=== PATIENT | male | born 1945 | race Caucasian/White ===

== ENCOUNTER 2018-01-08 19:58 | Inpatient (IN) | payer MEDICARE ==
[2018-01-08] MEDS ORDERED: Sodium Chloride 0.9% 10 ML Syringe FLUSH PRN (20:22)
[2018-01-08] MEDS ORDERED: Sodium Chloride 0.9% 2.5 ML Syringe FLUSH PRN (20:22)
[2018-01-08] MEDS ORDERED: Aspirin 81 MG Tab.Chew PO ONE (20:22)
--- NOTE | 2018-01-08 20:25 | EDM.PDOC ---
ED HPI GENERAL MEDICAL PROBLEM - General Chief Complaint: Respiratory Problem Stated Complaint: SOB Time Seen by Provider: 01/08/18 20:08 - History of Present Illness INITIAL COMMENTS - FREE TEXT/NARRATIVE: HISTORY AND PHYSICAL: History of present illness: The patient is a 72-year-old male with a history of congestive heart failure diabetes hypertension hypercholesterolemia who presents with a one-week history of progressive increasing shortness of breath with loose cough and progressive lower extremity edema worsened this evening. Patient's daughter called EMS who on arrival say his sats were in the 80s and the patient does not use oxygen at home. He does not recall ever being on C5 in the past. Patient received Lasix 80 mg, Solu-Medrol 125 mg and 3 dual meds per EMS prior to arrival. He states he does feel better and feels like he is moving air better. He denies any chest pain or abdominal pain and he does not weigh himself on a daily basis to know if he has increased weight. He does state that his lower extremities have been more edematous and a progressive manner over the last week or so. He did see his provider in the clinic, [facility], on Tuesday and had his Lasix dose increased. Patient currently denies any complaints of any pain and has been eating normally According to family member at bedside he has been in to the clinic over the last 2-4 weeks for progressive shortness of breath and they have tried to manage him as an outpatient. Review of systems: As per history of present illness and below otherwise all systems reviewed and negative. Past medical history: As per history of present illness and as reviewed below otherwise noncontributory. Surgical history: As per history of present illness and as reviewed below otherwise noncontributory. Social history: No reported history of drug or alcohol abuse. Family history: As per history of present illness and as reviewed below otherwise noncontributory. Physical exam: General: Well-developed well-nourished overweight man who has audible gurgling and a loose cough in the ER and vital signs have been noted by me. He is currently on oxygen therapy and his sats are 100% on my evaluation. HEENT: Atraumatic, normocephalic, pupils reactive, negative for conjunctival pallor or scleral icterus, mucous membranes moist, throat clear, neck supple, nontender, trachea midline. Lungs: Rhonchi throughout all lung palmer and some abdominal work of breathing but no intercostal muscle use, breath sounds equal bilaterally, chest nontender. Heart: S1S2, regular rate and rhythm and the patient was not placed in the supine position to evaluate for JVD due to his dyspnea. Abdomen: Soft, nondistended, nontender. There appears to be some fluid wave and bowel sounds are hypoactive. Negative for masses or hepatosplenomegaly. Negative for costovertebral tenderness. Pelvis: Stable nontender. Genitourinary: Deferred. Rectal: Deferred. Extremities: Atraumatic, negative for cords or calf pain. Neurovascular unremarkable. There is 3+ pitting edema of his lower extremities to the knee level but no tenderness. Neuro: Awake, alert, oriented. Cranial nerves II through XII unremarkable. Cerebellum unremarkable. Motor and sensory unremarkable throughout. Exam nonfocal. Skin: Overall pale appearance but there is no diaphoresis and turgor is normal Diagnostics: EKG chest x-ray CBC CMP BNP troponin INR ABG UA influenza lactic acid Therapeutics: Patient received Lasix, Solu-Medrol, DuoNeb's prior to arrival IV O2 monitor aspirin C Pap D50 Accu-Chek was performed on arrival to the ED and it was 35. Patient will be given dextrose IV and this will be monitored closely According to the family at bedside the patient had his Lasix dose increased when he was seen in the clinic on Tuesday and he currently takes 80 mg a day. re-eval--patient currently is onCPAP and tolerating it well. His vital signs are stable and we will check an ABG and reevaluate. Family at bedside as well as patient are aware of need for admission and we will continue monitoring his testing results. 2155: Case was discussed with our hospitalist Dr. Omer who was also recontacted with the troponin results. The patient has no acute findings on his EKG and has not had any complaints of chest pain. Dr. Omer is coming in to see and evaluate the patient for either admission here or for transfer. I will discuss this conversation and all testing results with the patient and family at bedside. I discussed all testing results and my concerns with the power of real estate attorney who is on the telephone, the patient's brother. He says that his breathing has been an issue for a long time and he is unsure of when the patient's last echocardiogram was but he does have a history of a stent in the past. According to the brother he was supposed to follow-up and have more testing but the patient never did so. Dr. Omer will come and evaluate for either admission here or transfer. Family is aware [id number]: Dr. Omer is here seeing the patient and evaluating him for disposition and plan Patient will be admitted here to our hospital. Critical care time excluding procedures: 31min Impression: Dyspnea, CHF exacerbation acute on chronic, elevated troponin, episode of hypoglycemia improved Definitive disposition and diagnosis as appropriate pending reevaluation and review of above. Treatments CONTACT CENTER ASSISTANT: Reports: Breathing Treatments, IV/IO - Related Data Allergies Allergy/AdvReac Type Severity Reaction Status Date / Time No Known Allergies Allergy Verified 01/08/18 20:09 Home Meds: Home Meds Dutasteride [Avodart] 0.5 mg PO DAILY 06/06/15 [History] Insulin Aspart [Novolog Flexpen] 1 injection SUBCUT ASDIRECTED 06/06/15 [History ] Insulin Detemir [Levemir] 25 units SUBCUT BID 06/06/15 [History] Losartan Potassium 50 mg PO DAILY 06/06/15 [History] Nitroglycerin [Nitrostat] 0.4 mg SL ASDIRECTED PRN 06/06/15 [History] Tamsulosin HCl 0.4 mg PO DAILY 06/06/15 [History] atorvaSTATin [Lipitor] 40 mg PO DAILY 06/06/15 [History] PARoxetine HCl [Paxil] 40 mg PO DAILY 08/05/15 [History] Furosemide [Lasix] 80 mg PO DAILY 01/08/18 [History] Potassium Chloride [Klor-Con M20] 1 tab PO DAILY 01/08/18 [History] Past Medical History Other HEENT History: hearing aids, wears glasses, top denture Other Gastrointestinal History: occasional heartburn Other Genitourinary History: frequent urination occasional incontinence Other Neuro History: states had holes drilled in his skull following concusion at 18 yrs old - Past Surgical History Other HEENT Surgeries/Procedures: hx fx jaw Other Male Surgeries/Procedures: hx vasectomy Social & Family History - Tobacco Use Smoking Status *Q: Never Smoker - Recreational Drug Use Recreational Drug Use: No Drug Use in Last 12 Months: No ED ROS GENERAL - Review of Systems Review Of Systems: ROS reveals no pertinent complaints other than HPI. ED EXAM, GENERAL - Physical Exam Exam: See Below (See dictation) Course - Vital Signs Last Recorded V/S: Last Vital Signs Temp 36.6 C 01/08/18 20:09 Pulse 96 01/08/18 22:46 Resp 21 H 01/08/18 22:46 BP 106/62 01/08/18 22:46 Pulse Ox 99 01/08/18 22:46 - Orders/Labs/Meds Orders: Active Orders 24 hr Category Date Time Status Blood Glucose Check, Bedside [RC] ONETIME Care 01/08/18 20:23 Active Cardiac Monitoring [RC] . DIRECTED Care 01/08/18 20:21 Active EKG Documentation Completion [RC] STAT Care 01/08/18 20:21 Active Oxygen Therapy, ED [RC] ASDIRECTED Care 01/08/18 20:21 Active Pulse Oximetry [RC] ASDIRECTED Care 01/08/18 20:21 Active RT BiPAP/CPAP [RC] ASDIRECTED Care 01/08/18 20:24 Active Chest 1V Frontal [CR] Stat Exams 01/08/18 20:22 Taken INFLUENZA A+B AG SCREEN [RM] Stat Lab 01/08/18 20:44 Ordered UA W/MICROSCOPIC [URIN] Stat Lab 01/08/18 22:05 Ordered Sodium Chloride 0.9% [Saline Flush] Med 01/08/18 20:22 Active 10 ml FLUSH ASDIRECTED PRN Sodium Chloride 0.9% [Saline Flush] Med 01/08/18 20:22 Active 2.5 ml FLUSH ASDIRECTED PRN Saline Lock Insert [OM.PC] Stat Oth 01/08/18 20:21 Ordered Medication Orders Insulin Aspart (Novolog) 0 unit SUBCUT TIDAC VAN; Protocol Sodium Chloride (Saline Flush) 10 ml FLUSH ASDIRECTED PRN PRN Reason: Keep Vein Open Last Admin: 01/08/18 20:39 Dose: 10 ml Sodium Chloride (Saline Flush) 2.5 ml FLUSH ASDIRECTED PRN PRN Reason: Keep Vein Open Last Admin: 01/08/18 20:37 Dose: 2.5 ml Labs: Laboratory Tests 01/08/18 01/08/18 01/08/18 Range/Units 20:31 20:37 20:37 WBC 8.75 (4.0-11.0) K/uL RBC 4.31 L (4.50-5.90) M/uL Hgb 12.6 L (13.0-17.0) g/dL Hct 39.0 (38.0-50.0) % MCV 90.5 (80.0-98.0) fL MCH 29.2 (27.0-32.0) pg MCHC 32.3 (31.0-37.0) g/dL RDW Std Deviation 49.1 (28.0-62.0) fl RDW Coeff of Osvaldo 15 (11.0-15.0) % Plt Count 134 L (150-400) K/uL MPV 10.40 (7.40-12.00) fL Neut % (Auto) 58.6 (48.0-80.0) % Lymph % (Auto) 29.7 (16.0-40.0) % Chaves % (Auto) 11.4 (0.0-15.0) % Eos % (Auto) 0.1 (0.0-7.0) % Baso % (Auto) 0.2 (0.0-1.5) % Neut # (Auto) 5.1 (1.4-5.7) K/uL Lymph # (Auto) 2.6 H (0.6-2.4) K/uL Chaves # (Auto) 1.0 H (0.0-0.8) K/uL Eos # (Auto) 0.0 (0.0-0.7) K/uL Baso # (Auto) 0.0 (0.0-0.1) K/uL Nucleated RBC % 0.0 /100WBC Nucleated RBCs # 0 K/uL INR 1.32 ABG pH (7.35-7.45) ABG pCO2 (35-45) mmHG ABG pO2 (75-100) mmHG ABG HCO3 ABG Total CO2 ABG Base Excess Lactate (0.20-2.00) mmol/L Sodium (136-148) mmol/L Potassium (3.5-5.1) mmol/L Chloride (98-107) mmol/L Carbon Dioxide (21.0-32.0) mmol/L BUN (7.0-18.0) mg/dL Creatinine (0.8-1.3) mg/dL Est Cr Clr Drug Dosing mL/min Estimated GFR (MDRD) ml/min Glucose (74-106) mg/dL POC Glucose 35 L (60-110) mg/dL Calcium (8.5-10.1) mg/dL Total Bilirubin (0.2-1.0) mg/dL AST (15-37) IU/L ALT (14-63) IU/L Alkaline Phosphatase (46-116) U/L Troponin I (0.000-0.056) ng/mL B-Natriuretic Peptide (<100) PG/ML Total Protein (6.4-8.2) g/dL Albumin (3.4-5.0) g/dL Globulin (2.0-3.5) g/dL Albumin/Globulin Ratio (1.3-2.8) Urine Color Urine Appearance Urine pH (5.0-8.0) Ur Specific Iliff (1.001-1.035) Urine Protein (NEGATIVE) mg/dL Urine Glucose (UA) (NEGATIVE) mg/dL Urine Ketones (NEGATIVE) mg/dL Urine Occult Blood (NEGATIVE) Urine Nitrite (NEGATIVE) Urine Bilirubin (NEGATIVE) Urine Urobilinogen (<2.0) EU/dL Ur Leukocyte Esterase (NEGATIVE) Urine RBC (0-2/HPF) Urine WBC (0-5/HPF) Ur Epithelial Cells (NONE-FEW) Urine Bacteria (NEGATIVE) 01/08/18 01/08/18 01/08/18 Range/Units 20:37 20:37 20:37 WBC (4.0-11.0) K/uL RBC (4.50-5.90) M/uL Hgb (13.0-17.0) g/dL Hct (38.0-50.0) % MCV (80.0-98.0) fL MCH (27.0-32.0) pg MCHC (31.0-37.0) g/dL RDW Std Deviation (28.0-62.0) fl RDW Coeff of Osvaldo (11.0-15.0) % Plt Count (150-400) K/uL MPV (7.40-12.00) fL Neut % (Auto) (48.0-80.0) % Lymph % (Auto) (16.0-40.0) % Chaves % (Auto) (0.0-15.0) % Eos % (Auto) (0.0-7.0) % Baso % (Auto) (0.0-1.5) % Neut # (Auto) (1.4-5.7) K/uL Lymph # (Auto) (0.6-2.4) K/uL Chaves # (Auto) (0.0-0.8) K/uL Eos # (Auto) (0.0-0.7) K/uL Baso # (Auto) (0.0-0.1) K/uL Nucleated RBC % /100WBC Nucleated RBCs # K/uL INR ABG pH (7.35-7.45) ABG pCO2 (35-45) mmHG ABG pO2 (75-100) mmHG ABG HCO3 ABG Total CO2 ABG Base Excess Lactate 1.8 (0.20-2.00) mmol/L Sodium 140 (136-148) mmol/L Potassium 3.6 (3.5-5.1) mmol/L Chloride 103 (98-107) mmol/L Carbon Dioxide 26.3 (21.0-32.0) mmol/L BUN 30 H (7.0-18.0) mg/dL Creatinine 1.4 H (0.8-1.3) mg/dL Est Cr Clr Drug Dosing 50.69 mL/min Estimated GFR (MDRD) 50.1 ml/min Glucose 40 L (74-106) mg/dL POC Glucose (60-110) mg/dL Calcium 9.6 (8.5-10.1) mg/dL Total Bilirubin 2.4 H (0.2-1.0) mg/dL AST 85 H (15-37) IU/L ALT 78 H (14-63) IU/L Alkaline Phosphatase 84 (46-116) U/L Troponin I 0.827 H* (0.000-0.056) ng/mL B-Natriuretic Peptide 1669 H (<100) PG/ML Total Protein 6.7 (6.4-8.2) g/dL Albumin 4.0 (3.4-5.0) g/dL Globulin 2.7 (2.0-3.5) g/dL Albumin/Globulin Ratio 1.5 (1.3-2.8) Urine Color Urine Appearance Urine pH (5.0-8.0) Ur Specific Iliff (1.001-1.035) Urine Protein (NEGATIVE) mg/dL Urine Glucose (UA) (NEGATIVE) mg/dL Urine Ketones (NEGATIVE) mg/dL Urine Occult Blood (NEGATIVE) Urine Nitrite (NEGATIVE) Urine Bilirubin (NEGATIVE) Urine Urobilinogen (<2.0) EU/dL Ur Leukocyte Esterase (NEGATIVE) Urine RBC (0-2/HPF) Urine WBC (0-5/HPF) Ur Epithelial Cells (NONE-FEW) Urine Bacteria (NEGATIVE) 01/08/18 01/08/18 01/08/18 Range/Units 21:05 21:07 22:05 WBC (4.0-11.0) K/uL RBC (4.50-5.90) M/uL Hgb (13.0-17.0) g/dL Hct (38.0-50.0) % MCV (80.0-98.0) fL MCH (27.0-32.0) pg MCHC (31.0-37.0) g/dL RDW Std Deviation (28.0-62.0) fl RDW Coeff of Osvaldo (11.0-15.0) % Plt Count (150-400) K/uL MPV (7.40-12.00) fL Neut % (Auto) (48.0-80.0) % Lymph % (Auto) (16.0-40.0) % Chaves % (Auto) (0.0-15.0) % Eos % (Auto) (0.0-7.0) % Baso % (Auto) (0.0-1.5) % Neut # (Auto) (1.4-5.7) K/uL Lymph # (Auto) (0.6-2.4) K/uL Chaves # (Auto) (0.0-0.8) K/uL Eos # (Auto) (0.0-0.7) K/uL Baso # (Auto) (0.0-0.1) K/uL Nucleated RBC % /100WBC Nucleated RBCs # K/uL INR ABG pH 7.404 (7.35-7.45) ABG pCO2 36 (35-45) mmHG ABG pO2 85 (75-100) mmHG ABG HCO3 22.8 ABG Total CO2 24 ABG Base Excess -2 Lactate (0.20-2.00) mmol/L Sodium (136-148) mmol/L Potassium (3.5-5.1) mmol/L Chloride (98-107) mmol/L Carbon Dioxide (21.0-32.0) mmol/L BUN (7.0-18.0) mg/dL Creatinine (0.8-1.3) mg/dL Est Cr Clr Drug Dosing mL/min Estimated GFR (MDRD) ml/min Glucose (74-106) mg/dL POC Glucose 105 (60-110) mg/dL Calcium (8.5-10.1) mg/dL Total Bilirubin (0.2-1.0) mg/dL AST (15-37) IU/L ALT (14-63) IU/L Alkaline Phosphatase (46-116) U/L Troponin I (0.000-0.056) ng/mL B-Natriuretic Peptide (<100) PG/ML Total Protein (6.4-8.2) g/dL Albumin (3.4-5.0) g/dL Globulin (2.0-3.5) g/dL Albumin/Globulin Ratio (1.3-2.8) Urine Color YELLOW Urine Appearance CLEAR Urine pH 5.0 (5.0-8.0) Ur Specific Iliff 1.010 (1.001-1.035) Urine Protein NEGATIVE (NEGATIVE) mg/dL Urine Glucose (UA) NEGATIVE (NEGATIVE) mg/dL Urine Ketones NEGATIVE (NEGATIVE) mg/dL Urine Occult Blood NEGATIVE (NEGATIVE) Urine Nitrite NEGATIVE (NEGATIVE) Urine Bilirubin NEGATIVE (NEGATIVE) Urine Urobilinogen 0.2 (<2.0) EU/dL Ur Leukocyte Esterase NEGATIVE (NEGATIVE) Urine RBC 0-1 (0-2/HPF) Urine WBC 0-1 (0-5/HPF) Ur Epithelial Cells RARE (NONE-FEW) Urine Bacteria FEW (NEGATIVE) Meds: Medications Generic Name Dose Route Start Last Admin Trade Name Freq PRN Reason Stop Dose Admin Insulin Aspart 0 unit 01/09/18 07:30 Novolog SUBCUT TIDAC [facility] Protocol Sodium Chloride 10 ml 01/08/18 20:22 01/08/18 20:39 Saline Flush FLUSH 10 ml ASDIRECTED PRN Administration Keep Vein Open Sodium Chloride 2.5 ml 01/08/18 20:22 01/08/18 20:37 Saline Flush FLUSH 2.5 ml ASDIRECTED PRN Administration Keep Vein Open Discontinued Medications Generic Name Dose Route Start Last Admin Trade Name Jordyn PRN Reason Stop Dose Admin Aspirin 324 mg 01/08/18 20:22 01/08/18 20:37 Aspirin PO 01/08/18 20:23 324 mg ONETIME ONE Administration Dextrose/Water 50 ml 01/08/18 20:32 01/08/18 20:39 Dextrose 50% In Water IVPUSH 01/08/18 20:33 50 ml ONETIME ONE Administration Departure - Departure Time of Disposition: 23:24 Disposition: Admitted As Inpatient 68 Condition: Good Clinical Impression: Elevated troponin Congestive heart failure Qualifiers: Heart failure type: unspecified Heart failure chronicity: acute on chronic Qualified Code(s): I50.9 - Heart failure, unspecified - Discharge Information - My Orders Last 24 Hours: My Active Orders 01/08/18 20:21 Cardiac Monitoring [RC] . DIRECTED EKG Documentation Completion [RC] STAT Oxygen Therapy, ED [RC] ASDIRECTED Pulse Oximetry [RC] ASDIRECTED Saline Lock Insert [OM.PC] Stat 01/08/18 20:22 Chest 1V Frontal [CR] Stat Sodium Chloride 0.9% [Saline Flush] 10 ml FLUSH ASDIRECTED PRN Sodium Chloride 0.9% [Saline Flush] 2.5 ml FLUSH ASDIRECTED PRN 01/08/18 20:23 Blood Glucose Check, Bedside [RC] ONETIME 01/08/18 20:24 RT BiPAP/CPAP [RC] ASDIRECTED 01/08/18 20:44 INFLUENZA A+B AG SCREEN [RM] Stat 01/08/18 22:05 UA W/MICROSCOPIC [URIN] Stat - Assessment/Plan Last 24 Hours: My Active Orders 01/08/18 20:21 Cardiac Monitoring [RC] . DIRECTED EKG Documentation Completion [RC] STAT Oxygen Therapy, ED [RC] ASDIRECTED Pulse Oximetry [RC] ASDIRECTED Saline Lock Insert [OM.PC] Stat 01/08/18 20:22 Chest 1V Frontal [CR] Stat Sodium Chloride 0.9% [Saline Flush] 10 ml FLUSH ASDIRECTED PRN Sodium Chloride 0.9% [Saline Flush] 2.5 ml FLUSH ASDIRECTED PRN 01/08/18 20:23 Blood Glucose Check, Bedside [RC] ONETIME 01/08/18 20:24 RT BiPAP/CPAP [RC] ASDIRECTED 01/08/18 20:44 INFLUENZA A+B AG SCREEN [RM] Stat 01/08/18 22:05 UA W/MICROSCOPIC [URIN] Stat
[2018-01-08] MEDS ORDERED: 50% Dextrose in Water 50 ML Syringe IVPUSH ONE (20:32)
--- NOTE | 2018-01-08 23:18 | PCM.HP ---
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 Over the past month he has had shortness of breath with exertion, increase leg edema and orthopnea. This week his lasix dose was increased from 40mg to 80 mg. He has a gradual worsening over the past several days. Patient reports a rattling in his chest. He arrived by EMS on Bipap and he received 80mg of lasix IV, solumedrol and duonebs. He was taken off the Bipap in the ED and satting 98% on NRB. - Related Data Allergies/Adverse Reactions: Allergies Allergy/AdvReac Type Severity Reaction Status Date / Time No Known Allergies Allergy Verified 01/08/18 20:09 Home Medications: Home Meds Dutasteride [Avodart] 0.5 mg PO DAILY 06/06/15 [History] Insulin Aspart [Novolog Flexpen] 1 injection SUBCUT ASDIRECTED 06/06/15 [History ] Insulin Detemir [Levemir] 25 units SUBCUT BID 06/06/15 [History] Losartan Potassium 50 mg PO DAILY 06/06/15 [History] Nitroglycerin [Nitrostat] 0.4 mg SL ASDIRECTED PRN 06/06/15 [History] Tamsulosin HCl 0.4 mg PO DAILY 06/06/15 [History] atorvaSTATin [Lipitor] 40 mg PO DAILY 06/06/15 [History] PARoxetine HCl [Paxil] 40 mg PO DAILY 08/05/15 [History] Furosemide [Lasix] 80 mg PO DAILY 01/08/18 [History] Potassium Chloride [Klor-Con M20] 1 tab PO DAILY 01/08/18 [History] Past Medical History Other HEENT History: hearing aids, wears glasses, top denture Cardiovascular History: Reports: Heart Failure, High Cholesterol, Hypertension, Other (See Below) Other Cardiovascular History: Heart Attack Respiratory History: Reports: None Other Gastrointestinal History: occasional heartburn Other Genitourinary History: frequent urination occasional incontinence Musculoskeletal History: Reports: None Other Neuro History: states had holes drilled in his skull following concusion at 18 yrs old Psychiatric History: Reports: None Endocrine/Metabolic History: Reports: Diabetes, Type II Hematologic History: Reports: None Immunologic History: Reports: None Oncologic (Cancer) History: Reports: None Dermatologic History: Reports: None - Infectious Disease History Infectious Disease History: Reports: None - Past Surgical History Other HEENT Surgeries/Procedures: hx fx jaw Other Male Surgeries/Procedures: hx vasectomy Social & Family History - Family History Family Medical History: Noncontributory - Tobacco Use Smoking Status *Q: Never Smoker Used Tobacco, but Quit: No - Caffeine Use Caffeine Use: Reports: Coffee - Recreational Drug Use Recreational Drug Use: No Drug Use in Last 12 Months: No H&P Review of Systems - Review of Systems: Review Of Systems: ROS reveals no pertinent complaints other than HPI. Exam - Exam Exam: See Below - Vital Signs Vital Signs: Last Vital Signs Temp 36.6 C 01/08/18 20:09 Pulse 96 01/08/18 22:46 Resp 21 H 01/08/18 22:46 BP 106/62 01/08/18 22:46 Pulse Ox 99 01/08/18 22:46 Weight: 117.934 kg - Exam General: Alert HEENT: Mucosa Moist & [place] Lungs: Rales, Other (excessory muscle use) Cardiovascular: Regular Rate, Regular Rhythm GI/Abdominal Exam: Soft, Non-Tender Extremities: Pedal Edema (+2) Skin: Warm, Dry, Intact - Patient Data Lab Results Last 24 hrs: Laboratory Results - last 24 hr 01/08/18 01/08/18 01/08/18 Range/Units 20:31 20:37 20:37 WBC 8.75 (4.0-11.0) K/uL RBC 4.31 L (4.50-5.90) M/uL Hgb 12.6 L (13.0-17.0) g/dL Hct 39.0 (38.0-50.0) % MCV 90.5 (80.0-98.0) fL MCH 29.2 (27.0-32.0) pg MCHC 32.3 (31.0-37.0) g/dL RDW Std Deviation 49.1 (28.0-62.0) fl RDW Coeff of Osvaldo 15 (11.0-15.0) % Plt Count 134 L (150-400) K/uL MPV 10.40 (7.40-12.00) fL Neut % (Auto) 58.6 (48.0-80.0) % Lymph % (Auto) 29.7 (16.0-40.0) % [place] % (Auto) 11.4 (0.0-15.0) % Eos % (Auto) 0.1 (0.0-7.0) % Baso % (Auto) 0.2 (0.0-1.5) % Neut # (Auto) 5.1 (1.4-5.7) K/uL Lymph # (Auto) 2.6 H (0.6-2.4) K/uL [place] # (Auto) 1.0 H (0.0-0.8) K/uL Eos # (Auto) 0.0 (0.0-0.7) K/uL Baso # (Auto) 0.0 (0.0-0.1) K/uL Nucleated RBC % 0.0 /100WBC Nucleated RBCs # 0 K/uL INR 1.32 ABG pH (7.35-7.45) ABG pCO2 (35-45) mmHG ABG pO2 (75-100) mmHG ABG HCO3 ABG Total CO2 ABG Base Excess Lactate (0.20-2.00) mmol/L Sodium (136-148) mmol/L Potassium (3.5-5.1) mmol/L Chloride (98-107) mmol/L Carbon Dioxide (21.0-32.0) mmol/L BUN (7.0-18.0) mg/dL Creatinine (0.8-1.3) mg/dL Est Cr Clr Drug Dosing mL/min Estimated GFR (MDRD) ml/min Glucose (74-106) mg/dL POC Glucose 35 L (60-110) mg/dL Calcium (8.5-10.1) mg/dL Total Bilirubin (0.2-1.0) mg/dL AST (15-37) IU/L ALT (14-63) IU/L Alkaline Phosphatase (46-116) U/L Troponin I (0.000-0.056) ng/mL B-Natriuretic Peptide (<100) PG/ML Total Protein (6.4-8.2) g/dL Albumin (3.4-5.0) g/dL Globulin (2.0-3.5) g/dL Albumin/Globulin Ratio (1.3-2.8) Urine Color Urine Appearance Urine pH (5.0-8.0) Ur Specific [place] (1.001-1.035) Urine Protein (NEGATIVE) mg/dL Urine Glucose (UA) (NEGATIVE) mg/dL Urine Ketones (NEGATIVE) mg/dL Urine Occult Blood (NEGATIVE) Urine Nitrite (NEGATIVE) Urine Bilirubin (NEGATIVE) Urine Urobilinogen (<2.0) EU/dL Ur Leukocyte Esterase (NEGATIVE) Urine RBC (0-2/HPF) Urine WBC (0-5/HPF) Ur Epithelial Cells (NONE-FEW) Urine Bacteria (NEGATIVE) 01/08/18 01/08/18 01/08/18 Range/Units 20:37 20:37 20:37 WBC (4.0-11.0) K/uL RBC (4.50-5.90) M/uL Hgb (13.0-17.0) g/dL Hct (38.0-50.0) % MCV (80.0-98.0) fL MCH (27.0-32.0) pg MCHC (31.0-37.0) g/dL RDW Std Deviation (28.0-62.0) fl RDW Coeff of [place]val[place] (11.0-15.0) % Plt Count (150-400) K/uL MPV (7.40-12.00) fL Neut % (Auto) (48.0-80.0) % Lymph % (Auto) (16.0-40.0) % [place] % (Auto) (0.0-15.0) % Eos % (Auto) (0.0-7.0) % Baso % (Auto) (0.0-1.5) % Neut # (Auto) (1.4-5.7) K/uL Lymph # (Auto) (0.6-2.4) K/uL [place] # (Auto) (0.0-0.8) K/uL Eos # (Auto) (0.0-0.7) K/uL Baso # (Auto) (0.0-0.1) K/uL Nucleated RBC % /100WBC Nucleated RBCs # K/uL INR ABG pH (7.35-7.45) ABG pCO2 (35-45) mmHG ABG pO2 (75-100) mmHG ABG HCO3 ABG Total CO2 ABG Base Excess Lactate 1.8 (0.20-2.00) mmol/L Sodium 140 (136-148) mmol/L Potassium 3.6 (3.5-5.1) mmol/L Chloride 103 (98-107) mmol/L Carbon Dioxide 26.3 (21.0-32.0) mmol/L BUN 30 H (7.0-18.0) mg/dL Creatinine 1.4 H (0.8-1.3) mg/dL Est Cr Clr Drug Dosing 50.69 mL/min Estimated GFR (MDRD) 50.1 ml/min Glucose 40 L (74-106) mg/dL POC Glucose (60-110) mg/dL Calcium 9.6 (8.5-10.1) mg/dL Total Bilirubin 2.4 H (0.2-1.0) mg/dL AST 85 H (15-37) IU/L ALT 78 H (14-63) IU/L Alkaline Phosphatase 84 (46-116) U/L Troponin I 0.827 H* (0.000-0.056) ng/mL B-Natriuretic Peptide 1669 H (<100) PG/ML Total Protein 6.7 (6.4-8.2) g/dL Albumin 4.0 (3.4-5.0) g/dL Globulin 2.7 (2.0-3.5) g/dL Albumin/Globulin Ratio 1.5 (1.3-2.8) Urine Color Urine Appearance Urine pH (5.0-8.0) Ur Specific [place] (1.001-1.035) Urine Protein (NEGATIVE) mg/dL Urine Glucose (UA) (NEGATIVE) mg/dL Urine Ketones (NEGATIVE) mg/dL Urine Occult Blood (NEGATIVE) Urine Nitrite (NEGATIVE) Urine Bilirubin (NEGATIVE) Urine Urobilinogen (<2.0) EU/dL Ur Leukocyte Esterase (NEGATIVE) Urine RBC (0-2/HPF) Urine WBC (0-5/HPF) Ur Epithelial Cells (NONE-FEW) Urine Bacteria (NEGATIVE) 01/08/18 01/08/18 01/08/18 Range/Units 21:05 21:07 22:05 WBC (4.0-11.0) K/uL RBC (4.50-5.90) M/uL Hgb (13.0-17.0) g/dL Hct (38.0-50.0) % MCV (80.0-98.0) fL MCH (27.0-32.0) pg MCHC (31.0-37.0) g/dL RDW Std Deviation (28.0-62.0) fl RDW Coeff of [place] (11.0-15.0) % Plt Count (150-400) K/uL MPV (7.40-12.00) fL Neut % (Auto) (48.0-80.0) % Lymph % (Auto) (16.0-40.0) % [place] % (Auto) (0.0-15.0) % Eos % (Auto) (0.0-7.0) % Baso % (Auto) (0.0-1.5) % Neut # (Auto) (1.4-5.7) K/uL Lymph # (Auto) (0.6-2.4) K/uL [place] # (Auto) (0.0-0.8) K/uL Eos # (Auto) (0.0-0.7) K/uL Baso # (Auto) (0.0-0.1) K/uL Nucleated RBC % /100WBC Nucleated RBCs # K/uL INR ABG pH 7.404 (7.35-7.45) ABG pCO2 36 (35-45) mmHG ABG pO2 85 (75-100) mmHG ABG HCO3 22.8 ABG Total CO2 24 ABG Base Excess -2 Lactate (0.20-2.00) mmol/L Sodium (136-148) mmol/L Potassium (3.5-5.1) mmol/L Chloride (98-107) mmol/L Carbon Dioxide (21.0-32.0) mmol/L BUN (7.0-18.0) mg/dL Creatinine (0.8-1.3) mg/dL Est Cr Clr Drug Dosing mL/min Estimated GFR (MDRD) ml/min Glucose (74-106) mg/dL POC Glucose 105 (60-110) mg/dL Calcium (8.5-10.1) mg/dL Total Bilirubin (0.2-1.0) mg/dL AST (15-37) IU/L ALT (14-63) IU/L Alkaline Phosphatase (46-116) U/L Troponin I (0.000-0.056) ng/mL B-Natriuretic Peptide (<100) PG/ML Total Protein (6.4-8.2) g/dL Albumin (3.4-5.0) g/dL Globulin (2.0-3.5) g/dL Albumin/Globulin Ratio (1.3-2.8) Urine Color YELLOW Urine Appearance CLEAR Urine pH 5.0 (5.0-8.0) Ur Specific [place] 1.010 (1.001-1.035) Urine Protein NEGATIVE (NEGATIVE) mg/dL Urine Glucose (UA) NEGATIVE (NEGATIVE) mg/dL Urine Ketones NEGATIVE (NEGATIVE) mg/dL Urine Occult Blood NEGATIVE (NEGATIVE) Urine Nitrite NEGATIVE (NEGATIVE) Urine Bilirubin NEGATIVE (NEGATIVE) Urine Urobilinogen 0.2 (<2.0) EU/dL Ur Leukocyte Esterase NEGATIVE (NEGATIVE) Urine RBC 0-1 (0-2/HPF) Urine WBC 0-1 (0-5/HPF) Ur Epithelial Cells RARE (NONE-FEW) Urine Bacteria FEW (NEGATIVE) Result Diagrams: 01/09/18 04:50 01/09/18 04:50 Yoan Results Last 24 hrs: Microbiology 01/08/18 20:44 Influenza Type A Antigen Screen - Final Nasopharyngeal Swab NEGATIVE INFLUENZA A VIRUS AG Influenza Type B Antigen Screen - Final NEGATIVE INFLUENZA B VIRUS AG Imaging Impressions Last 24 hrs: CXR: bibasilar infiltrates EKG INTERPRETATION Rhythm: NSR Rate (Beats/Min): 105 ST-T: Normal Problem List Initiated/Reviewed/Updated: Yes Orders Last 24hrs: Active Orders 24 hr Category Date Time Status Blood Glucose Check, Bedside [RC] ONETIME Care 01/08/18 20:23 Active Cardiac Monitoring [RC] . DIRECTED Care 01/08/18 20:21 Active EKG Documentation Completion [RC] STAT Care 01/08/18 20:21 Active Oxygen Therapy, ED [RC] ASDIRECTED Care 01/08/18 20:21 Active Pulse Oximetry [RC] ASDIRECTED Care 01/08/18 20:21 Active RT BiPAP/CPAP [RC] ASDIRECTED Care 01/08/18 20:24 Active Chest 1V Frontal [CR] Stat Exams 01/08/18 20:22 Taken INFLUENZA A+B AG SCREEN [RM] Stat Lab 01/08/18 20:44 Ordered UA W/MICROSCOPIC [URIN] Stat Lab 01/08/18 22:05 Ordered Sodium Chloride 0.9% [Saline Flush] Med 01/08/18 20:22 Active 10 ml FLUSH ASDIRECTED PRN Sodium Chloride 0.9% [Saline Flush] Med 01/08/18 20:22 Active 2.5 ml FLUSH ASDIRECTED PRN Saline Lock Insert [OM.PC] Stat Oth 01/08/18 20:21 Ordered Medication Orders Sodium Chloride (Saline Flush) 10 ml FLUSH ASDIRECTED PRN PRN Reason: Keep Vein Open Last Admin: 01/08/18 20:39 Dose: 10 ml Sodium Chloride (Saline Flush) 2.5 ml FLUSH ASDIRECTED PRN PRN Reason: Keep Vein Open Last Admin: 01/08/18 20:37 Dose: 2.5 ml Assessment/Plan Comment:: 72 yo male admitted with acute hypoxic respiratory and CHF exacerbation CHF exacerbation will diuresis with lasix, has received 80mg of lasix and is making urine Acute hypoxic respiratory failure: will continue to monitor may benefit BIPAP but right now patient is refusing Mildly elevated troponin: likely troponin leak from acute illness. has received ASA, will trend Hypoglycemia: resolved with D50 will continue to monitor
[2018-01-09] MEDS: Heparin Sodium 5,000 Units/ML Vial SUBCUT SCH ×4 (00:36→22:30)
[2018-01-09] MEDS ORDERED: 50% Dextrose in Water 50 ML Syringe IVPUSH STA (00:40)
[2018-01-09] MEDS: Albuterol/Ipratropium 3.0-0.5 MG/3 ML Neb Soln NEB PRN ×2 (00:50→19:47)
[2018-01-09] MEDS: Dextrose 5% in Water 1,000 ML IV SCH (01:25)
[2018-01-09] MEDS: Insulin Aspart 100 Units/ML 3 ML Pen SUBCUT SCH ×3 (08:06→17:24)
[2018-01-09] MEDS ORDERED: Furosemide 40 MG/4 ML VIAL IVPUSH ONE ×3 (09:00→10:37)
--- NOTE | 2018-01-09 09:59 | CR ---
EXAMINATION: Portable chest radiograph. HISTORY: Shortness of breath. FINDINGS: The trachea is midline. The heart is borderline in size. The cardiomediastinal silhouette is within n ormal limits. No pulmonary infiltrates, effusions or pneumothorax. Osseous structures appear unremarkable. IMPRESSION: No acute cardiopulmonary process.
--- NOTE | 2018-01-09 11:07 | PCM.PN ---
- General Info Date of Service: 01/09/18 Subjective Update: Patient is still having obvious fluid retention, he has audible rales, he does however feel better than yesterday. Patient denies any fevers or chills at the present moment. Still quite short of breath. - Patient Data Vitals - Most Recent: Last Vital Signs Temp 36.4 C 01/09/18 08:00 Pulse 92 01/09/18 06:46 Resp 26 H 01/09/18 10:00 BP 119/83 01/09/18 10:00 Pulse Ox 95 01/09/18 10:00 Weight - Most Recent: 115.3 kg I&O - Last 24 Hours: Intake & Output 01/08/18 01/09/18 01/09/18 22:59 06:59 14:59 Intake Total 420 120 Output Total 1450 750 Balance -1030 -630 Lab Results Last 24 Hours: Laboratory Results - last 24 hr 01/08/18 01/08/18 01/08/18 Range/Units 20:31 20:37 20:37 WBC 8.75 (4.0-11.0) K/uL RBC 4.31 L (4.50-5.90) M/uL Hgb 12.6 L (13.0-17.0) g/dL Hct 39.0 (38.0-50.0) % MCV 90.5 (80.0-98.0) fL MCH 29.2 (27.0-32.0) pg MCHC 32.3 (31.0-37.0) g/dL RDW Std Deviation 49.1 (28.0-62.0) fl RDW Coeff of Osvaldo 15 (11.0-15.0) % Plt Count 134 L (150-400) K/uL MPV 10.40 (7.40-12.00) fL Neut % (Auto) 58.6 (48.0-80.0) % Lymph % (Auto) 29.7 (16.0-40.0) % [place] % (Auto) 11.4 (0.0-15.0) % Eos % (Auto) 0.1 (0.0-7.0) % Baso % (Auto) 0.2 (0.0-1.5) % Neut # (Auto) 5.1 (1.4-5.7) K/uL Lymph # (Auto) 2.6 H (0.6-2.4) K/uL [place] # (Auto) 1.0 H (0.0-0.8) K/uL Eos # (Auto) 0.0 (0.0-0.7) K/uL Baso # (Auto) 0.0 (0.0-0.1) K/uL Nucleated RBC % 0.0 /100WBC Nucleated RBCs # 0 K/uL INR 1.32 ABG pH (7.35-7.45) ABG pCO2 (35-45) mmHG ABG pO2 (75-100) mmHG ABG HCO3 ABG Total CO2 ABG Base Excess Lactate (0.20-2.00) mmol/L Sodium (136-148) mmol/L Potassium (3.5-5.1) mmol/L Chloride (98-107) mmol/L Carbon Dioxide (21.0-32.0) mmol/L BUN (7.0-18.0) mg/dL Creatinine (0.8-1.3) mg/dL Est Cr Clr Drug Dosing mL/min Estimated GFR (MDRD) ml/min Glucose (74-106) mg/dL POC Glucose 35 L (60-110) mg/dL Calcium (8.5-10.1) mg/dL Total Bilirubin (0.2-1.0) mg/dL AST (15-37) IU/L ALT (14-63) IU/L Alkaline Phosphatase (46-116) U/L Troponin I (0.000-0.056) ng/mL B-Natriuretic Peptide (<100) PG/ML Total Protein (6.4-8.2) g/dL Albumin (3.4-5.0) g/dL Globulin (2.0-3.5) g/dL Albumin/Globulin Ratio (1.3-2.8) Urine Color Urine Appearance Urine pH (5.0-8.0) Ur Specific [place] (1.001-1.035) Urine Protein (NEGATIVE) mg/dL Urine Glucose (UA) (NEGATIVE) mg/dL Urine Ketones (NEGATIVE) mg/dL Urine Occult Blood (NEGATIVE) Urine Nitrite (NEGATIVE) Urine Bilirubin (NEGATIVE) Urine Urobilinogen (<2.0) EU/dL Ur Leukocyte Esterase (NEGATIVE) Urine RBC (0-2/HPF) Urine WBC (0-5/HPF) Ur Epithelial Cells (NONE-FEW) Urine Bacteria (NEGATIVE) 01/08/18 01/08/18 01/08/18 Range/Units 20:37 20:37 20:37 WBC (4.0-11.0) K/uL RBC (4.50-5.90) M/uL Hgb (13.0-17.0) g/dL Hct (38.0-50.0) % MCV (80.0-98.0) fL MCH (27.0-32.0) pg MCHC (31.0-37.0) g/dL RDW Std Deviation (28.0-62.0) fl RDW Coeff of Osvaldo (11.0-15.0) % Plt Count (150-400) K/uL MPV (7.40-12.00) fL Neut % (Auto) (48.0-80.0) % Lymph % (Auto) (16.0-40.0) % [place] % (Auto) (0.0-15.0) % Eos % (Auto) (0.0-7.0) % Baso % (Auto) (0.0-1.5) % Neut # (Auto) (1.4-5.7) K/uL Lymph # (Auto) (0.6-2.4) K/uL [place] # (Auto) (0.0-0.8) K/uL Eos # (Auto) (0.0-0.7) K/uL Baso # (Auto) (0.0-0.1) K/uL Nucleated RBC % /100WBC Nucleated RBCs # K/uL INR ABG pH (7.35-7.45) ABG pCO2 (35-45) mmHG ABG pO2 (75-100) mmHG ABG HCO3 ABG Total CO2 ABG Base Excess Lactate 1.8 (0.20-2.00) mmol/L Sodium 140 (136-148) mmol/L Potassium 3.6 (3.5-5.1) mmol/L Chloride 103 (98-107) mmol/L Carbon Dioxide 26.3 (21.0-32.0) mmol/L BUN 30 H (7.0-18.0) mg/dL Creatinine 1.4 H (0.8-1.3) mg/dL Est Cr Clr Drug Dosing 50.69 mL/min Estimated GFR (MDRD) 50.1 ml/min Glucose 40 L (74-106) mg/dL POC Glucose (60-110) mg/dL Calcium 9.6 (8.5-10.1) mg/dL Total Bilirubin 2.4 H (0.2-1.0) mg/dL AST 85 H (15-37) IU/L ALT 78 H (14-63) IU/L Alkaline Phosphatase 84 (46-116) U/L Troponin I 0.827 H* (0.000-0.056) ng/mL B-Natriuretic Peptide 1669 H (<100) PG/ML Total Protein 6.7 (6.4-8.2) g/dL Albumin 4.0 (3.4-5.0) g/dL Globulin 2.7 (2.0-3.5) g/dL Albumin/Globulin Ratio 1.5 (1.3-2.8) Urine Color Urine Appearance Urine pH (5.0-8.0) Ur Specific [place] (1.001-1.035) Urine Protein (NEGATIVE) mg/dL Urine Glucose (UA) (NEGATIVE) mg/dL Urine Ketones (NEGATIVE) mg/dL Urine Occult Blood (NEGATIVE) Urine Nitrite (NEGATIVE) Urine Bilirubin (NEGATIVE) Urine Urobilinogen (<2.0) EU/dL Ur Leukocyte Esterase (NEGATIVE) Urine RBC (0-2/HPF) Urine WBC (0-5/HPF) Ur Epithelial Cells (NONE-FEW) Urine Bacteria (NEGATIVE) 01/08/18 01/08/18 01/08/18 Range/Units 21:05 21:07 22:05 WBC (4.0-11.0) K/uL RBC (4.50-5.90) M/uL Hgb (13.0-17.0) g/dL Hct (38.0-50.0) % MCV (80.0-98.0) fL MCH (27.0-32.0) pg MCHC (31.0-37.0) g/dL RDW Std Deviation (28.0-62.0) fl RDW Coeff of Osvaldo (11.0-15.0) % Plt Count (150-400) K/uL MPV (7.40-12.00) fL Neut % (Auto) (48.0-80.0) % Lymph % (Auto) (16.0-40.0) % [place] % (Auto) (0.0-15.0) % Eos % (Auto) (0.0-7.0) % Baso % (Auto) (0.0-1.5) % Neut # (Auto) (1.4-5.7) K/uL Lymph # (Auto) (0.6-2.4) K/uL [place] # (Auto) (0.0-0.8) K/uL Eos # (Auto) (0.0-0.7) K/uL Baso # (Auto) (0.0-0.1) K/uL Nucleated RBC % /100WBC Nucleated RBCs # K/uL INR ABG pH 7.404 (7.35-7.45) ABG pCO2 36 (35-45) mmHG ABG pO2 85 (75-100) mmHG ABG HCO3 22.8 ABG Total CO2 24 ABG Base Excess -2 Lactate (0.20-2.00) mmol/L Sodium (136-148) mmol/L Potassium (3.5-5.1) mmol/L Chloride (98-107) mmol/L Carbon Dioxide (21.0-32.0) mmol/L BUN (7.0-18.0) mg/dL Creatinine (0.8-1.3) mg/dL Est Cr Clr Drug Dosing mL/min Estimated GFR (MDRD) ml/min Glucose (74-106) mg/dL POC Glucose 105 (60-110) mg/dL Calcium (8.5-10.1) mg/dL Total Bilirubin (0.2-1.0) mg/dL AST (15-37) IU/L ALT (14-63) IU/L Alkaline Phosphatase (46-116) U/L Troponin I (0.000-0.056) ng/mL B-Natriuretic Peptide (<100) PG/ML Total Protein (6.4-8.2) g/dL Albumin (3.4-5.0) g/dL Globulin (2.0-3.5) g/dL Albumin/Globulin Ratio (1.3-2.8) Urine Color YELLOW Urine Appearance CLEAR Urine pH 5.0 (5.0-8.0) Ur Specific [place] 1.010 (1.001-1.035) Urine Protein NEGATIVE (NEGATIVE) mg/dL Urine Glucose (UA) NEGATIVE (NEGATIVE) mg/dL Urine Ketones NEGATIVE (NEGATIVE) mg/dL Urine Occult Blood NEGATIVE (NEGATIVE) Urine Nitrite NEGATIVE (NEGATIVE) Urine Bilirubin NEGATIVE (NEGATIVE) Urine Urobilinogen 0.2 (<2.0) EU/dL Ur Leukocyte Esterase NEGATIVE (NEGATIVE) Urine RBC 0-1 (0-2/HPF) Urine WBC 0-1 (0-5/HPF) Ur Epithelial Cells RARE (NONE-FEW) Urine Bacteria FEW (NEGATIVE) 01/09/18 01/09/18 01/09/18 Range/Units 00:31 02:04 04:17 WBC (4.0-11.0) K/uL RBC (4.50-5.90) M/uL Hgb (13.0-17.0) g/dL Hct (38.0-50.0) % MCV (80.0-98.0) fL MCH (27.0-32.0) pg MCHC (31.0-37.0) g/dL RDW Std Deviation (28.0-62.0) fl RDW Coeff of [place] (11.0-15.0) % Plt Count (150-400) K/uL MPV (7.40-12.00) fL Neut % (Auto) (48.0-80.0) % Lymph % (Auto) (16.0-40.0) % [place] % (Auto) (0.0-15.0) % Eos % (Auto) (0.0-7.0) % Baso % (Auto) (0.0-1.5) % Neut # (Auto) (1.4-5.7) K/uL Lymph # (Auto) (0.6-2.4) K/uL [place] # (Auto) (0.0-0.8) K/uL Eos # (Auto) (0.0-0.7) K/uL Baso # (Auto) (0.0-0.1) K/uL Nucleated RBC % /100WBC Nucleated RBCs # K/uL INR ABG pH (7.35-7.45) ABG pCO2 (35-45) mmHG ABG pO2 (75-100) mmHG ABG HCO3 ABG Total CO2 ABG Base Excess Lactate (0.20-2.00) mmol/L Sodium (136-148) mmol/L Potassium (3.5-5.1) mmol/L Chloride (98-107) mmol/L Carbon Dioxide (21.0-32.0) mmol/L BUN (7.0-18.0) mg/dL Creatinine (0.8-1.3) mg/dL Est Cr Clr Drug Dosing mL/min Estimated GFR (MDRD) ml/min Glucose (74-106) mg/dL POC Glucose 38 L 100 137 H (60-110) mg/dL Calcium (8.5-10.1) mg/dL Total Bilirubin (0.2-1.0) mg/dL AST (15-37) IU/L ALT (14-63) IU/L Alkaline Phosphatase (46-116) U/L Troponin I (0.000-0.056) ng/mL B-Natriuretic Peptide (<100) PG/ML Total Protein (6.4-8.2) g/dL Albumin (3.4-5.0) g/dL Globulin (2.0-3.5) g/dL Albumin/Globulin Ratio (1.3-2.8) Urine Color Urine Appearance Urine pH (5.0-8.0) Ur Specific [place] (1.001-1.035) Urine Protein (NEGATIVE) mg/dL Urine Glucose (UA) (NEGATIVE) mg/dL Urine Ketones (NEGATIVE) mg/dL Urine Occult Blood (NEGATIVE) Urine Nitrite (NEGATIVE) Urine Bilirubin (NEGATIVE) Urine Urobilinogen (<2.0) EU/dL Ur Leukocyte Esterase (NEGATIVE) Urine RBC (0-2/HPF) Urine WBC (0-5/HPF) Ur Epithelial Cells (NONE-FEW) Urine Bacteria (NEGATIVE) 01/09/18 01/09/18 01/09/18 Range/Units 04:50 04:50 04:50 WBC 8.16 (4.0-11.0) K/uL RBC 4.20 L (4.50-5.90) M/uL Hgb 12.2 L (13.0-17.0) g/dL Hct 37.7 L (38.0-50.0) % MCV 89.8 (80.0-98.0) fL MCH 29.0 (27.0-32.0) pg MCHC 32.4 (31.0-37.0) g/dL RDW Std Deviation 49.3 (28.0-62.0) fl RDW Coeff of [place] 15 (11.0-15.0) % Plt Count 130 L (150-400) K/uL MPV 10.60 (7.40-12.00) fL Neut % (Auto) 89.0 H (48.0-80.0) % Lymph % (Auto) 3.9 L (16.0-40.0) % [place] % (Auto) 7.0 (0.0-15.0) % Eos % (Auto) 0.0 (0.0-7.0) % Baso % (Auto) 0.1 (0.0-1.5) % Neut # (Auto) 7.3 H (1.4-5.7) K/uL Lymph # (Auto) 0.3 L (0.6-2.4) K/uL [place] # (Auto) 0.6 (0.0-0.8) K/uL Eos # (Auto) 0.0 (0.0-0.7) K/uL Baso # (Auto) 0.0 (0.0-0.1) K/uL Nucleated RBC % 0.0 /100WBC Nucleated RBCs # 0 K/uL INR ABG pH (7.35-7.45) ABG pCO2 (35-45) mmHG ABG pO2 (75-100) mmHG ABG HCO3 ABG Total CO2 ABG Base Excess Lactate (0.20-2.00) mmol/L Sodium 136 (136-148) mmol/L Potassium 4.0 (3.5-5.1) mmol/L Chloride 101 (98-107) mmol/L Carbon Dioxide 24.6 (21.0-32.0) mmol/L BUN 29 H (7.0-18.0) mg/dL Creatinine 1.3 (0.8-1.3) mg/dL Est Cr Clr Drug Dosing 54.73 mL/min Estimated GFR (MDRD) 54.6 ml/min Glucose 152 H (74-106) mg/dL POC Glucose (60-110) mg/dL Calcium 9.2 (8.5-10.1) mg/dL Total Bilirubin (0.2-1.0) mg/dL AST (15-37) IU/L ALT (14-63) IU/L Alkaline Phosphatase (46-116) U/L Troponin I 0.619 H* (0.000-0.056) ng/mL B-Natriuretic Peptide (<100) PG/ML Total Protein (6.4-8.2) g/dL Albumin (3.4-5.0) g/dL Globulin (2.0-3.5) g/dL Albumin/Globulin Ratio (1.3-2.8) Urine Color Urine Appearance Urine pH (5.0-8.0) Ur Specific [place] (1.001-1.035) Urine Protein (NEGATIVE) mg/dL Urine Glucose (UA) (NEGATIVE) mg/dL Urine Ketones (NEGATIVE) mg/dL Urine Occult Blood (NEGATIVE) Urine Nitrite (NEGATIVE) Urine Bilirubin (NEGATIVE) Urine Urobilinogen (<2.0) EU/dL Ur Leukocyte Esterase (NEGATIVE) Urine RBC (0-2/HPF) Urine WBC (0-5/HPF) Ur Epithelial Cells (NONE-FEW) Urine Bacteria (NEGATIVE) 01/09/18 01/09/18 Range/Units 06:15 08:05 WBC (4.0-11.0) K/uL RBC (4.50-5.90) M/uL Hgb (13.0-17.0) g/dL Hct (38.0-50.0) % MCV (80.0-98.0) fL MCH (27.0-32.0) pg MCHC (31.0-37.0) g/dL RDW Std Deviation (28.0-62.0) fl RDW Coeff of [place] (11.0-15.0) % Plt Count (150-400) K/uL MPV (7.40-12.00) fL Neut % (Auto) (48.0-80.0) % Lymph % (Auto) (16.0-40.0) % [place] % (Auto) (0.0-15.0) % Eos % (Auto) (0.0-7.0) % Baso % (Auto) (0.0-1.5) % Neut # (Auto) (1.4-5.7) K/uL Lymph # (Auto) (0.6-2.4) K/uL [place] # (Auto) (0.0-0.8) K/uL Eos # (Auto) (0.0-0.7) K/uL Baso # (Auto) (0.0-0.1) K/uL Nucleated RBC % /100WBC Nucleated RBCs # K/uL INR ABG pH (7.35-7.45) ABG pCO2 (35-45) mmHG ABG pO2 (75-100) mmHG ABG HCO3 ABG Total CO2 ABG Base Excess Lactate (0.20-2.00) mmol/L Sodium (136-148) mmol/L Potassium (3.5-5.1) mmol/L Chloride (98-107) mmol/L Carbon Dioxide (21.0-32.0) mmol/L BUN (7.0-18.0) mg/dL Creatinine (0.8-1.3) mg/dL Est Cr Clr Drug Dosing mL/min Estimated GFR (MDRD) ml/min Glucose (74-106) mg/dL POC Glucose 133 H 134 H (60-110) mg/dL Calcium (8.5-10.1) mg/dL Total Bilirubin (0.2-1.0) mg/dL AST (15-37) IU/L ALT (14-63) IU/L Alkaline Phosphatase (46-116) U/L Troponin I (0.000-0.056) ng/mL B-Natriuretic Peptide (<100) PG/ML Total Protein (6.4-8.2) g/dL Albumin (3.4-5.0) g/dL Globulin (2.0-3.5) g/dL Albumin/Globulin Ratio (1.3-2.8) Urine Color Urine Appearance Urine pH (5.0-8.0) Ur Specific [place] (1.001-1.035) Urine Protein (NEGATIVE) mg/dL Urine Glucose (UA) (NEGATIVE) mg/dL Urine Ketones (NEGATIVE) mg/dL Urine Occult Blood (NEGATIVE) Urine Nitrite (NEGATIVE) Urine Bilirubin (NEGATIVE) Urine Urobilinogen (<2.0) EU/dL Ur Leukocyte Esterase (NEGATIVE) Urine RBC (0-2/HPF) Urine WBC (0-5/HPF) Ur Epithelial Cells (NONE-FEW) Urine Bacteria (NEGATIVE) Yoan Results Last 24 Hours: Microbiology 01/08/18 20:44 Influenza Type A Antigen Screen - Final Nasopharyngeal Swab NEGATIVE INFLUENZA A VIRUS AG Influenza Type B Antigen Screen - Final NEGATIVE INFLUENZA B VIRUS AG Med Orders - Current: Current Medications Albuterol/Ipratropium (Duoneb 3.0-0.5 Mg/3 Ml) 3 ml NEB Q4HRRT PRN PRN Reason: Shortness Of Breath/wheezing Last Admin: 01/09/18 00:50 Dose: 3 ml Furosemide (Lasix) 80 mg IVPUSH BID@0800,1500 VAN Heparin Sodium (Porcine) (Heparin Sodium) 5,000 units SUBCUT Q8H [facility] Last Admin: 01/09/18 06:53 Dose: 5,000 units Dextrose/Water (Dextrose 5% In Water) 1,000 mls @ 50 mls/hr IV ASDIRECTED VAN Last Admin: 01/09/18 01:25 Dose: 50 mls/hr Insulin Aspart (Novolog) 0 unit SUBCUT TIDAC [facility]; Protocol Last Admin: 01/09/18 08:06 Dose: Not Given Sodium Chloride (Saline Flush) 10 ml FLUSH ASDIRECTED PRN PRN Reason: Keep Vein Open Last Admin: 01/08/18 20:39 Dose: 10 ml Sodium Chloride (Saline Flush) 2.5 ml FLUSH ASDIRECTED PRN PRN Reason: Keep Vein Open Last Admin: 01/08/18 20:37 Dose: 2.5 ml Discontinued Medications Aspirin (Aspirin) 324 mg PO ONETIME ONE Stop: 01/08/18 20:23 Last Admin: 01/08/18 20:37 Dose: 324 mg Dextrose/Water (Dextrose 50% In Water) 50 ml IVPUSH ONETIME ONE Stop: 01/08/18 20:33 Last Admin: 01/08/18 20:39 Dose: 50 ml Dextrose/Water (Dextrose 50% In Water) 50 ml IVPUSH STAT STA Stop: 01/09/18 00:41 Last Admin: 01/09/18 00:50 Dose: 50 ml Furosemide (Lasix) 80 mg IVPUSH NOW ONE Stop: 01/09/18 09:01 Last Admin: 01/09/18 09:12 Dose: Not Given Furosemide (Lasix) 40 mg IVPUSH NOW ONE Stop: 01/09/18 09:01 Last Admin: 01/09/18 09:16 Dose: 40 mg Furosemide (Lasix) 40 mg IVPUSH NOW ONE Stop: 01/09/18 10:38 Last Admin: 01/09/18 10:48 Dose: 40 mg Furosemide (Lasix) 40 mg IVPUSH BID@0800,1500 VAN - Exam Quality Assessment: Supplemental Oxygen Lungs: Crackles, Rales, Rhonchi, Wheezing Cardiovascular: Tachycardia Extremities: Pedal Edema (Bilateral pitting edema) - Problem List Review Problem List Initiated/Reviewed/Updated: Yes - Plan Plan:: 72 yo male admitted with acute hypoxic respiratory and CHF exacerbation Patient responded positively to the IV Lasix, his creatinine function slightly improved and so did his BUN function based on the echocardiogram that was recently done the patient has a heart failure with reduced ejection fraction of 35-40%. Patient will get IV Lasix twice a day 80 mg. Patient is having elevated troponin levels for which we will have cardiology consult and likely this is just troponin leakage. After speaking with the patient's PCP there was possible concern for an anatomical abnormality that may be causing the abnormal breath sounds and upper airway breathing that the patient is having, we shall be doing a CT soft tissue of the neck as well as the chest once results, and further decision shall be made.
--- NOTE | 2018-01-09 13:53 | CR ---
EXAM DATE: 01/08/18 PATIENT'S AGE: 72 Patient: CUONG TSAI Facility: [place], [place] Site . Site : 1945 Study: XRay Chest [id number] 9:00:49 PM Ordering Physician: Olya Shields Final Report: INDICATION: Chest pain. Shortness of breath. TECHNIQUE: Chest 1 view. COMPARISON: None FINDINGS: The cardiac silhouette is enlarged. Mediastinal contour is normal. Pulmonary vasculature is within normal limits. There is right-sided volume loss with elevation of the right hemidiaphragm. Likely mild bibasilar atelectasis. No lobar consolidation. No overt edema. No pneumothorax. No definite pleural effusion. No acute osseous abnormality. There are degenerative changes in the right glenohumeral joint. IMPRESSION: 1. Right-sided volume loss with elevation of the right hemidiaphragm. 2. Enlargement of the cardiac silhouette. 3. Likely bibasilar atelectasis without evidence of lobar consolidation or overt edema. Dictated by Janes Cain MD @ 01/08/2018 9:30:50 PM Dictated by: Janes Cain MD @ 01/08/2018 21:31:19 (Electronic Signature) Report Signed by Proxy. CAL
[2018-01-09] MEDS: Furosemide 40 MG/4 ML VIAL IVPUSH SCH (14:28)
[2018-01-09] MEDS ORDERED: Furosemide 40 MG/4 ML VIAL IVPUSH SCH (15:00)
--- NOTE | 2018-01-09 15:44 | CT ---
EXAMINATION: CT soft tissue neck and chest without contrast HISTORY: Dyspnea COMPARISON: None TECHNIQUE: Axial CT images obtained through the neck and chest without contrast. Coronal and sagittal reconstructions obtained. FINDINGS: The pharyngeal mucosal structures appear symmetric. The larynx appears normal. There is arley rowing of the lower trachea which appears to vary with breathing motion. The parotid and submandibula r glands are unremarkable for noncontrast examination. Mucosal thickening noted within the visualized paranasal sinuses. The mastoid air cells are clear. No bulky cervical lymphadenopathy. Mild carotid artery calcifications. Chest: Scattered groundglass is noted within the lungs most prominent within the right upper lobe and lung bases. No pleural effusion or pneumothorax. The heart is borderline in size without a significa nt pericardial effusion. Mild coronary artery calcifications. No mediastinal lymphadenopathy or hilar fullness. No axillary lymphadenopathy. There is a 9 cm right adrenal myelolipoma. No suspicious osseous abnormalities identified. IMPRESSION: 1. There is tracheal narrowing of approximately 75% with inspiration versus expiration consistent wit h tracheobronchomalacia. 2. Patchy groundglass infiltrate within the lungs bilaterally, most likely an infectious etiology. Fo llow-up following treatment may be beneficial. 3. Large benign right adrenal myelolipoma. 4. Borderline cardiomegaly. 5. Moderate coronary artery calcifications.
[2018-01-09] MEDS ORDERED: Levofloxacin/Dextrose 5%-Water 750 MG in Premix Bag 1 BAG IV ONE (19:48)
[2018-01-09] MEDS ORDERED: cefTRIAXone 1,000 MG in Sodium Chloride 0.9% 50 ML IV SCH (20:00)
[2018-01-09] MEDS: Levofloxacin/Dextrose 5%-Water 750 MG in Premix Bag 1 BAG IV SCH (20:11)
[2018-01-09] MEDS: cefTRIAXone 1 GM in Premix Bag 1 BAG IV SCH (21:57)
[2018-01-10] MEDS: Albuterol/Ipratropium 3.0-0.5 MG/3 ML Neb Soln NEB PRN ×4 (00:21→23:28)
[2018-01-10] MEDS: Dextrose 5% in Water 1,000 ML IV SCH (00:32)
[2018-01-10] MEDS: Insulin Aspart 100 Units/ML 3 ML Pen SUBCUT SCH ×3 (08:11→17:45)
[2018-01-10] MEDS: Heparin Sodium 5,000 Units/ML Vial SUBCUT SCH ×3 (08:15→22:42)
[2018-01-10] MEDS: Furosemide 40 MG/4 ML VIAL IVPUSH SCH ×2 (08:16→17:26)
[2018-01-10] MEDS ORDERED: Magnesium Sulfate/Water 2 GM in Premix Bag 1 BAG IV ONE ×2 (08:54→10:38)
--- NOTE | 2018-01-10 09:04 | CONS ---
DATE OF CONSULTATION: 01/09/2018 DATE OF : 1945 PRIMARY CARE PHYSICIAN: Romel Dc M.D. REASON FOR CONSULTATION: Elevation of troponin and heart failure. HISTORY OF PRESENT ILLNESS: This is a 72-year-old male, who has a history of heart failure, CVA, diabetes, hypertension, hyperlipidemia, history of traumatic brain injury, became disabled for a long period of time, history of heart stent 3 years ago. The patient is poor historian because of being disabled, so the history was obtained from the patient's family, as well as the patient himself. So basically he came into the emergency room because of being short of breath, it was unclear for how long. It seemed to be for a long period of time for a while, like 3-6 months per family report, and he also mentioned that his productive cough has been worse. It not very clear that he also experienced about chest pressure, chest tightness also. However, he mentioned about the soreness of his chest after he has excessive cough. He has some leg swelling but he was not sure how long it has been swelling up. He lives alone. However, his house chores were done by his family members. He does have a history of smoking in the past, but it was unclear whether or not he was heavy smoking or just occasional smoking. He was seen by Dr. Alba, psychology fellow, recently because of being short of breath, and there was some concern of upper airway obstruction, as well as daytime sleepiness, and sleep study was scheduled, as well as echocardiogram was done one day prior to ER visit. Also since he had been here, he was admitted to the hospital initially with impending respiratory failure, possibly from heart failure. He was on a BiPAP. However, right now, he is on nasal cannula with O2 saturation of 94 of 8 L/minute. He seemed to be improved some and currently he was given IV Lasix 80 mg twice a day. He also was given steroids for possible COPD as well. 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 He also noted to have a coronary artery calcification, as well as mild carotid artery calcifications as well. He has significant sleep apnea as well. He also has mild elevation of troponin. It was initially 0.8 and currently trending down to 0.5. He is chest pain-free when I talked to him. REVIEW OF SYSTEMS: Except indicated in the HPI, otherwise has been negative. PAST MEDICAL HISTORY: Including history of heart failure, history of CAD status post PCI, diabetes, hypertension, hyperlipidemia, traumatic brain injury. ALLERGIES: No known drug allergies. FAMILY HISTORY: Noncontributory. PHYSICAL EXAMINATION: VITAL SIGNS: Current blood pressure is 109/73, heart rate of 95, temperature is 36.3, O2 saturation 96% on 8 liters per nasal cannula. HEENT: Mildly pale, mild dry. NECK: JVD positive. HEART: Normal S1, S2. Regular rate and rhythm. No murmur. Rhonchi and bibasilar crackles. ABDOMEN: Soft, nontender. Bowel sounds present. No hepatosplenomegaly. EXTREMITIES: Legs 1+ edema. LABORATORY INVESTIGATION: EKG shows sinus rhythm. I did not appreciate ST abnormalities. Echocardiogram that was done on January 07 show ejection fraction of 35% to 40%. CBC currently WBC 8, hematocrit of 37, hemoglobin 12, and platelets 130,000. Sodium 136, potassium 4, chloride 101, bicarb 24, BUN 29, creatinine 1.3. Troponin currently 0.5. ASSESSMENT AND PLAN: This is a 72-year-old male, who has a history of coronary artery disease, status post PCI, congestive heart failure, severe diabetes, hypertension, hyperlipidemia, traumatic brain injury with respiratory failure, requiring BiPAP, currently weaning down to nasal cannula 8 L/minute, possibly from decompensated LV systolic dysfunction or possibly chronic obstructive pulmonary disease. His BNP is elevated as well at 1669. Showing scattered ground glass in the lungs, most prominent in the right upper and the lung bases. No new pleural effusions, did not show any evidence of emphysema. I would treat him with IV diuretics for decompensated heart failure. He may have some exacerbation of COPD as well; however, this has never been diagnosed. I would like to get the record from his primary care doctor, as well as I would like to get the previous cardiac workup including echocardiogram, angiogram, and stress test in the past. He should be on a baby aspirin at least for his CAD, and regarding his tracheomalacia, he probably needs to be consulted with a special collections librarian but as an outpatient or inpatient, it is up to hospitalist team. He probably needs to be treated for pneumonia as well, especially aspiration pneumonia due to the distribution or infiltration finding on the CT chest in the right upper lobe, as well as lung bases. Currently, he denies chest pain. He probably needs ischemic workup, but because he is chest-pain free, we will do it as an outpatient. I think elevation of troponin most likely from demand ischemia from decompensated heart failure. VIRI / ERICA /[id number]
[2018-01-10] MEDS ORDERED: Digoxin 500 MCG/2 ML Amp IVPUSH ONE (10:20)
--- NOTE | 2018-01-10 10:23 | PCM.PN ---
- General Info Date of Service: 01/10/18 Subjective Update: Patient was seen while sitting on the chair, he appeared better from a respiratory standpoint however he still has clear obstructive type breath sounds. While seeing the patient in the a.m. he became increasingly tachycardic to the point where he converted from normal sinus tachycardia over to atrial fibrillation with a heart rate between 120-145. She did not appear symptomatic and was not bothered by this sudden change in his heart rhythm. - Review of Systems General: Reports: Weakness Pulmonary: Reports: Shortness of Breath, Cough, Sputum, Wheezing - Patient Data Vitals - Most Recent: Last Vital Signs Temp 36.1 C 01/10/18 08:00 Pulse 92 01/09/18 06:46 Resp 25 H 01/10/18 10:00 BP 111/73 01/10/18 10:00 Pulse Ox 94 L 01/10/18 10:00 Weight - Most Recent: 117.934 kg I&O - Last 24 Hours: Intake & Output 01/09/18 01/10/18 01/10/18 22:59 06:59 14:59 Intake Total 1384 984 Output Total 1675 375 Balance -291 609 Lab Results Last 24 Hours: Laboratory Results - last 24 hr 01/09/18 01/09/18 01/09/18 Range/Units 11:08 11:10 17:13 WBC (4.0-11.0) K/uL RBC (4.50-5.90) M/uL Hgb (13.0-17.0) g/dL Hct (38.0-50.0) % MCV (80.0-98.0) fL MCH (27.0-32.0) pg MCHC (31.0-37.0) g/dL RDW Std Deviation (28.0-62.0) fl RDW Coeff of Osvaldo (11.0-15.0) % Plt Count (150-400) K/uL MPV (7.40-12.00) fL Neut % (Auto) (48.0-80.0) % Lymph % (Auto) (16.0-40.0) % [place] % (Auto) (0.0-15.0) % Eos % (Auto) (0.0-7.0) % Baso % (Auto) (0.0-1.5) % Neut # (Auto) (1.4-5.7) K/uL Lymph # (Auto) (0.6-2.4) K/uL [place] # (Auto) (0.0-0.8) K/uL Eos # (Auto) (0.0-0.7) K/uL Baso # (Auto) (0.0-0.1) K/uL Nucleated RBC % /100WBC Nucleated RBCs # K/uL Sodium (136-148) mmol/L Potassium (3.5-5.1) mmol/L Chloride (98-107) mmol/L Carbon Dioxide (21.0-32.0) mmol/L BUN (7.0-18.0) mg/dL Creatinine (0.8-1.3) mg/dL Est Cr Clr Drug Dosing mL/min Estimated GFR (MDRD) ml/min Glucose (74-106) mg/dL POC Glucose 190 H 150 H (60-110) mg/dL Calcium (8.5-10.1) mg/dL Magnesium (1.5-2.0) mg/dL Total Bilirubin (0.2-1.0) mg/dL AST (15-37) IU/L ALT (14-63) IU/L Alkaline Phosphatase (46-116) U/L Troponin I 0.589 H* (0.000-0.056) ng/mL Total Protein (6.4-8.2) g/dL Albumin (3.4-5.0) g/dL Globulin (2.0-3.5) g/dL Albumin/Globulin Ratio (1.3-2.8) 01/10/18 01/10/18 01/10/18 Range/Units 01:49 05:24 05:24 WBC 9.88 (4.0-11.0) K/uL RBC 4.13 L (4.50-5.90) M/uL Hgb 12.1 L (13.0-17.0) g/dL Hct 37.7 L (38.0-50.0) % MCV 91.3 (80.0-98.0) fL MCH 29.3 (27.0-32.0) pg MCHC 32.1 (31.0-37.0) g/dL RDW Std Deviation 50.1 (28.0-62.0) fl RDW Coeff of Osvaldo 15 (11.0-15.0) % Plt Count 134 L (150-400) K/uL MPV 10.60 (7.40-12.00) fL Neut % (Auto) 72.3 (48.0-80.0) % Lymph % (Auto) 13.8 L (16.0-40.0) % [place] % (Auto) 13.3 (0.0-15.0) % Eos % (Auto) 0.0 (0.0-7.0) % Baso % (Auto) 0.6 (0.0-1.5) % Neut # (Auto) 7.2 H (1.4-5.7) K/uL Lymph # (Auto) 1.4 (0.6-2.4) K/uL [place] # (Auto) 1.3 H (0.0-0.8) K/uL Eos # (Auto) 0.0 (0.0-0.7) K/uL Baso # (Auto) 0.1 (0.0-0.1) K/uL Nucleated RBC % 0.0 /100WBC Nucleated RBCs # 0 K/uL Sodium 135 L (136-148) mmol/L Potassium 4.1 (3.5-5.1) mmol/L Chloride 99 (98-107) mmol/L Carbon Dioxide 27.8 (21.0-32.0) mmol/L BUN 30 H (7.0-18.0) mg/dL Creatinine 1.4 H (0.8-1.3) mg/dL Est Cr Clr Drug Dosing 50.82 mL/min Estimated GFR (MDRD) 50.1 ml/min Glucose 159 H (74-106) mg/dL POC Glucose 146 H (60-110) mg/dL Calcium 8.7 (8.5-10.1) mg/dL Magnesium 1.4 L (1.5-2.0) mg/dL Total Bilirubin 1.6 H (0.2-1.0) mg/dL AST 58 H (15-37) IU/L ALT 66 H (14-63) IU/L Alkaline Phosphatase 68 (46-116) U/L Troponin I 0.492 H* (0.000-0.056) ng/mL Total Protein 6.4 (6.4-8.2) g/dL Albumin 3.4 (3.4-5.0) g/dL Globulin 3.0 (2.0-3.5) g/dL Albumin/Globulin Ratio 1.1 L (1.3-2.8) 01/10/18 Range/Units 07:49 WBC (4.0-11.0) K/uL RBC (4.50-5.90) M/uL Hgb (13.0-17.0) g/dL Hct (38.0-50.0) % MCV (80.0-98.0) fL MCH (27.0-32.0) pg MCHC (31.0-37.0) g/dL RDW Std Deviation (28.0-62.0) fl RDW Coeff of Osvaldo (11.0-15.0) % Plt Count (150-400) K/uL MPV (7.40-12.00) fL Neut % (Auto) (48.0-80.0) % Lymph % (Auto) (16.0-40.0) % [place] % (Auto) (0.0-15.0) % Eos % (Auto) (0.0-7.0) % Baso % (Auto) (0.0-1.5) % Neut # (Auto) (1.4-5.7) K/uL Lymph # (Auto) (0.6-2.4) K/uL [place] # (Auto) (0.0-0.8) K/uL Eos # (Auto) (0.0-0.7) K/uL Baso # (Auto) (0.0-0.1) K/uL Nucleated RBC % /100WBC Nucleated RBCs # K/uL Sodium (136-148) mmol/L Potassium (3.5-5.1) mmol/L Chloride (98-107) mmol/L Carbon Dioxide (21.0-32.0) mmol/L BUN (7.0-18.0) mg/dL Creatinine (0.8-1.3) mg/dL Est Cr Clr Drug Dosing mL/min Estimated GFR (MDRD) ml/min Glucose (74-106) mg/dL POC Glucose 158 H (60-110) mg/dL Calcium (8.5-10.1) mg/dL Magnesium (1.5-2.0) mg/dL Total Bilirubin (0.2-1.0) mg/dL AST (15-37) IU/L ALT (14-63) IU/L Alkaline Phosphatase (46-116) U/L Troponin I (0.000-0.056) ng/mL Total Protein (6.4-8.2) g/dL Albumin (3.4-5.0) g/dL Globulin (2.0-3.5) g/dL Albumin/Globulin Ratio (1.3-2.8) Yoan Results Last 24 Hours: Microbiology 01/09/18 20:10 Gram Stain - Preliminary Sputum - Expectorated Med Orders - Current: Current Medications Albuterol/Ipratropium (Duoneb 3.0-0.5 Mg/3 Ml) 3 ml NEB Q4HRRT PRN PRN Reason: Shortness Of Breath/wheezing Last Admin: 01/10/18 00:21 Dose: 3 ml Furosemide (Lasix) 80 mg IVPUSH BID@0800,1500 [facility] Last Admin: 01/10/18 08:16 Dose: 80 mg Heparin Sodium (Porcine) (Heparin Sodium) 5,000 units SUBCUT Q8H [facility] Last Admin: 01/10/18 08:15 Dose: 5,000 units Levofloxacin/Dextrose 750 mg/ (Premix) 150 mls @ 100 mls/hr IV Q24H [facility] Last Admin: 01/09/18 20:11 Dose: 100 mls/hr Ceftriaxone Sodium/Dextrose 1 (gm/ Premix) 50 mls @ 100 mls/hr IV Q24H [facility] Last Admin: 01/09/18 21:57 Dose: 100 mls/hr Magnesium Sulfate 2 gm/ Premix 50 mls @ 25 mls/hr IV ONETIME ONE Stop: 01/10/18 10:53 Last Admin: 01/10/18 09:23 Dose: 50 mls/hr Insulin Aspart (Novolog) 0 unit SUBCUT TIDAC [facility]; Protocol Last Admin: 01/10/18 08:11 Dose: 1 unit Sodium Chloride (Saline Flush) 10 ml FLUSH ASDIRECTED PRN PRN Reason: Keep Vein Open Last Admin: 01/08/18 20:39 Dose: 10 ml Sodium Chloride (Saline Flush) 2.5 ml FLUSH ASDIRECTED PRN PRN Reason: Keep Vein Open Last Admin: 01/08/18 20:37 Dose: 2.5 ml Discontinued Medications Aspirin (Aspirin) 324 mg PO ONETIME ONE Stop: 01/08/18 20:23 Last Admin: 01/08/18 20:37 Dose: 324 mg Dextrose/Water (Dextrose 50% In Water) 50 ml IVPUSH ONETIME ONE Stop: 01/08/18 20:33 Last Admin: 01/08/18 20:39 Dose: 50 ml Dextrose/Water (Dextrose 50% In Water) 50 ml IVPUSH STAT STA Stop: 01/09/18 00:41 Last Admin: 01/09/18 00:50 Dose: 50 ml Furosemide (Lasix) 80 mg IVPUSH NOW ONE Stop: 01/09/18 09:01 Last Admin: 01/09/18 09:12 Dose: Not Given Furosemide (Lasix) 40 mg IVPUSH NOW ONE Stop: 01/09/18 09:01 Last Admin: 01/09/18 09:16 Dose: 40 mg Furosemide (Lasix) 40 mg IVPUSH NOW ONE Stop: 01/09/18 10:38 Last Admin: 01/09/18 10:48 Dose: 40 mg Furosemide (Lasix) 40 mg IVPUSH BID@0800,1500 [facility] Dextrose/Water (Dextrose 5% In Water) 1,000 mls @ 50 mls/hr IV ASDIRECTED [facility] Last Admin: 01/10/18 00:32 Dose: 50 mls/hr - Exam Quality Assessment: Supplemental Oxygen General: Alert, Oriented, Cooperative, Mild Distress Lungs: Rales, Rhonchi, Wheezing Cardiovascular: Irregular Rhythm, Tachycardia GI/Abdominal Exam: Soft Extremities: Pedal Edema - Problem List & Annotations (1) New onset atrial fibrillation SNOMED Code(s): 01339658 Code(s): I48.91 - UNSPECIFIED ATRIAL FIBRILLATION Status: Acute Current Visit: Yes (2) Pneumonia SNOMED Code(s): 463782019 Code(s): J18.9 - PNEUMONIA, UNSPECIFIED ORGANISM Status: Acute Current Visit: Yes (3) Tracheobronchomalacia SNOMED Code(s): 473407003 Code(s): J39.8 - OTHER SPECIFIED DISEASES OF UPPER RESPIRATORY TRACT Status : Acute Current Visit: Yes - Problem List Review Problem List Initiated/Reviewed/Updated: Yes - My Orders Last 24 Hours: My Active Orders 01/09/18 20:10 CULTURE SPUTUM + SMEAR [RM] Routine 01/09/18 20:26 Blood Glucose Check, Bedside [RC] TIDAC 01/09/18 22:00 cefTRIAXone [Rocephin in Dextrose,Iso-Osm 1 GM/50 ML] 1 gm Premix Bag 1 bag IV Q24H 01/10/18 08:54 Magnesium Sulfate/Water [Magnesium Sulfate 2 GM in Water 50 ML] 2 gm Premix Bag 1 bag IV ONETIME 01/10/18 10:20 Digoxin [Lanoxin] 250 mcg IVPUSH ONETIME ONE - Plan Plan:: This is a 72-year-old male that is presenting with symptoms of shortness of breath, productive cough, obstructive breath sounds, bilateral pitting edema, lives on auscultation likely secondary to acute on chronic exacerbation of congestive heart failure with underlying respiratory disorder as well as pneumonia aspiration versus community-acquired. Problems: #1 congestive heart failure: Patient's heart failure is progressively getting better, the patient still has bilateral rales on auscultation of the lungs, he still has bilateral pitting edema extending up to the knee/thigh area, patient is being diuresed with IV Lasix 80 mg twice a day Patient's echocardiogram indicates significant systolic dysfunction with an ejection fraction currently between 35-40% #2. Pneumonia appreciated on imaging patient: Aspiration pneumonia versus community-acquired pneumonia at this point in time we are covering for both anaerobes as well as gram-positive and negative bugs. We will also cover for pseudomonas as this patient due to his finding of tracheobronchomalacia may also present similar to those patients that have cystic fibrosis and should also be covered for pseudomonas coverage. Sputum sample has been obtained Which is growing a number of bacteria, we will continue to wait for differential and neck. Patient does not present with any signs of fever or chills nor does he have an elevated leukocytosis at the present moment. #3. Obstructive breath sounds: Patient more than likely has obstructive sleep apnea which is likely complicated with his tracheobronchomalacia. At this point in time due to his obstructive breath sounds we will be doing chest physiotherapy as well as nasal saline nebs to assist patient's respiratory dysfunction. #4. New onset atrial fibrillation: Patient converted from sinus tachycardia to new onset atrial fibrillation, patient has been given a dose of digoxin 250 mcg. shall continue to watch the patient and see if he reverts back to normal rhythm.
[2018-01-10] MEDS ORDERED: Sodium Chloride 0.9% Inhalation Soln 3 ML Neb INH SCH (12:00)
[2018-01-10] MEDS: Metoprolol Succinate 25 MG Tab.ER PO SCH (14:42)
[2018-01-10] MEDS: Sodium Chloride 0.9% Inhalation Soln 3 ML Neb INH SCH ×3 (14:44→19:51)
[2018-01-10] MEDS: Levofloxacin/Dextrose 5%-Water 750 MG in Premix Bag 1 BAG IV SCH (19:46)
[2018-01-10] MEDS: cefTRIAXone 1 GM in Premix Bag 1 BAG IV SCH (22:03)
[2018-01-11] MEDS: Sodium Chloride 0.9% Inhalation Soln 3 ML Neb INH SCH ×6 (00:19→21:05)
[2018-01-11 05:53] LABS: CHLORIDE,CL 98 mmol/L (98-107); SODIUM,NA 135 mmol/L (136-148)
[2018-01-11] MEDS ORDERED: Sodium Chloride 0.9% Inhalation Soln 3 ML Neb INH SCH (06:30)
[2018-01-11] MEDS: Insulin Aspart 100 Units/ML 3 ML Pen SUBCUT SCH ×3 (06:33→17:51)
[2018-01-11] MEDS: Furosemide 40 MG/4 ML VIAL IVPUSH SCH ×2 (08:00→15:59)
[2018-01-11] MEDS: Metoprolol Succinate 25 MG Tab.ER PO SCH (08:01)
[2018-01-11] MEDS: Heparin Sodium 5,000 Units/ML Vial SUBCUT SCH ×2 (08:01→15:59)
[2018-01-11] MEDS: Albuterol/Ipratropium 3.0-0.5 MG/3 ML Neb Soln NEB PRN ×2 (12:35→16:50)
[2018-01-11] MEDS ORDERED: Aspirin 81 MG Tab.Chew PO SCH (17:15)
--- NOTE | 2018-01-11 18:08 | PCM.PN ---
- General Info Date of Service: 01/11/18 Admission Dx/Problem (Free Text): 72M traumatic brain injury longtime ago, with CAD PCI LAD PCI 1995, here with SOB, upper respiratory obstruction with tracheobronchomalacia, right PNA with decompensated systolic HF. EF 35-40% APfib during admission. Subjective Update: he required less O2, today 3 LPM from 8 LPM, still had stridor from bronchomalacia. Remained sinus, BP stable, he had good urine output with lasix 80 IV BID - Review of Systems General: Reports: Weakness HEENT: Reports: No Symptoms Pulmonary: Reports: Cough, Sputum, Wheezing Cardiovascular: Reports: No Symptoms Gastrointestinal: Reports: No Symptoms Genitourinary: Reports: No Symptoms Musculoskeletal: Reports: No Symptoms Skin: Reports: No Symptoms Neurological: Reports: No Symptoms, Change in Speech. Denies: Paresthesia - Patient Data Vitals - Most Recent: Last Vital Signs Temp 36.4 C 01/11/18 16:00 Pulse 83 01/11/18 08:01 Resp 19 01/11/18 17:00 BP 103/64 01/11/18 17:00 Pulse Ox 93 L 01/11/18 17:00 Weight - Most Recent: 113.8 kg I&O - Last 24 Hours: Intake & Output 01/11/18 01/11/18 01/11/18 06:59 14:59 22:59 Intake Total 450 600 Output Total 1075 1050 Balance -625 -450 Lab Results Last 24 Hours: Laboratory Results - last 24 hr 01/11/18 01/11/18 01/11/18 Range/Units 04:35 04:35 06:24 WBC 7.49 (4.0-11.0) K/uL RBC 4.17 L (4.50-5.90) M/uL Hgb 11.9 L (13.0-17.0) g/dL Hct 37.4 L (38.0-50.0) % MCV 89.7 (80.0-98.0) fL MCH 28.5 (27.0-32.0) pg MCHC 31.8 (31.0-37.0) g/dL RDW Std Deviation 48.1 (28.0-62.0) fl RDW Coeff of Osvaldo 15 (11.0-15.0) % Plt Count 149 L (150-400) K/uL MPV 10.80 (7.40-12.00) fL Add Manual Diff YES Neutrophils % (Manual) 76 (48.0-80.0) % Band Neutrophils % 2 % Lymphocytes % (Manual) 20 (16.0-40.0) % Monocytes % (Manual) 2 (0.0-15.0) % Nucleated RBC % 0.0 /100WBC Absolute Seg Neuts 5.7 (1.4-5.7) Band Neutrophils # 0.1 Lymphocytes # (Manual) 1.5 (0.6-2.4) Monocytes # (Manual) 0.1 (0.0-0.8) Nucleated RBCs # 0 K/uL Sodium 135 L (136-148) mmol/L Potassium 3.7 (3.5-5.1) mmol/L Chloride 98 (98-107) mmol/L Carbon Dioxide 26.9 (21.0-32.0) mmol/L BUN 31 H (7.0-18.0) mg/dL Creatinine 1.1 (0.8-1.3) mg/dL Est Cr Clr Drug Dosing 64.68 mL/min Estimated GFR (MDRD) > 60.0 ml/min Glucose 150 H (74-106) mg/dL POC Glucose 138 H (60-110) mg/dL Calcium 8.7 (8.5-10.1) mg/dL Phosphorus 3.4 (2.6-4.7) mg/dL Magnesium 3.0 H (1.5-2.0) mg/dL Total Bilirubin 1.6 H (0.2-1.0) mg/dL AST 44 H (15-37) IU/L ALT 58 (14-63) IU/L Alkaline Phosphatase 79 (46-116) U/L Total Protein 6.5 (6.4-8.2) g/dL Albumin 3.3 L (3.4-5.0) g/dL Globulin 3.2 (2.0-3.5) g/dL Albumin/Globulin Ratio 1.0 L (1.3-2.8) 01/11/18 Range/Units 11:54 WBC (4.0-11.0) K/uL RBC (4.50-5.90) M/uL Hgb (13.0-17.0) g/dL Hct (38.0-50.0) % MCV (80.0-98.0) fL MCH (27.0-32.0) pg MCHC (31.0-37.0) g/dL RDW Std Deviation (28.0-62.0) fl RDW Coeff of Osvaldo (11.0-15.0) % Plt Count (150-400) K/uL MPV (7.40-12.00) fL Add Manual Diff Neutrophils % (Manual) (48.0-80.0) % Band Neutrophils % % Lymphocytes % (Manual) (16.0-40.0) % Monocytes % (Manual) (0.0-15.0) % Nucleated RBC % /100WBC Absolute Seg Neuts (1.4-5.7) Band Neutrophils # Lymphocytes # (Manual) (0.6-2.4) Monocytes # (Manual) (0.0-0.8) Nucleated RBCs # K/uL Sodium (136-148) mmol/L Potassium (3.5-5.1) mmol/L Chloride (98-107) mmol/L Carbon Dioxide (21.0-32.0) mmol/L BUN (7.0-18.0) mg/dL Creatinine (0.8-1.3) mg/dL Est Cr Clr Drug Dosing mL/min Estimated GFR (MDRD) ml/min Glucose (74-106) mg/dL POC Glucose 173 H (60-110) mg/dL Calcium (8.5-10.1) mg/dL Phosphorus (2.6-4.7) mg/dL Magnesium (1.5-2.0) mg/dL Total Bilirubin (0.2-1.0) mg/dL AST (15-37) IU/L ALT (14-63) IU/L Alkaline Phosphatase (46-116) U/L Total Protein (6.4-8.2) g/dL Albumin (3.4-5.0) g/dL Globulin (2.0-3.5) g/dL Albumin/Globulin Ratio (1.3-2.8) Yoan Results Last 24 Hours: Microbiology 01/09/18 20:10 Gram Stain - Final Sputum - Expectorated Sputum Culture - Final Normal Respiratory Adri YEAST Med Orders - Current: Current Medications Albuterol/Ipratropium (Duoneb 3.0-0.5 Mg/3 Ml) 3 ml NEB Q4HRRT PRN PRN Reason: Shortness Of Breath/wheezing Last Admin: 01/11/18 16:50 Dose: 3 ml Apixaban (Eliquis) 5 mg PO BID [facility] Furosemide (Lasix) 80 mg IVPUSH BID@0800,1500 [facility] Last Admin: 01/11/18 15:59 Dose: 80 mg Levofloxacin/Dextrose 750 mg/ (Premix) 150 mls @ 100 mls/hr IV Q24H [facility] Last Admin: 01/10/18 19:46 Dose: 100 mls/hr Ceftriaxone Sodium/Dextrose 1 (gm/ Premix) 50 mls @ 100 mls/hr IV Q24H [facility] Last Admin: 01/10/18 22:03 Dose: 100 mls/hr Insulin Aspart (Novolog) 0 unit SUBCUT TIDAC [facility]; Protocol Last Admin: 01/11/18 17:51 Dose: 2 unit Lisinopril (Prinivil) 2.5 mg PO ONETIME ONE Stop: 01/11/18 21:01 Metoprolol Succinate (Toprol Xl) 25 mg PO DAILY [facility] Last Admin: 01/11/18 08:01 Dose: 25 mg Sodium Chloride (Saline Flush) 10 ml FLUSH ASDIRECTED PRN PRN Reason: Keep Vein Open Last Admin: 01/08/18 20:39 Dose: 10 ml Sodium Chloride (Saline Flush) 2.5 ml FLUSH ASDIRECTED PRN PRN Reason: Keep Vein Open Last Admin: 01/08/18 20:37 Dose: 2.5 ml Sodium Chloride (Sodium Chloride 0.9%) 3 ml INH Q4HRRT [facility] Last Admin: 01/11/18 14:25 Dose: 3 ml Discontinued Medications Aspirin (Aspirin) 324 mg PO ONETIME ONE Stop: 01/08/18 20:23 Last Admin: 01/08/18 20:37 Dose: 324 mg Aspirin (Aspirin) 81 mg PO DAILY [facility] Last Admin: 01/11/18 17:32 Dose: Not Given Dextrose/Water (Dextrose 50% In Water) 50 ml IVPUSH ONETIME ONE Stop: 01/08/18 20:33 Last Admin: 01/08/18 20:39 Dose: 50 ml Dextrose/Water (Dextrose 50% In Water) 50 ml IVPUSH STAT STA Stop: 01/09/18 00:41 Last Admin: 01/09/18 00:50 Dose: 50 ml Digoxin (Lanoxin) 250 mcg IVPUSH ONETIME ONE Stop: 01/10/18 10:21 Last Admin: 01/10/18 10:46 Dose: 250 mcg Furosemide (Lasix) 80 mg IVPUSH NOW ONE Stop: 01/09/18 09:01 Last Admin: 01/09/18 09:12 Dose: Not Given Furosemide (Lasix) 40 mg IVPUSH NOW ONE Stop: 01/09/18 09:01 Last Admin: 01/09/18 09:16 Dose: 40 mg Furosemide (Lasix) 40 mg IVPUSH NOW ONE Stop: 01/09/18 10:38 Last Admin: 01/09/18 10:48 Dose: 40 mg Furosemide (Lasix) 40 mg IVPUSH BID@0800,1500 [facility] Heparin Sodium (Porcine) (Heparin Sodium) 5,000 units SUBCUT Q8H [facility] Last Admin: 01/11/18 15:59 Dose: 5,000 units Dextrose/Water (Dextrose 5% In Water) 1,000 mls @ 50 mls/hr IV ASDIRECTED [facility] Last Admin: 01/10/18 00:32 Dose: 50 mls/hr Magnesium Sulfate 2 gm/ Premix 50 mls @ 25 mls/hr IV ONETIME ONE Stop: 01/10/18 10:53 Last Admin: 01/10/18 09:23 Dose: 50 mls/hr Magnesium Sulfate 2 gm/ Premix 50 mls @ 50 mls/hr IV ONETIME ONE Stop: 01/10/18 11:37 Last Admin: 01/10/18 10:47 Dose: 50 mls/hr Sodium Chloride (Sodium Chloride 0.9%) 3 ml INH Q4HR [facility] Last Admin: 01/10/18 11:28 Dose: 3 ml Sodium Chloride (Sodium Chloride 0.9%) 3 ml INH Q4HR [facility] Last Admin: 01/11/18 03:34 Dose: 3 ml Sodium Chloride (Sodium Chloride 0.9%) 3 ml INH Q4H [facility] - Exam General: Alert, Oriented Neck: JVD Lungs: Rales, Rhonchi Cardiovascular: Regular Rate, Regular Rhythm GI/Abdominal Exam: Normal Bowel Sounds, Soft, Non-Tender Extremities: Pedal Edema EKG INTERPRETATION Rhythm: NSR - Problem List Review Problem List Initiated/Reviewed/Updated: Yes - My Orders Last 24 Hours: My Active Orders 01/11/18 21:00 Lisinopril [Prinivil] 2.5 mg PO ONETIME ONE - Plan Plan:: 72M traumatic brain injury longtime ago, with CAD PCI LAD PCI 1995, here with SOB, upper respiratory obstruction with tracheobronchomalacia, right PNA with decompensated systolic HF. EF 35-40% APfib during admission. 1. Resp: combination of PNA suspicious for aspiration. Talked his brother AMRIK, he did have prolong intubation like 3 months when he had traumatic brain injury when he was young. The stridor sound, abnormal breathing seemed to be noticed for a while. He lives alone at home, not quite certain about compliant. He has been treated with Abx, with chest physical therapy. - Abx for PNA per hospitalist 2. CVS: we only have reports from [place] when he had PCI done in 1995 with stent. His Trop was elevated but it was not peaking, and it was trending down, the initial trop was the highest 0.8. Echo showed decline LVEF 35-40% the RWMA was difficult to assess due to poor quality, with mild MR, trace AR. He seemed to tolerate with toprol XL 25, will add lisinopril 2.5 tonight. he had one run of afib and it was converted, [id number] at least 5, will start him on NOAC. Due to history with traumatic brain injury, will hold off ASA. He will need ischemic possibly cath. Patient's POA preferred him roxanne scheduled to see acoustical engineer in [place]. It seemed patient's POA would like aggressive management. - NOAC for afib - toprol XL 25, lisinopril 2.5 - continue lasix 80 IV BID
[2018-01-11] MEDS ORDERED: Lisinopril 5 MG Tab PO ONE (21:00)
[2018-01-11] MEDS: Apixaban 5 MG Tab PO SCH (21:01)
[2018-01-11] MEDS: Levofloxacin/Dextrose 5%-Water 750 MG in Premix Bag 1 BAG IV SCH (21:01)
--- NOTE | 2018-01-11 21:49 | PCM.PN ---
- General Info Date of Service: 01/11/18 Subjective Update: Patient from a respiratory standpoint does appear to be doing much better, it appears that the Lasix are being effective as he has less rales and rhonchi, he still has very audible breath sounds or nausea or vomiting nor diarrhea or constipation at the present moment. - Patient Data Vitals - Most Recent: Last Vital Signs Temp 36.3 C 01/11/18 20:00 Pulse 83 01/11/18 08:01 Resp 24 H 01/11/18 21:00 BP 195/54 H 01/11/18 21:01 Pulse Ox 97 01/11/18 21:00 Weight - Most Recent: 113.8 kg I&O - Last 24 Hours: Intake & Output 01/11/18 01/11/18 01/11/18 06:59 14:59 22:59 Intake Total 450 600 Output Total 1075 1050 Balance -625 -450 Lab Results Last 24 Hours: Laboratory Results - last 24 hr 01/11/18 01/11/18 01/11/18 Range/Units 04:35 04:35 06:24 WBC 7.49 (4.0-11.0) K/uL RBC 4.17 L (4.50-5.90) M/uL Hgb 11.9 L (13.0-17.0) g/dL Hct 37.4 L (38.0-50.0) % MCV 89.7 (80.0-98.0) fL MCH 28.5 (27.0-32.0) pg MCHC 31.8 (31.0-37.0) g/dL RDW Std Deviation 48.1 (28.0-62.0) fl RDW Coeff of Osvaldo 15 (11.0-15.0) % Plt Count 149 L (150-400) K/uL MPV 10.80 (7.40-12.00) fL Add Manual Diff YES Neutrophils % (Manual) 76 (48.0-80.0) % Band Neutrophils % 2 % Lymphocytes % (Manual) 20 (16.0-40.0) % Monocytes % (Manual) 2 (0.0-15.0) % Nucleated RBC % 0.0 /100WBC Absolute Seg Neuts 5.7 (1.4-5.7) Band Neutrophils # 0.1 Lymphocytes # (Manual) 1.5 (0.6-2.4) Monocytes # (Manual) 0.1 (0.0-0.8) Nucleated RBCs # 0 K/uL Sodium 135 L (136-148) mmol/L Potassium 3.7 (3.5-5.1) mmol/L Chloride 98 (98-107) mmol/L Carbon Dioxide 26.9 (21.0-32.0) mmol/L BUN 31 H (7.0-18.0) mg/dL Creatinine 1.1 (0.8-1.3) mg/dL Est Cr Clr Drug Dosing 64.68 mL/min Estimated GFR (MDRD) > 60.0 ml/min Glucose 150 H (74-106) mg/dL POC Glucose 138 H (60-110) mg/dL Calcium 8.7 (8.5-10.1) mg/dL Phosphorus 3.4 (2.6-4.7) mg/dL Magnesium 3.0 H (1.5-2.0) mg/dL Total Bilirubin 1.6 H (0.2-1.0) mg/dL AST 44 H (15-37) IU/L ALT 58 (14-63) IU/L Alkaline Phosphatase 79 (46-116) U/L Total Protein 6.5 (6.4-8.2) g/dL Albumin 3.3 L (3.4-5.0) g/dL Globulin 3.2 (2.0-3.5) g/dL Albumin/Globulin Ratio 1.0 L (1.3-2.8) 01/11/18 Range/Units 11:54 WBC (4.0-11.0) K/uL RBC (4.50-5.90) M/uL Hgb (13.0-17.0) g/dL Hct (38.0-50.0) % MCV (80.0-98.0) fL MCH (27.0-32.0) pg MCHC (31.0-37.0) g/dL RDW Std Deviation (28.0-62.0) fl RDW Coeff of Osvaldo (11.0-15.0) % Plt Count (150-400) K/uL MPV (7.40-12.00) fL Add Manual Diff Neutrophils % (Manual) (48.0-80.0) % Band Neutrophils % % Lymphocytes % (Manual) (16.0-40.0) % Monocytes % (Manual) (0.0-15.0) % Nucleated RBC % /100WBC Absolute Seg Neuts (1.4-5.7) Band Neutrophils # Lymphocytes # (Manual) (0.6-2.4) Monocytes # (Manual) (0.0-0.8) Nucleated RBCs # K/uL Sodium (136-148) mmol/L Potassium (3.5-5.1) mmol/L Chloride (98-107) mmol/L Carbon Dioxide (21.0-32.0) mmol/L BUN (7.0-18.0) mg/dL Creatinine (0.8-1.3) mg/dL Est Cr Clr Drug Dosing mL/min Estimated GFR (MDRD) ml/min Glucose (74-106) mg/dL POC Glucose 173 H (60-110) mg/dL Calcium (8.5-10.1) mg/dL Phosphorus (2.6-4.7) mg/dL Magnesium (1.5-2.0) mg/dL Total Bilirubin (0.2-1.0) mg/dL AST (15-37) IU/L ALT (14-63) IU/L Alkaline Phosphatase (46-116) U/L Total Protein (6.4-8.2) g/dL Albumin (3.4-5.0) g/dL Globulin (2.0-3.5) g/dL Albumin/Globulin Ratio (1.3-2.8) Yoan Results Last 24 Hours: Microbiology 01/09/18 20:10 Gram Stain - Final Sputum - Expectorated Sputum Culture - Final Normal Respiratory Angelica YEAST Med Orders - Current: Current Medications Albuterol/Ipratropium (Duoneb 3.0-0.5 Mg/3 Ml) 3 ml NEB Q4HRRT PRN PRN Reason: Shortness Of Breath/wheezing Last Admin: 01/11/18 16:50 Dose: 3 ml Apixaban (Eliquis) 5 mg PO BID [facility] Last Admin: 01/11/18 21:01 Dose: 5 mg Furosemide (Lasix) 80 mg IVPUSH BID@0800,1500 [facility] Last Admin: 01/11/18 15:59 Dose: 80 mg Levofloxacin/Dextrose 750 mg/ (Premix) 150 mls @ 100 mls/hr IV Q24H [facility] Last Admin: 01/11/18 21:01 Dose: 100 mls/hr Ceftriaxone Sodium/Dextrose 1 (gm/ Premix) 50 mls @ 100 mls/hr IV Q24H [facility] Last Admin: 01/10/18 22:03 Dose: 100 mls/hr Insulin Aspart (Novolog) 0 unit SUBCUT TIDAC [facility]; Protocol Last Admin: 01/11/18 17:51 Dose: 2 unit Metoprolol Succinate (Toprol Xl) 25 mg PO DAILY [facility] Last Admin: 01/11/18 08:01 Dose: 25 mg Sodium Chloride (Saline Flush) 10 ml FLUSH ASDIRECTED PRN PRN Reason: Keep Vein Open Last Admin: 01/08/18 20:39 Dose: 10 ml Sodium Chloride (Saline Flush) 2.5 ml FLUSH ASDIRECTED PRN PRN Reason: Keep Vein Open Last Admin: 01/08/18 20:37 Dose: 2.5 ml Sodium Chloride (Sodium Chloride 0.9%) 3 ml INH Q4HRRT [facility] Last Admin: 01/11/18 21:05 Dose: 3 ml Discontinued Medications Aspirin (Aspirin) 324 mg PO ONETIME ONE Stop: 01/08/18 20:23 Last Admin: 01/08/18 20:37 Dose: 324 mg Aspirin (Aspirin) 81 mg PO DAILY [facility] Last Admin: 01/11/18 17:32 Dose: Not Given Dextrose/Water (Dextrose 50% In Water) 50 ml IVPUSH ONETIME ONE Stop: 01/08/18 20:33 Last Admin: 01/08/18 20:39 Dose: 50 ml Dextrose/Water (Dextrose 50% In Water) 50 ml IVPUSH STAT STA Stop: 01/09/18 00:41 Last Admin: 01/09/18 00:50 Dose: 50 ml Digoxin (Lanoxin) 250 mcg IVPUSH ONETIME ONE Stop: 01/10/18 10:21 Last Admin: 01/10/18 10:46 Dose: 250 mcg Furosemide (Lasix) 80 mg IVPUSH NOW ONE Stop: 01/09/18 09:01 Last Admin: 01/09/18 09:12 Dose: Not Given Furosemide (Lasix) 40 mg IVPUSH NOW ONE Stop: 01/09/18 09:01 Last Admin: 01/09/18 09:16 Dose: 40 mg Furosemide (Lasix) 40 mg IVPUSH NOW ONE Stop: 01/09/18 10:38 Last Admin: 01/09/18 10:48 Dose: 40 mg Furosemide (Lasix) 40 mg IVPUSH BID@0800,1500 [facility] Heparin Sodium (Porcine) (Heparin Sodium) 5,000 units SUBCUT Q8H [facility] Last Admin: 01/11/18 15:59 Dose: 5,000 units Dextrose/Water (Dextrose 5% In Water) 1,000 mls @ 50 mls/hr IV ASDIRECTED [facility] Last Admin: 01/10/18 00:32 Dose: 50 mls/hr Magnesium Sulfate 2 gm/ Premix 50 mls @ 25 mls/hr IV ONETIME ONE Stop: 01/10/18 10:53 Last Admin: 01/10/18 09:23 Dose: 50 mls/hr Magnesium Sulfate 2 gm/ Premix 50 mls @ 50 mls/hr IV ONETIME ONE Stop: 01/10/18 11:37 Last Admin: 01/10/18 10:47 Dose: 50 mls/hr Lisinopril (Prinivil) 2.5 mg PO ONETIME ONE Stop: 01/11/18 21:01 Last Admin: 01/11/18 21:01 Dose: 2.5 mg Sodium Chloride (Sodium Chloride 0.9%) 3 ml INH Q4HR [facility] Last Admin: 01/10/18 11:28 Dose: 3 ml Sodium Chloride (Sodium Chloride 0.9%) 3 ml INH Q4HR [facility] Last Admin: 01/11/18 03:34 Dose: 3 ml Sodium Chloride (Sodium Chloride 0.9%) 3 ml INH Q4H [facility] - Exam Quality Assessment: Supplemental Oxygen General: Alert, Oriented, Cooperative, Moderate Distress Lungs: Rales, Rhonchi, Wheezing Cardiovascular: Regular Rate, Regular Rhythm Extremities: Pedal Edema - Problem List & Annotations (1) New onset atrial fibrillation SNOMED Code(s): 14031279 Code(s): I48.91 - UNSPECIFIED ATRIAL FIBRILLATION Status: Acute Current Visit: Yes (2) Pneumonia SNOMED Code(s): 421547003 Code(s): J18.9 - PNEUMONIA, UNSPECIFIED ORGANISM Status: Acute Current Visit: Yes (3) Tracheobronchomalacia SNOMED Code(s): 360011595 Code(s): J39.8 - OTHER SPECIFIED DISEASES OF UPPER RESPIRATORY TRACT Status : Acute Current Visit: Yes - Problem List Review Problem List Initiated/Reviewed/Updated: Yes - My Orders Last 24 Hours: My Active Orders 01/11/18 21:00 Apixaban [Eliquis] 5 mg PO BID 01/12/18 05:11 CBC WITH AUTO DIFF [HEME] AM COMPREHENSIVE METABOLIC PN,CMP [CHEM] AM 01/13/18 05:11 CBC WITH AUTO DIFF [HEME] AM COMPREHENSIVE METABOLIC PN,CMP [CHEM] AM - Plan Plan:: 72M traumatic brain injury longtime ago, with CAD PCI LAD PCI 1995, here with SOB, upper respiratory obstruction with tracheobronchomalacia, right PNA with decompensated systolic HF. EF 35-40% APfib during admission. 1. Resp: combination of PNA suspicious for aspiration, however sputum culture is back with normal mixed angelica. Patient has tracheobronchomalacia shall get in touch with eICU to see what their recommendations are as far as further management. - Abx for PNA per hospitalist 2. Congestive heart failure, patient to continue with IV Lasix 80 mg twice a day , spoke with cardiology who would like the patient to also be anticoagulated shall be on 5 mg twice a day. - NOAC for afib - toprol XL 25, lisinopril 2.5 - continue lasix 80 IV BID
[2018-01-11] MEDS: cefTRIAXone 1 GM in Premix Bag 1 BAG IV SCH (22:57)
[2018-01-12] MEDS: Sodium Chloride 0.9% Inhalation Soln 3 ML Neb INH SCH ×5 (02:00→19:36)
[2018-01-12] MEDS: Albuterol/Ipratropium 3.0-0.5 MG/3 ML Neb Soln NEB PRN (06:25)
[2018-01-12] MEDS: Insulin Aspart 100 Units/ML 3 ML Pen SUBCUT SCH ×3 (06:52→16:55)
[2018-01-12] MEDS: Furosemide 40 MG/4 ML VIAL IVPUSH SCH (08:00)
[2018-01-12] MEDS: Metoprolol Succinate 25 MG Tab.ER PO SCH (08:00)
[2018-01-12] MEDS: Apixaban 5 MG Tab PO SCH ×2 (08:00→20:40)
--- NOTE | 2018-01-12 08:59 | PCM.PN ---
- General Info Date of Service: 01/12/18 Subjective Update: Patient is doing allot better then on admission. No longer having audible rales , still having the sputum congestion/retention however this is secondary to his trachiobronchiomalcia. no fevers, chills, N/V/D/C. - Patient Data Vitals - Most Recent: Last Vital Signs Temp 36.1 C 01/12/18 08:00 Pulse 75 01/12/18 08:00 Resp 20 01/12/18 08:00 BP 100/52 L 01/12/18 08:00 Pulse Ox 92 L 01/12/18 08:00 Weight - Most Recent: 113.8 kg I&O - Last 24 Hours: Intake & Output 01/11/18 01/12/18 01/12/18 22:59 06:59 14:59 Intake Total 600 1000 Output Total 1050 1350 400 Balance -450 -350 -400 Lab Results Last 24 Hours: Laboratory Results - last 24 hr 01/11/18 01/11/18 01/12/18 Range/Units 11:54 17:48 04:36 WBC (4.0-11.0) K/uL RBC (4.50-5.90) M/uL Hgb (13.0-17.0) g/dL Hct (38.0-50.0) % MCV (80.0-98.0) fL MCH (27.0-32.0) pg MCHC (31.0-37.0) g/dL RDW Std Deviation (28.0-62.0) fl RDW Coeff of Osvaldo (11.0-15.0) % Plt Count (150-400) K/uL MPV (7.40-12.00) fL Neut % (Auto) (48.0-80.0) % Lymph % (Auto) (16.0-40.0) % [place] % (Auto) (0.0-15.0) % Eos % (Auto) (0.0-7.0) % Baso % (Auto) (0.0-1.5) % Neut # (Auto) (1.4-5.7) K/uL Lymph # (Auto) (0.6-2.4) K/uL [place] # (Auto) (0.0-0.8) K/uL Eos # (Auto) (0.0-0.7) K/uL Baso # (Auto) (0.0-0.1) K/uL Nucleated RBC % /100WBC Nucleated RBCs # K/uL Sodium (136-148) mmol/L Potassium (3.5-5.1) mmol/L Chloride (98-107) mmol/L Carbon Dioxide (21.0-32.0) mmol/L BUN (7.0-18.0) mg/dL Creatinine (0.8-1.3) mg/dL Est Cr Clr Drug Dosing mL/min Estimated GFR (MDRD) ml/min Glucose (74-106) mg/dL POC Glucose 173 H 213 H (60-110) mg/dL Calcium (8.5-10.1) mg/dL Magnesium 1.6 (1.5-2.0) mg/dL Total Bilirubin (0.2-1.0) mg/dL AST (15-37) IU/L ALT (14-63) IU/L Alkaline Phosphatase (46-116) U/L Total Protein (6.4-8.2) g/dL Albumin (3.4-5.0) g/dL Globulin (2.0-3.5) g/dL Albumin/Globulin Ratio (1.3-2.8) 01/12/18 01/12/18 01/12/18 Range/Units 04:38 04:38 06:48 WBC 6.83 (4.0-11.0) K/uL RBC 4.31 L (4.50-5.90) M/uL Hgb 12.3 L (13.0-17.0) g/dL Hct 38.5 (38.0-50.0) % MCV 89.3 (80.0-98.0) fL MCH 28.5 (27.0-32.0) pg MCHC 31.9 (31.0-37.0) g/dL RDW Std Deviation 47.4 (28.0-62.0) fl RDW Coeff of Osvalod 15 (11.0-15.0) % Plt Count 154 (150-400) K/uL MPV 10.60 (7.40-12.00) fL Neut % (Auto) 67.8 (48.0-80.0) % Lymph % (Auto) 18.4 (16.0-40.0) % [place] % (Auto) 13.6 (0.0-15.0) % Eos % (Auto) 0.1 (0.0-7.0) % Baso % (Auto) 0.1 (0.0-1.5) % Neut # (Auto) 4.6 (1.4-5.7) K/uL Lymph # (Auto) 1.3 (0.6-2.4) K/uL [place] # (Auto) 0.9 H (0.0-0.8) K/uL Eos # (Auto) 0.0 (0.0-0.7) K/uL Baso # (Auto) 0.0 (0.0-0.1) K/uL Nucleated RBC % 0.0 /100WBC Nucleated RBCs # 0 K/uL Sodium 138 (136-148) mmol/L Potassium 3.4 L (3.5-5.1) mmol/L Chloride 99 (98-107) mmol/L Carbon Dioxide 29.1 (21.0-32.0) mmol/L BUN 32 H (7.0-18.0) mg/dL Creatinine 1.2 (0.8-1.3) mg/dL Est Cr Clr Drug Dosing 59.29 mL/min Estimated GFR (MDRD) 59.9 ml/min Glucose 132 H (74-106) mg/dL POC Glucose 126 H (60-110) mg/dL Calcium 8.8 (8.5-10.1) mg/dL Magnesium (1.5-2.0) mg/dL Total Bilirubin 1.6 H (0.2-1.0) mg/dL AST 56 H (15-37) IU/L ALT 77 H (14-63) IU/L Alkaline Phosphatase 94 (46-116) U/L Total Protein 6.4 (6.4-8.2) g/dL Albumin 3.2 L (3.4-5.0) g/dL Globulin 3.2 (2.0-3.5) g/dL Albumin/Globulin Ratio 1.0 L (1.3-2.8) Yoan Results Last 24 Hours: Microbiology 01/09/18 20:10 Gram Stain - Final Sputum - Expectorated Sputum Culture - Final Normal Respiratory Angelica YEAST Med Orders - Current: Current Medications Albuterol/Ipratropium (Duoneb 3.0-0.5 Mg/3 Ml) 3 ml NEB Q4HRRT PRN PRN Reason: Shortness Of Breath/wheezing Last Admin: 01/12/18 06:25 Dose: 3 ml Apixaban (Eliquis) 5 mg PO BID [facility] Last Admin: 01/12/18 08:00 Dose: 5 mg Furosemide (Lasix) 80 mg IVPUSH BID@0800,1500 [facility] Last Admin: 01/12/18 08:00 Dose: 80 mg Levofloxacin/Dextrose 750 mg/ (Premix) 150 mls @ 100 mls/hr IV Q24H [facility] Last Admin: 01/11/18 21:01 Dose: 100 mls/hr Ceftriaxone Sodium/Dextrose 1 (gm/ Premix) 50 mls @ 100 mls/hr IV Q24H [facility] Last Admin: 01/11/18 22:57 Dose: 100 mls/hr Insulin Aspart (Novolog) 0 unit SUBCUT TIDAC [facility]; Protocol Last Admin: 01/12/18 06:52 Dose: Not Given Metoprolol Succinate (Toprol Xl) 25 mg PO DAILY [facility] Last Admin: 01/12/18 08:00 Dose: 25 mg Sodium Chloride (Saline Flush) 10 ml FLUSH ASDIRECTED PRN PRN Reason: Keep Vein Open Last Admin: 01/08/18 20:39 Dose: 10 ml Sodium Chloride (Saline Flush) 2.5 ml FLUSH ASDIRECTED PRN PRN Reason: Keep Vein Open Last Admin: 01/08/18 20:37 Dose: 2.5 ml Sodium Chloride (Sodium Chloride 0.9%) 3 ml INH Q4HRRT [facility] Last Admin: 01/12/18 06:25 Dose: 3 ml Discontinued Medications Aspirin (Aspirin) 324 mg PO ONETIME ONE Stop: 01/08/18 20:23 Last Admin: 01/08/18 20:37 Dose: 324 mg Aspirin (Aspirin) 81 mg PO DAILY [facility] Last Admin: 01/11/18 17:32 Dose: Not Given Dextrose/Water (Dextrose 50% In Water) 50 ml IVPUSH ONETIME ONE Stop: 01/08/18 20:33 Last Admin: 01/08/18 20:39 Dose: 50 ml Dextrose/Water (Dextrose 50% In Water) 50 ml IVPUSH STAT STA Stop: 01/09/18 00:41 Last Admin: 01/09/18 00:50 Dose: 50 ml Digoxin (Lanoxin) 250 mcg IVPUSH ONETIME ONE Stop: 01/10/18 10:21 Last Admin: 01/10/18 10:46 Dose: 250 mcg Furosemide (Lasix) 80 mg IVPUSH NOW ONE Stop: 01/09/18 09:01 Last Admin: 01/09/18 09:12 Dose: Not Given Furosemide (Lasix) 40 mg IVPUSH NOW ONE Stop: 01/09/18 09:01 Last Admin: 01/09/18 09:16 Dose: 40 mg Furosemide (Lasix) 40 mg IVPUSH NOW ONE Stop: 01/09/18 10:38 Last Admin: 01/09/18 10:48 Dose: 40 mg Furosemide (Lasix) 40 mg IVPUSH BID@0800,1500 [facility] Heparin Sodium (Porcine) (Heparin Sodium) 5,000 units SUBCUT Q8H [facility] Last Admin: 01/11/18 15:59 Dose: 5,000 units Dextrose/Water (Dextrose 5% In Water) 1,000 mls @ 50 mls/hr IV ASDIRECTED [facility] Last Admin: 01/10/18 00:32 Dose: 50 mls/hr Magnesium Sulfate 2 gm/ Premix 50 mls @ 25 mls/hr IV ONETIME ONE Stop: 01/10/18 10:53 Last Admin: 01/10/18 09:23 Dose: 50 mls/hr Magnesium Sulfate 2 gm/ Premix 50 mls @ 50 mls/hr IV ONETIME ONE Stop: 01/10/18 11:37 Last Admin: 01/10/18 10:47 Dose: 50 mls/hr Lisinopril (Prinivil) 2.5 mg PO ONETIME ONE Stop: 01/11/18 21:01 Last Admin: 01/11/18 21:01 Dose: 2.5 mg Sodium Chloride (Sodium Chloride 0.9%) 3 ml INH Q4HR [facility] Last Admin: 01/10/18 11:28 Dose: 3 ml Sodium Chloride (Sodium Chloride 0.9%) 3 ml INH Q4HR [facility] Last Admin: 01/11/18 03:34 Dose: 3 ml Sodium Chloride (Sodium Chloride 0.9%) 3 ml INH Q4H [facility] - Exam Quality Assessment: Supplemental Oxygen General: Alert, Oriented, Cooperative, Mild Distress Lungs: Decreased Breath Sounds, Rales, Rhonchi Cardiovascular: Regular Rhythm, Tachycardia GI/Abdominal Exam: Normal Bowel Sounds Extremities: Pedal Edema - Problem List & Annotations (1) New onset atrial fibrillation SNOMED Code(s): 40829065 Code(s): I48.91 - UNSPECIFIED ATRIAL FIBRILLATION Status: Acute Current Visit: Yes (2) Pneumonia SNOMED Code(s): 565945878 Code(s): J18.9 - PNEUMONIA, UNSPECIFIED ORGANISM Status: Resolved Current Visit: Yes (3) Tracheobronchomalacia SNOMED Code(s): 667225061 Code(s): J39.8 - OTHER SPECIFIED DISEASES OF UPPER RESPIRATORY TRACT Status : Acute Current Visit: Yes - Problem List Review Problem List Initiated/Reviewed/Updated: Yes - My Orders Last 24 Hours: My Active Orders 01/11/18 21:00 Apixaban [Eliquis] 5 mg PO BID 01/13/18 05:11 CBC WITH AUTO DIFF [HEME] AM COMPREHENSIVE METABOLIC PN,CMP [CHEM] AM - Plan Plan:: 72M traumatic brain injury longtime ago, with CAD PCI LAD PCI 1995, here with SOB, upper respiratory obstruction with tracheobronchomalacia, right PNA with decompensated systolic HF. EF 35-40% APfib during admission. 1. Resp: combination of PNA suspicious for aspiration, however sputum culture is back with normal mixed angelica. -With no elevation of his white blood cell count, no organisms growing on his sputum culture decision has been made to discontinue the antibiotics for the patient's suspected pneumonia as we believe that it is now likely resolved Patient has tracheobronchomalacia -The plan for the tracheobronchomalacia is for the patient once discharged to get a slide PFTs, baseline sleep study as this will tell us the degree and the significance as far as the symptomatic aspect of the tracheobronchial malacia. 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 -The goal after getting these baseline without wheezes for the patient to be seen by pulmonary medicine as far as decision for possible interventions including a mesh placement via surgical intervention for the fixation of the tracheobronchomalacia. Other treatment options that can be applied for the patient include CPAP, stenting of the trachea, possible tracheostomy. -I did speak with Dr. Potter with the eICU buyer broker we have on-call who stated that that is the appropriate plan for the patient but in addition one thing that would help even if the patient is declining BiPAP is to be able to put some sort of PEEP into even a facemask so that back in help assist with opening the collapsing trachea that is seen with the tracheobronchomalacia. 2. Congestive heart failure, patient responded very well to the IV Lasix, we are going to transition him over to oral Lasix 80 mg by mouth twice a day. Patient is now been also placed on [place] 5 mg twice a day for anticoagulation. Patient has also been put on lisinopril 2.5mg Dr. Lund she'll make changes to the lisinopril
[2018-01-12] MEDS ORDERED: Potassium Chloride 20 MEQ Tab.ER PO ONE (10:33)
[2018-01-12] MEDS: Furosemide 80 MG Tab PO SCH (13:12)
[2018-01-12] MEDS ORDERED: Sodium Chloride 0.9% Inhalation Soln 3 ML Neb INH SCH (14:15)
[2018-01-12] MEDS ORDERED: Furosemide 40 MG/4 ML VIAL IVPUSH ONE (18:31)
[2018-01-13] MEDS: Sodium Chloride 0.9% Inhalation Soln 3 ML Neb INH SCH ×4 (01:28→17:15)
[2018-01-13 05:46] LABS: CHLORIDE,CL 102 mmol/L (98-107); SODIUM,NA 140 mmol/L (136-148)
[2018-01-13] MEDS: Insulin Aspart 100 Units/ML 3 ML Pen SUBCUT SCH ×3 (06:49→17:31)
[2018-01-13] MEDS: Furosemide 80 MG Tab PO SCH ×2 (08:17→14:01)
[2018-01-13] MEDS: Apixaban 5 MG Tab PO SCH ×2 (08:18→21:37)
[2018-01-13] MEDS: Metoprolol Succinate 25 MG Tab.ER PO SCH (08:18)
--- NOTE | 2018-01-13 08:34 | PCM.PN ---
- General Info Date of Service: 01/13/18 Subjective Update: Patient is stable from a congestive heart failure standpoint, he is now on oral Lasix and is doing well. However from a tracheobronchialmalacia standpoint he is still having very low oxygenation levels when asleep. He still does not like having the BiPAP machine on. Likelihood is that we will not send the patient to [facility] today as there is a concern in regards to his oxygenation dipping, and we would like to encourage the patient to be on BiPAP as this will be extremely beneficial for him. - Patient Data Vitals - Most Recent: Last Vital Signs Temp 36.5 C 01/13/18 08:00 Pulse 88 01/13/18 08:18 Resp 22 H 01/13/18 08:00 BP 94/55 L 01/13/18 08:18 Pulse Ox 94 L 01/13/18 08:00 Weight - Most Recent: 109.1 kg I&O - Last 24 Hours: Intake & Output 01/12/18 01/13/18 01/13/18 22:59 06:59 14:59 Intake Total 960 100 580 Output Total 540 1600 200 Balance 420 -1500 380 Lab Results Last 24 Hours: Laboratory Results - last 24 hr 01/12/18 01/12/18 01/12/18 Range/Units 04:36 12:06 16:54 WBC (4.0-11.0) K/uL RBC (4.50-5.90) M/uL Hgb (13.0-17.0) g/dL Hct (38.0-50.0) % MCV (80.0-98.0) fL MCH (27.0-32.0) pg MCHC (31.0-37.0) g/dL RDW Std Deviation (28.0-62.0) fl RDW Coeff of Osvaldo (11.0-15.0) % Plt Count (150-400) K/uL MPV (7.40-12.00) fL Neut % (Auto) (48.0-80.0) % Lymph % (Auto) (16.0-40.0) % [place] % (Auto) (0.0-15.0) % Eos % (Auto) (0.0-7.0) % Baso % (Auto) (0.0-1.5) % Neut # (Auto) (1.4-5.7) K/uL Lymph # (Auto) (0.6-2.4) K/uL [place] # (Auto) (0.0-0.8) K/uL Eos # (Auto) (0.0-0.7) K/uL Baso # (Auto) (0.0-0.1) K/uL Nucleated RBC % /100WBC Nucleated RBCs # K/uL Sodium (136-148) mmol/L Potassium (3.5-5.1) mmol/L Chloride (98-107) mmol/L Carbon Dioxide (21.0-32.0) mmol/L BUN (7.0-18.0) mg/dL Creatinine (0.8-1.3) mg/dL Est Cr Clr Drug Dosing mL/min Estimated GFR (MDRD) ml/min Glucose (74-106) mg/dL POC Glucose 158 H 172 H (60-110) mg/dL Calcium (8.5-10.1) mg/dL Magnesium 1.6 (1.5-2.0) mg/dL Total Bilirubin (0.2-1.0) mg/dL AST (15-37) IU/L ALT (14-63) IU/L Alkaline Phosphatase (46-116) U/L Total Protein (6.4-8.2) g/dL Albumin (3.4-5.0) g/dL Globulin (2.0-3.5) g/dL Albumin/Globulin Ratio (1.3-2.8) 01/13/18 01/13/18 01/13/18 Range/Units 04:50 04:50 06:47 WBC 5.90 (4.0-11.0) K/uL RBC 4.50 (4.50-5.90) M/uL Hgb 12.8 L (13.0-17.0) g/dL Hct 40.1 (38.0-50.0) % MCV 89.1 (80.0-98.0) fL MCH 28.4 (27.0-32.0) pg MCHC 31.9 (31.0-37.0) g/dL RDW Std Deviation 46.7 (28.0-62.0) fl RDW Coeff of Osvaldo 14 (11.0-15.0) % Plt Count 185 (150-400) K/uL MPV 10.50 (7.40-12.00) fL Neut % (Auto) 66.6 (48.0-80.0) % Lymph % (Auto) 19.3 (16.0-40.0) % [place] % (Auto) 13.4 (0.0-15.0) % Eos % (Auto) 0.5 (0.0-7.0) % Baso % (Auto) 0.2 (0.0-1.5) % Neut # (Auto) 3.9 (1.4-5.7) K/uL Lymph # (Auto) 1.1 (0.6-2.4) K/uL [place] # (Auto) 0.8 (0.0-0.8) K/uL Eos # (Auto) 0.0 (0.0-0.7) K/uL Baso # (Auto) 0.0 (0.0-0.1) K/uL Nucleated RBC % 0.0 /100WBC Nucleated RBCs # 0 K/uL Sodium 140 (136-148) mmol/L Potassium 3.5 (3.5-5.1) mmol/L Chloride 102 (98-107) mmol/L Carbon Dioxide 29.8 (21.0-32.0) mmol/L BUN 32 H (7.0-18.0) mg/dL Creatinine 1.1 (0.8-1.3) mg/dL Est Cr Clr Drug Dosing 64.68 mL/min Estimated GFR (MDRD) > 60.0 ml/min Glucose 166 H (74-106) mg/dL POC Glucose 158 H (60-110) mg/dL Calcium 9.1 (8.5-10.1) mg/dL Magnesium (1.5-2.0) mg/dL Total Bilirubin 1.4 H (0.2-1.0) mg/dL AST 40 H (15-37) IU/L ALT 70 H (14-63) IU/L Alkaline Phosphatase 94 (46-116) U/L Total Protein 6.6 (6.4-8.2) g/dL Albumin 3.1 L (3.4-5.0) g/dL Globulin 3.5 (2.0-3.5) g/dL Albumin/Globulin Ratio 0.9 L (1.3-2.8) Med Orders - Current: Current Medications Albuterol/Ipratropium (Duoneb 3.0-0.5 Mg/3 Ml) 3 ml NEB Q4HRRT PRN PRN Reason: Shortness Of Breath/wheezing Last Admin: 01/12/18 06:25 Dose: 3 ml Apixaban (Eliquis) 5 mg PO BID [facility] Last Admin: 01/13/18 08:18 Dose: 5 mg Furosemide (Lasix) 80 mg PO BIDDIURETIC [facility] Last Admin: 01/13/18 08:17 Dose: 80 mg Insulin Aspart (Novolog) 0 unit SUBCUT TIDAC [facility]; Protocol Last Admin: 01/13/18 06:49 Dose: 1 unit Metoprolol Succinate (Toprol Xl) 25 mg PO DAILY [facility] Last Admin: 01/13/18 08:18 Dose: 25 mg Sodium Chloride (Saline Flush) 10 ml FLUSH ASDIRECTED PRN PRN Reason: Keep Vein Open Last Admin: 01/08/18 20:39 Dose: 10 ml Sodium Chloride (Saline Flush) 2.5 ml FLUSH ASDIRECTED PRN PRN Reason: Keep Vein Open Last Admin: 01/08/18 20:37 Dose: 2.5 ml Sodium Chloride (Sodium Chloride 0.9%) 3 ml INH Q6H [facility] Last Admin: 01/13/18 06:33 Dose: 3 ml Discontinued Medications Aspirin (Aspirin) 324 mg PO ONETIME ONE Stop: 01/08/18 20:23 Last Admin: 01/08/18 20:37 Dose: 324 mg Aspirin (Aspirin) 81 mg PO DAILY [facility] Last Admin: 01/11/18 17:32 Dose: Not Given Dextrose/Water (Dextrose 50% In Water) 50 ml IVPUSH ONETIME ONE Stop: 01/08/18 20:33 Last Admin: 01/08/18 20:39 Dose: 50 ml Dextrose/Water (Dextrose 50% In Water) 50 ml IVPUSH STAT STA Stop: 01/09/18 00:41 Last Admin: 01/09/18 00:50 Dose: 50 ml Digoxin (Lanoxin) 250 mcg IVPUSH ONETIME ONE Stop: 01/10/18 10:21 Last Admin: 01/10/18 10:46 Dose: 250 mcg Furosemide (Lasix) 80 mg IVPUSH NOW ONE Stop: 01/09/18 09:01 Last Admin: 01/09/18 09:12 Dose: Not Given Furosemide (Lasix) 40 mg IVPUSH NOW ONE Stop: 01/09/18 09:01 Last Admin: 01/09/18 09:16 Dose: 40 mg Furosemide (Lasix) 40 mg IVPUSH NOW ONE Stop: 01/09/18 10:38 Last Admin: 01/09/18 10:48 Dose: 40 mg Furosemide (Lasix) 40 mg IVPUSH BID@0800,1500 [facility] Furosemide (Lasix) 80 mg IVPUSH BID@0800,1500 [facility] Last Admin: 01/12/18 08:00 Dose: 80 mg Furosemide (Lasix) 80 mg IVPUSH NOW ONE Stop: 01/12/18 18:32 Last Admin: 01/12/18 18:37 Dose: 80 mg Heparin Sodium (Porcine) (Heparin Sodium) 5,000 units SUBCUT Q8H [facility] Last Admin: 01/11/18 15:59 Dose: 5,000 units Dextrose/Water (Dextrose 5% In Water) 1,000 mls @ 50 mls/hr IV ASDIRECTED [facility] Last Admin: 01/10/18 00:32 Dose: 50 mls/hr Levofloxacin/Dextrose 750 mg/ (Premix) 150 mls @ 100 mls/hr IV Q24H [facility] Last Admin: 01/11/18 21:01 Dose: 100 mls/hr Ceftriaxone Sodium/Dextrose 1 (gm/ Premix) 50 mls @ 100 mls/hr IV Q24H [facility] Last Admin: 01/11/18 22:57 Dose: 100 mls/hr Magnesium Sulfate 2 gm/ Premix 50 mls @ 25 mls/hr IV ONETIME ONE Stop: 01/10/18 10:53 Last Admin: 01/10/18 09:23 Dose: 50 mls/hr Magnesium Sulfate 2 gm/ Premix 50 mls @ 50 mls/hr IV ONETIME ONE Stop: 01/10/18 11:37 Last Admin: 01/10/18 10:47 Dose: 50 mls/hr Lisinopril (Prinivil) 2.5 mg PO ONETIME ONE Stop: 01/11/18 21:01 Last Admin: 01/11/18 21:01 Dose: 2.5 mg Potassium Chloride (Klor-Con M20) 40 meq PO ONETIME ONE Stop: 01/12/18 10:34 Last Admin: 01/12/18 12:10 Dose: 40 meq Sodium Chloride (Sodium Chloride 0.9%) 3 ml INH Q4HR [facility] Last Admin: 01/10/18 11:28 Dose: 3 ml Sodium Chloride (Sodium Chloride 0.9%) 3 ml INH Q4HR [facility] Last Admin: 01/11/18 03:34 Dose: 3 ml Sodium Chloride (Sodium Chloride 0.9%) 3 ml INH Q4H [facility] Sodium Chloride (Sodium Chloride 0.9%) 3 ml INH Q4HRRT [facility] Last Admin: 01/12/18 14:23 Dose: Not Given Sodium Chloride (Sodium Chloride 0.9%) 3 ml INH Q6H [facility] Last Admin: 01/12/18 15:18 Dose: Not Given - Problem List & Annotations (1) New onset atrial fibrillation SNOMED Code(s): 32998646 Code(s): I48.91 - UNSPECIFIED ATRIAL FIBRILLATION Status: Acute Current Visit: Yes (2) Pneumonia SNOMED Code(s): 371525928 Code(s): J18.9 - PNEUMONIA, UNSPECIFIED ORGANISM Status: Resolved Current Visit: Yes (3) Tracheobronchomalacia SNOMED Code(s): 266221407 Code(s): J39.8 - OTHER SPECIFIED DISEASES OF UPPER RESPIRATORY TRACT Status : Acute Current Visit: Yes - Problem List Review Problem List Initiated/Reviewed/Updated: Yes - My Orders Last 24 Hours: My Active Orders 01/12/18 10:40 Communication Order [RC] STAT 01/12/18 12:32 Transfer Patient (Change bed) [ADT] Routine 01/12/18 14:00 Furosemide [Lasix] 80 mg PO BIDDIURETIC - Plan Plan:: 72M traumatic brain injury longtime ago, with CAD PCI LAD PCI 1995, here with SOB, upper respiratory obstruction with tracheobronchomalacia, right PNA with decompensated systolic HF. EF 35-40% APfib during admission. 1. Resp: combination of PNA suspicious for aspiration, however sputum culture is back with normal mixed angelica. -With no elevation of his white blood cell count, no organisms growing on his sputum culture decision has been made to discontinue the antibiotics for the patient's suspected pneumonia as we believe that it is now likely resolved Patient has tracheobronchomalacia -The plan for the tracheobronchomalacia is for the patient once discharged to get a outpatient PFTs, baseline sleep study as this will tell us the degree and the significance as far as the symptomatic aspect of the tracheobronchial malacia. 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 -The goal after getting these baseline without wheezes for the patient to be seen by pulmonary medicine as far as decision for possible interventions including a mesh placement via surgical intervention for the fixation of the tracheobronchomalacia. Other treatment options that can be applied for the patient include CPAP, stenting of the trachea, possible tracheostomy. -[facility] on[facility] who stated that that is the appropriate plan for the patient but in addition one thing that would help even if the patient is declining BiPAP is to be able to put some sort of PEEP into even a facemask so that back in help assist with opening the collapsing trachea that is seen with the tracheobronchomalacia. -After speaking with the patient in the a.m. today on 01/13/2018 we shall not be discharging the patient [place] home, instead we are going to try to have the patient use the BiPAP machine and get use to it so that we can get an appropriate intervention in place prior to him being discharged over to [place]. The reason behind this as the patient is going to benefit from CPAP however up until his obstructive sleep apnea is not fully assessed by sleep study he will not be able to get a CPAP machine. As such she is going to need to be on a BiPAP machine up until he gets that sleep study done. 2. Congestive heart failure, patient responded very well to the IV Lasix, we are going to transition him over to oral Lasix 80 mg by mouth twice a day. Patient is now been also placed on Eliquis 5 mg twice a day for anticoagulation. -Per Dr. Lund; patient to get oral Lasix 80 mg twice a day, metoprolol succinate 25 mg in the a.m., lisinopril 2.5 mg at nighttime. -Follow up appointment is being made with Dr. Jane in [place] for cardiology. Anticipated discharge on 01/23/2018
--- NOTE | 2018-01-13 12:07 | PCM.PN ---
- General Info Date of Service: 01/13/18 Admission Dx/Problem (Free Text): 72M traumatic brain injury longtime ago, with CAD PCI LAD PCI 1995, here with SOB, upper respiratory obstruction with tracheobronchomalacia, right PNA with decompensated systolic HF. EF 35-40% APfib during admission. Subjective Update: he felt better still needed O2, received PO lasix, oral fluid restriction < 1500 - Review of Systems Pulmonary: Reports: Shortness of Breath - Patient Data Vitals - Most Recent: Last Vital Signs Temp 36.5 C 01/13/18 08:00 Pulse 88 01/13/18 08:18 Resp 22 H 01/13/18 08:00 BP 94/55 L 01/13/18 08:18 Pulse Ox 94 L 01/13/18 08:00 Weight - Most Recent: 109.1 kg I&O - Last 24 Hours: Intake & Output 01/12/18 01/13/18 01/13/18 22:59 06:59 14:59 Intake Total 960 100 580 Output Total 540 1600 200 Balance 420 -1500 380 Lab Results Last 24 Hours: Laboratory Results - last 24 hr 01/12/18 01/12/18 01/13/18 Range/Units 12:06 16:54 04:50 WBC 5.90 (4.0-11.0) K/uL RBC 4.50 (4.50-5.90) M/uL Hgb 12.8 L (13.0-17.0) g/dL Hct 40.1 (38.0-50.0) % MCV 89.1 (80.0-98.0) fL MCH 28.4 (27.0-32.0) pg MCHC 31.9 (31.0-37.0) g/dL RDW Std Deviation 46.7 (28.0-62.0) fl RDW Coeff of Osvaldo 14 (11.0-15.0) % Plt Count 185 (150-400) K/uL MPV 10.50 (7.40-12.00) fL Neut % (Auto) 66.6 (48.0-80.0) % Lymph % (Auto) 19.3 (16.0-40.0) % [place] % (Auto) 13.4 (0.0-15.0) % Eos % (Auto) 0.5 (0.0-7.0) % Baso % (Auto) 0.2 (0.0-1.5) % Neut # (Auto) 3.9 (1.4-5.7) K/uL Lymph # (Auto) 1.1 (0.6-2.4) K/uL [place] # (Auto) 0.8 (0.0-0.8) K/uL Eos # (Auto) 0.0 (0.0-0.7) K/uL Baso # (Auto) 0.0 (0.0-0.1) K/uL Nucleated RBC % 0.0 /100WBC Nucleated RBCs # 0 K/uL Sodium (136-148) mmol/L Potassium (3.5-5.1) mmol/L Chloride (98-107) mmol/L Carbon Dioxide (21.0-32.0) mmol/L BUN (7.0-18.0) mg/dL Creatinine (0.8-1.3) mg/dL Est Cr Clr Drug Dosing mL/min Estimated GFR (MDRD) ml/min Glucose (74-106) mg/dL POC Glucose 158 H 172 H (60-110) mg/dL Calcium (8.5-10.1) mg/dL Total Bilirubin (0.2-1.0) mg/dL AST (15-37) IU/L ALT (14-63) IU/L Alkaline Phosphatase (46-116) U/L Total Protein (6.4-8.2) g/dL Albumin (3.4-5.0) g/dL Globulin (2.0-3.5) g/dL Albumin/Globulin Ratio (1.3-2.8) 01/13/18 01/13/18 Range/Units 04:50 06:47 WBC (4.0-11.0) K/uL RBC (4.50-5.90) M/uL Hgb (13.0-17.0) g/dL Hct (38.0-50.0) % MCV (80.0-98.0) fL MCH (27.0-32.0) pg MCHC (31.0-37.0) g/dL RDW Std Deviation (28.0-62.0) fl RDW Coeff of Osvaldo (11.0-15.0) % Plt Count (150-400) K/uL MPV (7.40-12.00) fL Neut % (Auto) (48.0-80.0) % Lymph % (Auto) (16.0-40.0) % [place] % (Auto) (0.0-15.0) % Eos % (Auto) (0.0-7.0) % Baso % (Auto) (0.0-1.5) % Neut # (Auto) (1.4-5.7) K/uL Lymph # (Auto) (0.6-2.4) K/uL [place] # (Auto) (0.0-0.8) K/uL Eos # (Auto) (0.0-0.7) K/uL Baso # (Auto) (0.0-0.1) K/uL Nucleated RBC % /100WBC Nucleated RBCs # K/uL Sodium 140 (136-148) mmol/L Potassium 3.5 (3.5-5.1) mmol/L Chloride 102 (98-107) mmol/L Carbon Dioxide 29.8 (21.0-32.0) mmol/L BUN 32 H (7.0-18.0) mg/dL Creatinine 1.1 (0.8-1.3) mg/dL Est Cr Clr Drug Dosing 64.68 mL/min Estimated GFR (MDRD) > 60.0 ml/min Glucose 166 H (74-106) mg/dL POC Glucose 158 H (60-110) mg/dL Calcium 9.1 (8.5-10.1) mg/dL Total Bilirubin 1.4 H (0.2-1.0) mg/dL AST 40 H (15-37) IU/L ALT 70 H (14-63) IU/L Alkaline Phosphatase 94 (46-116) U/L Total Protein 6.6 (6.4-8.2) g/dL Albumin 3.1 L (3.4-5.0) g/dL Globulin 3.5 (2.0-3.5) g/dL Albumin/Globulin Ratio 0.9 L (1.3-2.8) Med Orders - Current: Current Medications Albuterol/Ipratropium (Duoneb 3.0-0.5 Mg/3 Ml) 3 ml NEB Q4HRRT PRN PRN Reason: Shortness Of Breath/wheezing Last Admin: 01/12/18 06:25 Dose: 3 ml Apixaban (Eliquis) 5 mg PO BID [facility] Last Admin: 01/13/18 08:18 Dose: 5 mg Furosemide (Lasix) 80 mg PO BIDDIURETIC [facility] Last Admin: 01/13/18 08:17 Dose: 80 mg Insulin Aspart (Novolog) 0 unit SUBCUT TIDAC [facility]; Protocol Last Admin: 01/13/18 06:49 Dose: 1 unit Metoprolol Succinate (Toprol Xl) 25 mg PO DAILY [facility] Last Admin: 01/13/18 08:18 Dose: 25 mg Sodium Chloride (Saline Flush) 10 ml FLUSH ASDIRECTED PRN PRN Reason: Keep Vein Open Last Admin: 01/08/18 20:39 Dose: 10 ml Sodium Chloride (Saline Flush) 2.5 ml FLUSH ASDIRECTED PRN PRN Reason: Keep Vein Open Last Admin: 01/08/18 20:37 Dose: 2.5 ml Sodium Chloride (Sodium Chloride 0.9%) 3 ml INH Q6H [facility] Last Admin: 01/13/18 06:33 Dose: 3 ml Discontinued Medications Aspirin (Aspirin) 324 mg PO ONETIME ONE Stop: 01/08/18 20:23 Last Admin: 01/08/18 20:37 Dose: 324 mg Aspirin (Aspirin) 81 mg PO DAILY [facility] Last Admin: 01/11/18 17:32 Dose: Not Given Dextrose/Water (Dextrose 50% In Water) 50 ml IVPUSH ONETIME ONE Stop: 01/08/18 20:33 Last Admin: 01/08/18 20:39 Dose: 50 ml Dextrose/Water (Dextrose 50% In Water) 50 ml IVPUSH STAT STA Stop: 01/09/18 00:41 Last Admin: 01/09/18 00:50 Dose: 50 ml Digoxin (Lanoxin) 250 mcg IVPUSH ONETIME ONE Stop: 01/10/18 10:21 Last Admin: 01/10/18 10:46 Dose: 250 mcg Furosemide (Lasix) 80 mg IVPUSH NOW ONE Stop: 01/09/18 09:01 Last Admin: 01/09/18 09:12 Dose: Not Given Furosemide (Lasix) 40 mg IVPUSH NOW ONE Stop: 01/09/18 09:01 Last Admin: 01/09/18 09:16 Dose: 40 mg Furosemide (Lasix) 40 mg IVPUSH NOW ONE Stop: 01/09/18 10:38 Last Admin: 01/09/18 10:48 Dose: 40 mg Furosemide (Lasix) 40 mg IVPUSH BID@0800,1500 [facility] Furosemide (Lasix) 80 mg IVPUSH BID@0800,1500 [facility] Last Admin: 01/12/18 08:00 Dose: 80 mg Furosemide (Lasix) 80 mg IVPUSH NOW ONE Stop: 01/12/18 18:32 Last Admin: 01/12/18 18:37 Dose: 80 mg Heparin Sodium (Porcine) (Heparin Sodium) 5,000 units SUBCUT Q8H [facility] Last Admin: 01/11/18 15:59 Dose: 5,000 units Dextrose/Water (Dextrose 5% In Water) 1,000 mls @ 50 mls/hr IV ASDIRECTED [facility] Last Admin: 01/10/18 00:32 Dose: 50 mls/hr Levofloxacin/Dextrose 750 mg/ (Premix) 150 mls @ 100 mls/hr IV Q24H [facility] Last Admin: 01/11/18 21:01 Dose: 100 mls/hr Ceftriaxone Sodium/Dextrose 1 (gm/ Premix) 50 mls @ 100 mls/hr IV Q24H [facility] Last Admin: 01/11/18 22:57 Dose: 100 mls/hr Magnesium Sulfate 2 gm/ Premix 50 mls @ 25 mls/hr IV ONETIME ONE Stop: 01/10/18 10:53 Last Admin: 01/10/18 09:23 Dose: 50 mls/hr Magnesium Sulfate 2 gm/ Premix 50 mls @ 50 mls/hr IV ONETIME ONE Stop: 01/10/18 11:37 Last Admin: 01/10/18 10:47 Dose: 50 mls/hr Lisinopril (Prinivil) 2.5 mg PO ONETIME ONE Stop: 01/11/18 21:01 Last Admin: 01/11/18 21:01 Dose: 2.5 mg Potassium Chloride (Klor-Con M20) 40 meq PO ONETIME ONE Stop: 01/12/18 10:34 Last Admin: 01/12/18 12:10 Dose: 40 meq Sodium Chloride (Sodium Chloride 0.9%) 3 ml INH Q4HR [facility] Last Admin: 01/10/18 11:28 Dose: 3 ml Sodium Chloride (Sodium Chloride 0.9%) 3 ml INH Q4HR [facility] Last Admin: 01/11/18 03:34 Dose: 3 ml Sodium Chloride (Sodium Chloride 0.9%) 3 ml INH Q4H [facility] Sodium Chloride (Sodium Chloride 0.9%) 3 ml INH Q4HRRT [facility] Last Admin: 01/12/18 14:23 Dose: Not Given Sodium Chloride (Sodium Chloride 0.9%) 3 ml INH Q6H [facility] Last Admin: 01/12/18 15:18 Dose: Not Given - Exam General: Alert, Oriented HEENT: Pupils Equal, Pupils Reactive Neck: Supple Lungs: Rales, Rhonchi Cardiovascular: Regular Rate, Regular Rhythm GI/Abdominal Exam: Normal Bowel Sounds (Male) Exam: No Hernia Back Exam: Normal Inspection Extremities: Pedal Edema EKG INTERPRETATION Rhythm: NSR - Problem List Review Problem List Initiated/Reviewed/Updated: Yes - Plan Plan:: 72M traumatic brain injury longtime ago, with CAD PCI LAD PCI 1995, here with SOB, upper respiratory obstruction with tracheobronchomalacia, right PNA with decompensated systolic HF. EF 35-40% APfib during admission. 1. Resp: combination of PNA suspicious for aspiration. Talked his brother AMRIK, he did have prolong intubation like 3 months when he had traumatic brain injury when he was young. The stridor sound, abnormal breathing seemed to be noticed for a while. He lives alone at home, not quite certain about compliant. He has been treated with Abx, with chest physical therapy. - Abx for PNA per hospitalist - awaited to be discharged either [place] of inpatient [facility]. [facility]: we only have reports from [place] when he had PCI done in 1995 with stent. His Trop was elevated but it was not peaking, and it was trending down, the initial trop was the highest 0.8. Echo showed decline LVEF 35-40% the RWMA was difficult to assess due to poor quality, with mild MR, trace AR. He seemed to tolerate with toprol XL 25, will add lisinopril 2.5 tonight. he had one run of afib and it was converted, [id number] at least 5, will start him on NOAC. Due to history with traumatic brain injury, will hold off ASA. He will need ischemic possibly cath. Patient's POA preferred him roxanne scheduled to see polisher sand in [place]. It seemed patient's POA would like aggressive management. - NOAC for afib - toprol XL 25, lisinopril 2.5 - continue lasix 80 PO BID, will give one dose of lasix 80 IV
[2018-01-13] MEDS: Albuterol/Ipratropium 3.0-0.5 MG/3 ML Neb Soln NEB PRN (17:24)
[2018-01-14] MEDS: Sodium Chloride 0.9% Inhalation Soln 3 ML Neb INH SCH ×5 (00:29→23:40)
[2018-01-14] MEDS: Insulin Aspart 100 Units/ML 3 ML Pen SUBCUT SCH ×3 (06:37→18:13)
[2018-01-14 06:57] LABS: CHLORIDE,CL 102 mmol/L (98-107); SODIUM,NA 141 mmol/L (136-148)
[2018-01-14] MEDS: Furosemide 80 MG Tab PO SCH ×2 (08:57→16:12)
[2018-01-14] MEDS: Apixaban 5 MG Tab PO SCH ×2 (08:57→20:47)
[2018-01-14] MEDS: Metoprolol Succinate 25 MG Tab.ER PO SCH (08:58)
[2018-01-14] MEDS ORDERED: Potassium Chloride 20 MEQ Tab.ER PO ONE (16:11)
--- NOTE | 2018-01-14 16:16 | PCM.PN ---
- Review of Systems Systems Review Comment:: feeling well, no chest pain, no shortness of breath - Patient Data Vitals - Most Recent: Last Vital Signs Temp 36.2 C 01/14/18 12:00 Pulse 75 01/14/18 12:00 Resp 20 01/14/18 12:00 BP 113/67 01/14/18 12:00 Pulse Ox 92 L 01/14/18 12:00 Weight - Most Recent: 109.633 kg I&O - Last 24 Hours: Intake & Output 01/14/18 01/14/18 01/14/18 06:59 14:59 22:59 Intake Total 100 Output Total 750 Balance -650 Lab Results Last 24 Hours: Laboratory Results - last 24 hr 01/13/18 01/14/18 01/14/18 Range/Units 11:43 06:22 06:22 WBC 6.25 (4.0-11.0) K/uL RBC 4.69 (4.50-5.90) M/uL Hgb 13.3 (13.0-17.0) g/dL Hct 41.9 (38.0-50.0) % MCV 89.3 (80.0-98.0) fL MCH 28.4 (27.0-32.0) pg MCHC 31.7 (31.0-37.0) g/dL RDW Std Deviation 46.7 (28.0-62.0) fl RDW Coeff of Osvaldo 14 (11.0-15.0) % Plt Count 204 (150-400) K/uL MPV 10.20 (7.40-12.00) fL Neut % (Auto) 67.2 (48.0-80.0) % Lymph % (Auto) 18.6 (16.0-40.0) % [place] % (Auto) 13.4 (0.0-15.0) % Eos % (Auto) 0.6 (0.0-7.0) % Baso % (Auto) 0.2 (0.0-1.5) % Neut # (Auto) 4.2 (1.4-5.7) K/uL Lymph # (Auto) 1.2 (0.6-2.4) K/uL [place] # (Auto) 0.8 (0.0-0.8) K/uL Eos # (Auto) 0.0 (0.0-0.7) K/uL Baso # (Auto) 0.0 (0.0-0.1) K/uL Nucleated RBC % 0.0 /100WBC Nucleated RBCs # 0 K/uL Sodium 141 (136-148) mmol/L Potassium 3.4 L (3.5-5.1) mmol/L Chloride 102 (98-107) mmol/L Carbon Dioxide 31.5 (21.0-32.0) mmol/L BUN 26 H (7.0-18.0) mg/dL Creatinine 1.0 (0.8-1.3) mg/dL Est Cr Clr Drug Dosing 71.15 mL/min Estimated GFR (MDRD) > 60.0 ml/min Glucose 171 H (74-106) mg/dL POC Glucose 186 H (60-110) mg/dL Calcium 9.3 (8.5-10.1) mg/dL Total Bilirubin 1.7 H (0.2-1.0) mg/dL AST 34 (15-37) IU/L ALT 59 (14-63) IU/L Alkaline Phosphatase 84 (46-116) U/L Total Protein 6.7 (6.4-8.2) g/dL Albumin 3.2 L (3.4-5.0) g/dL Globulin 3.5 (2.0-3.5) g/dL Albumin/Globulin Ratio 0.9 L (1.3-2.8) Med Orders - Current: Current Medications Albuterol/Ipratropium (Duoneb 3.0-0.5 Mg/3 Ml) 3 ml NEB Q4HRRT PRN PRN Reason: Shortness Of Breath/wheezing Last Admin: 01/13/18 17:24 Dose: 3 ml Apixaban (Eliquis) 5 mg PO BID [facility] Last Admin: 01/14/18 08:57 Dose: 5 mg Furosemide (Lasix) 80 mg PO BIDDIURETIC [facility] Last Admin: 01/14/18 08:57 Dose: 80 mg Insulin Aspart (Novolog) 0 unit SUBCUT TIDAC [facility]; Protocol Last Admin: 01/14/18 12:52 Dose: 2 unit Metoprolol Succinate (Toprol Xl) 25 mg PO DAILY [facility] Last Admin: 01/14/18 08:58 Dose: 25 mg Sodium Chloride (Saline Flush) 10 ml FLUSH ASDIRECTED PRN PRN Reason: Keep Vein Open Last Admin: 01/08/18 20:39 Dose: 10 ml Sodium Chloride (Saline Flush) 2.5 ml FLUSH ASDIRECTED PRN PRN Reason: Keep Vein Open Last Admin: 01/08/18 20:37 Dose: 2.5 ml Sodium Chloride (Sodium Chloride 0.9%) 3 ml INH Q6H [facility] Last Admin: 01/14/18 12:05 Dose: 3 ml Discontinued Medications Aspirin (Aspirin) 324 mg PO ONETIME ONE Stop: 01/08/18 20:23 Last Admin: 01/08/18 20:37 Dose: 324 mg Aspirin (Aspirin) 81 mg PO DAILY [facility] Last Admin: 01/11/18 17:32 Dose: Not Given Dextrose/Water (Dextrose 50% In Water) 50 ml IVPUSH ONETIME ONE Stop: 01/08/18 20:33 Last Admin: 01/08/18 20:39 Dose: 50 ml Dextrose/Water (Dextrose 50% In Water) 50 ml IVPUSH STAT STA Stop: 01/09/18 00:41 Last Admin: 01/09/18 00:50 Dose: 50 ml Digoxin (Lanoxin) 250 mcg IVPUSH ONETIME ONE Stop: 01/10/18 10:21 Last Admin: 01/10/18 10:46 Dose: 250 mcg Furosemide (Lasix) 80 mg IVPUSH NOW ONE Stop: 01/09/18 09:01 Last Admin: 01/09/18 09:12 Dose: Not Given Furosemide (Lasix) 40 mg IVPUSH NOW ONE Stop: 01/09/18 09:01 Last Admin: 01/09/18 09:16 Dose: 40 mg Furosemide (Lasix) 40 mg IVPUSH NOW ONE Stop: 01/09/18 10:38 Last Admin: 01/09/18 10:48 Dose: 40 mg Furosemide (Lasix) 40 mg IVPUSH BID@0800,1500 [facility] Furosemide (Lasix) 80 mg IVPUSH BID@0800,1500 [facility] Last Admin: 01/12/18 08:00 Dose: 80 mg Furosemide (Lasix) 80 mg IVPUSH NOW ONE Stop: 01/12/18 18:32 Last Admin: 01/12/18 18:37 Dose: 80 mg Heparin Sodium (Porcine) (Heparin Sodium) 5,000 units SUBCUT Q8H [facility] Last Admin: 01/11/18 15:59 Dose: 5,000 units Dextrose/Water (Dextrose 5% In Water) 1,000 mls @ 50 mls/hr IV ASDIRECTED [facility] Last Admin: 01/10/18 00:32 Dose: 50 mls/hr Levofloxacin/Dextrose 750 mg/ (Premix) 150 mls @ 100 mls/hr IV Q24H [facility] Last Admin: 01/11/18 21:01 Dose: 100 mls/hr Ceftriaxone Sodium/Dextrose 1 (gm/ Premix) 50 mls @ 100 mls/hr IV Q24H [facility] Last Admin: 01/11/18 22:57 Dose: 100 mls/hr Magnesium Sulfate 2 gm/ Premix 50 mls @ 25 mls/hr IV ONETIME ONE Stop: 01/10/18 10:53 Last Admin: 01/10/18 09:23 Dose: 50 mls/hr Magnesium Sulfate 2 gm/ Premix 50 mls @ 50 mls/hr IV ONETIME ONE Stop: 01/10/18 11:37 Last Admin: 01/10/18 10:47 Dose: 50 mls/hr Lisinopril (Prinivil) 2.5 mg PO ONETIME ONE Stop: 01/11/18 21:01 Last Admin: 01/11/18 21:01 Dose: 2.5 mg Potassium Chloride (Klor-Con M20) 40 meq PO ONETIME ONE Stop: 01/12/18 10:34 Last Admin: 01/12/18 12:10 Dose: 40 meq Sodium Chloride (Sodium Chloride 0.9%) 3 ml INH Q4HR [facility] Last Admin: 01/10/18 11:28 Dose: 3 ml Sodium Chloride (Sodium Chloride 0.9%) 3 ml INH Q4HR [facility] Last Admin: 01/11/18 03:34 Dose: 3 ml Sodium Chloride (Sodium Chloride 0.9%) 3 ml INH Q4H VAN Sodium Chloride (Sodium Chloride 0.9%) 3 ml INH Q4HRRT [facility] Last Admin: 01/12/18 14:23 Dose: Not Given Sodium Chloride (Sodium Chloride 0.9%) 3 ml INH Q6H [facility] Last Admin: 01/12/18 15:18 Dose: Not Given - Exam General: Alert, Oriented Lungs: Normal Respiratory Effort, Rhonchi Cardiovascular: Regular Rate, Regular Rhythm GI/Abdominal Exam: Soft, Non-Tender Extremities: Pedal Edema Skin: Warm, Dry, Intact Neurological: No New Focal Deficit - Problem List Review Problem List Initiated/Reviewed/Updated: Yes - My Orders Last 24 Hours: My Active Orders 01/13/18 16:36 Overnight Pulse Oximetry [RC] Click to Edit Telemetry Monitoring [Cardiac Monitoring] [RC] . DIRECTED 01/14/18 16:11 Potassium Chloride [Klor-Con M20] 40 meq PO ONETIME ONE 01/15/18 05:11 BASIC METABOLIC PANEL,BMP [CHEM] AM CBC WITH AUTO DIFF [HEME] AM MAGNESIUM [CHEM] AM 01/16/18 05:11 BASIC METABOLIC PANEL,BMP [CHEM] AM CBC WITH AUTO DIFF [HEME] AM MAGNESIUM [CHEM] AM 01/17/18 05:11 BASIC METABOLIC PANEL,BMP [CHEM] AM CBC WITH AUTO DIFF [HEME] AM MAGNESIUM [CHEM] AM 01/18/18 05:11 BASIC METABOLIC PANEL,BMP [CHEM] AM CBC WITH AUTO DIFF [HEME] AM MAGNESIUM [CHEM] AM 01/19/18 05:11 BASIC METABOLIC PANEL,BMP [CHEM] AM CBC WITH AUTO DIFF [HEME] AM MAGNESIUM [CHEM] AM 01/20/18 05:11 BASIC METABOLIC PANEL,BMP [CHEM] AM CBC WITH AUTO DIFF [HEME] AM MAGNESIUM [CHEM] AM - Plan Plan:: 72M traumatic brain injury longtime ago, with CAD PCI LAD PCI 1995, here with SOB, upper respiratory obstruction with tracheobronchomalacia, right PNA with decompensated systolic HF. EF 35-40% A. fib during admission. 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
[2018-01-14] MEDS ORDERED: Potassium Chloride 20 MEQ Tab.ER ONE ×2 (16:24→16:52)
[2018-01-14] MEDS: guaiFENesin/Dextromethorphan 100-10 MG/5 ML Soln 10 ML Cup PO PRN (23:40)
[2018-01-15] MEDS: Sodium Chloride 0.9% Inhalation Soln 3 ML Neb INH SCH ×3 (05:55→17:48)
[2018-01-15 06:40] LABS: CHLORIDE,CL 103 mmol/L (98-107); SODIUM,NA 142 mmol/L (136-148)
[2018-01-15] MEDS: Insulin Aspart 100 Units/ML 3 ML Pen SUBCUT SCH ×3 (07:07→17:10)
[2018-01-15] MEDS: Furosemide 80 MG Tab PO SCH ×2 (09:00→13:58)
[2018-01-15] MEDS: Lisinopril 5 MG Tab PO SCH (09:04)
[2018-01-15] MEDS: Apixaban 5 MG Tab PO SCH ×2 (09:04→21:20)
[2018-01-15] MEDS: Metoprolol Succinate 25 MG Tab.ER PO SCH (09:05)
--- NOTE | 2018-01-15 15:06 | PCM.PN ---
- Review of Systems Systems Review Comment:: no complaints, denies shortness of breath or chest pain. - Patient Data Vitals - Most Recent: Last Vital Signs Temp 35.9 C 01/15/18 12:00 Pulse 82 01/15/18 12:00 Resp 22 H 01/15/18 12:00 BP 119/56 L 01/15/18 12:00 Pulse Ox 97 01/15/18 12:00 Weight - Most Recent: 109.225 kg I&O - Last 24 Hours: Intake & Output 01/15/18 01/15/18 01/15/18 06:59 14:59 22:59 Intake Total 300 Output Total 950 Balance -650 Lab Results Last 24 Hours: Laboratory Results - last 24 hr 01/15/18 01/15/18 Range/Units 06:05 06:05 WBC 6.52 (4.0-11.0) K/uL RBC 4.76 (4.50-5.90) M/uL Hgb 13.8 (13.0-17.0) g/dL Hct 42.4 (38.0-50.0) % MCV 89.1 (80.0-98.0) fL MCH 29.0 (27.0-32.0) pg MCHC 32.5 (31.0-37.0) g/dL RDW Std Deviation 46.1 (28.0-62.0) fl RDW Coeff of Osvaldo 14 (11.0-15.0) % Plt Count 215 (150-400) K/uL MPV 10.30 (7.40-12.00) fL Neut % (Auto) 66.4 (48.0-80.0) % Lymph % (Auto) 19.2 (16.0-40.0) % [place] % (Auto) 12.6 (0.0-15.0) % Eos % (Auto) 1.5 (0.0-7.0) % Baso % (Auto) 0.3 (0.0-1.5) % Neut # (Auto) 4.3 (1.4-5.7) K/uL Lymph # (Auto) 1.3 (0.6-2.4) K/uL [place] # (Auto) 0.8 (0.0-0.8) K/uL Eos # (Auto) 0.1 (0.0-0.7) K/uL Baso # (Auto) 0.0 (0.0-0.1) K/uL Nucleated RBC % 0.0 /100WBC Nucleated RBCs # 0 K/uL Sodium 142 (136-148) mmol/L Potassium 3.3 L (3.5-5.1) mmol/L Chloride 103 (98-107) mmol/L Carbon Dioxide 30.5 (21.0-32.0) mmol/L BUN 22 H (7.0-18.0) mg/dL Creatinine 0.9 (0.8-1.3) mg/dL Est Cr Clr Drug Dosing 79.05 mL/min Estimated GFR (MDRD) > 60.0 ml/min Glucose 184 H (74-106) mg/dL Calcium 9.3 (8.5-10.1) mg/dL Magnesium 1.5 (1.5-2.0) mg/dL Med Orders - Current: Current Medications Albuterol/Ipratropium (Duoneb 3.0-0.5 Mg/3 Ml) 3 ml NEB Q4HRRT PRN PRN Reason: Shortness Of Breath/wheezing Last Admin: 01/13/18 17:24 Dose: 3 ml Apixaban (Eliquis) 5 mg PO BID [facility] Last Admin: 01/15/18 09:04 Dose: 5 mg Furosemide (Lasix) 80 mg PO BIDDIURETIC [facility] Last Admin: 01/15/18 13:58 Dose: 80 mg Guaifenesin/Dextromethorphan (Robitussin Dm) 10 ml PO Q6H PRN PRN Reason: Cough Last Admin: 01/14/18 23:40 Dose: 10 ml Insulin Aspart (Novolog) 0 unit SUBCUT TIDAC [facility]; Protocol Last Admin: 01/15/18 12:25 Dose: 2 unit Lisinopril (Prinivil) 2.5 mg PO DAILY [facility] Last Admin: 01/15/18 09:04 Dose: 2.5 mg Metoprolol Succinate (Toprol Xl) 25 mg PO DAILY [facility] Last Admin: 01/15/18 09:05 Dose: 25 mg Sodium Chloride (Saline Flush) 10 ml FLUSH ASDIRECTED PRN PRN Reason: Keep Vein Open Last Admin: 01/08/18 20:39 Dose: 10 ml Sodium Chloride (Saline Flush) 2.5 ml FLUSH ASDIRECTED PRN PRN Reason: Keep Vein Open Last Admin: 01/08/18 20:37 Dose: 2.5 ml Sodium Chloride (Sodium Chloride 0.9%) 3 ml INH Q6H [facility] Last Admin: 01/15/18 12:33 Dose: 3 ml Discontinued Medications Aspirin (Aspirin) 324 mg PO ONETIME ONE Stop: 01/08/18 20:23 Last Admin: 01/08/18 20:37 Dose: 324 mg Aspirin (Aspirin) 81 mg PO DAILY [facility] Last Admin: 01/11/18 17:32 Dose: Not Given Dextrose/Water (Dextrose 50% In Water) 50 ml IVPUSH ONETIME ONE Stop: 01/08/18 20:33 Last Admin: 01/08/18 20:39 Dose: 50 ml Dextrose/Water (Dextrose 50% In Water) 50 ml IVPUSH STAT STA Stop: 01/09/18 00:41 Last Admin: 01/09/18 00:50 Dose: 50 ml Digoxin (Lanoxin) 250 mcg IVPUSH ONETIME ONE Stop: 01/10/18 10:21 Last Admin: 01/10/18 10:46 Dose: 250 mcg Furosemide (Lasix) 80 mg IVPUSH NOW ONE Stop: 01/09/18 09:01 Last Admin: 01/09/18 09:12 Dose: Not Given Furosemide (Lasix) 40 mg IVPUSH NOW ONE Stop: 01/09/18 09:01 Last Admin: 01/09/18 09:16 Dose: 40 mg Furosemide (Lasix) 40 mg IVPUSH NOW ONE Stop: 01/09/18 10:38 Last Admin: 01/09/18 10:48 Dose: 40 mg Furosemide (Lasix) 40 mg IVPUSH BID@0800,1500 [facility] Furosemide (Lasix) 80 mg IVPUSH BID@0800,1500 [facility] Last Admin: 01/12/18 08:00 Dose: 80 mg Furosemide (Lasix) 80 mg IVPUSH NOW ONE Stop: 01/12/18 18:32 Last Admin: 01/12/18 18:37 Dose: 80 mg Heparin Sodium (Porcine) (Heparin Sodium) 5,000 units SUBCUT Q8H [facility] Last Admin: 01/11/18 15:59 Dose: 5,000 units Dextrose/Water (Dextrose 5% In Water) 1,000 mls @ 50 mls/hr IV ASDIRECTED [facility] Last Admin: 01/10/18 00:32 Dose: 50 mls/hr Levofloxacin/Dextrose 750 mg/ (Premix) 150 mls @ 100 mls/hr IV Q24H [facility] Last Admin: 01/11/18 21:01 Dose: 100 mls/hr Ceftriaxone Sodium/Dextrose 1 (gm/ Premix) 50 mls @ 100 mls/hr IV Q24H [facility] Last Admin: 01/11/18 22:57 Dose: 100 mls/hr Magnesium Sulfate 2 gm/ Premix 50 mls @ 25 mls/hr IV ONETIME ONE Stop: 01/10/18 10:53 Last Admin: 01/10/18 09:23 Dose: 50 mls/hr Magnesium Sulfate 2 gm/ Premix 50 mls @ 50 mls/hr IV ONETIME ONE Stop: 01/10/18 11:37 Last Admin: 01/10/18 10:47 Dose: 50 mls/hr Lisinopril (Prinivil) 2.5 mg PO ONETIME ONE Stop: 01/11/18 21:01 Last Admin: 01/11/18 21:01 Dose: 2.5 mg Potassium Chloride (Klor-Con M20) 40 meq PO ONETIME ONE Stop: 01/12/18 10:34 Last Admin: 01/12/18 12:10 Dose: 40 meq Potassium Chloride (Klor-Con M20) 40 meq PO ONETIME ONE Stop: 01/14/18 16:12 Last Admin: 01/14/18 16:21 Dose: 40 meq Potassium Chloride (Klor-Con M20) Confirm Administered Dose 20 meq .ROUTE .STK- MED ONE Stop: 01/14/18 16:25 Last Admin: 01/14/18 16:49 Dose: Not Given Potassium Chloride (Klor-Con M20) Confirm Administered Dose 20 meq .ROUTE .STK- MED ONE Stop: 01/14/18 16:53 Last Admin: 01/14/18 18:11 Dose: Not Given Sodium Chloride (Sodium Chloride 0.9%) 3 ml INH Q4HR [facility] Last Admin: 01/10/18 11:28 Dose: 3 ml Sodium Chloride (Sodium Chloride 0.9%) 3 ml INH Q4HR [facility] Last Admin: 01/11/18 03:34 Dose: 3 ml Sodium Chloride (Sodium Chloride 0.9%) 3 ml INH Q4H [facility] Sodium Chloride (Sodium Chloride 0.9%) 3 ml INH Q4HRRT [facility] Last Admin: 01/12/18 14:23 Dose: Not Given Sodium Chloride (Sodium Chloride 0.9%) 3 ml INH Q6H [facility] Last Admin: 01/12/18 15:18 Dose: Not Given - Exam General: Alert, Oriented Cardiovascular: Regular Rate, Regular Rhythm GI/Abdominal Exam: Soft, Non-Tender Extremities: Pedal Edema (+2 edema) Skin: Warm, Dry, Intact - Problem List Review Problem List Initiated/Reviewed/Updated: Yes - My Orders Last 24 Hours: My Active Orders 01/14/18 22:52 Dextromethorphan/guaiFENesin [Robitussin DM] 10 ml PO Q6H PRN 01/15/18 09:00 Lisinopril [Prinivil] 2.5 mg PO DAILY 01/16/18 05:11 BASIC METABOLIC PANEL,BMP [CHEM] AM CBC WITH AUTO DIFF [HEME] AM MAGNESIUM [CHEM] AM 01/17/18 05:11 BASIC METABOLIC PANEL,BMP [CHEM] AM CBC WITH AUTO DIFF [HEME] AM MAGNESIUM [CHEM] AM 01/18/18 05:11 BASIC METABOLIC PANEL,BMP [CHEM] AM CBC WITH AUTO DIFF [HEME] AM MAGNESIUM [CHEM] AM 01/19/18 05:11 BASIC METABOLIC PANEL,BMP [CHEM] AM CBC WITH AUTO DIFF [HEME] AM MAGNESIUM [CHEM] AM 01/20/18 05:11 BASIC METABOLIC PANEL,BMP [CHEM] AM CBC WITH AUTO DIFF [HEME] AM MAGNESIUM [CHEM] AM - Plan Plan:: 72M traumatic brain injury longtime ago, with CAD PCI LAD PCI 1995, here with SOB, upper respiratory obstruction with tracheobronchomalacia, right PNA with decompensated systolic HF. EF 35-40% A. fib during admission. 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 CAD: will need follow up for ischemic work up, did have mildly elevated troponins on admission Dispo: [facility] when bed available.
[2018-01-15] MEDS ORDERED: Potassium Chloride 20 MEQ Tab.ER PO ONE (16:14)
[2018-01-15] MEDS: guaiFENesin/Dextromethorphan 100-10 MG/5 ML Soln 10 ML Cup PO PRN (16:55)
[2018-01-16] MEDS: Sodium Chloride 0.9% Inhalation Soln 3 ML Neb INH SCH ×3 (04:49→12:03)
[2018-01-16 06:23] LABS: CHLORIDE,CL 104 mmol/L (98-107); SODIUM,NA 143 mmol/L (136-148)
[2018-01-16] MEDS: Insulin Aspart 100 Units/ML 3 ML Pen SUBCUT SCH ×2 (06:32→12:03)
[2018-01-16] MEDS: Furosemide 80 MG Tab PO SCH (08:45)
[2018-01-16] MEDS: Metoprolol Succinate 25 MG Tab.ER PO SCH (08:45)
[2018-01-16] MEDS: Lisinopril 5 MG Tab PO SCH (08:45)
[2018-01-16] MEDS: Apixaban 5 MG Tab PO SCH (08:54)
[2018-01-16] MEDS: guaiFENesin/Dextromethorphan 100-10 MG/5 ML Soln 10 ML Cup PO PRN (09:58)
[2018-01-16 10:13] VITALS: BP 115/75
--- NOTE | 2018-01-18 15:37 | PCM.DCSUM1 ---
<Nain Trujillo - Last Filed: 01/18/18 15:31> Discharge Summary - Hospital Course Free Text/Narrative:: Admission diagnosis: #1. CHF exacerbation with acute hypoxia #2. Elevated troponin Discharge diagnosis: #1. CHF exacerbation with acute hypoxia, improved #2. Elevated troponin, improved #3. Tracheobronchomalacia #4. Atrial fibrillation 72-year-old male that was admitted with symptoms of shortness of breath with exertion, increasing edema in the lower extremities and orthopnea. Was suspected that the patient is suffering from a CHF exacerbation leading to acute hypoxic respiratory failure. His most recent echocardiogram showed an ejection fraction of 35-40%. BNP was elevated at 1669. Patient did have a chest x-ray done which showed an elevated right hemidiaphragm, increased cardiac silhouette and bibasilar atelectasis without consolidation. White blood cell count was normal throughout entire admission. Patient was never started on antibiotics given that he had a normal white blood cell count and was improving with IV Lasix which was given for his CHF exacerbation. Sputum cultures were negative. Patient also had elevated troponins on admission. These were trending down throughout admission. Dr. Lund, stripe marker, was consult it and did see the patient. He believes that the elevated troponins were secondary to demand ischemia from decompensated heart failure. Patient also developed new onset atrial fibrillation during admission and was treated with digoxin, metoprolol and lisinopril. Dr. Lund continue to follow the patient as this was new onset atrial fibrillation. He was started on Eliquis for anticoagulation. He was also placed on telemetry. Patient also was noted to have noisy breathing and desaturations while sleeping. A chest CT was obtained which showed tracheobronchomalacia with 75% narrowing of the trachea with inspiration. Patient started on chest physiotherapy and received saline nebulizer treatments. Throughout admission the patient was requiring anywhere between 1-5 L nasal cannula to maintain his oxygen saturation greater than 95%. Patient was refusing use of CPAP at night. He did desat when sleeping but his oxygen saturation increased dramatically once awake. Given the patient's new onset atrial fibrillation, significant narrowing of the trachea and oxygen desaturations, the family was asking for the patient to be transferred to a facility that can provide a higher level of care. I spoke with Dr. Contreras from the ER at [facility] in [place] and he agreed to accept the patient for transfer. When the patient was transferred, he was tolerating oral intake, voiding appropriately and doing well. - Discharge Data Discharge Date: 01/16/18 Discharge Disposition: DC/Tfer to Acute Hospital 02 Condition: Fair - Discharge Diagnosis/Problem(s) (1) Congestive heart failure SNOMED Code(s): 39226020 ICD Code: I50.9 - HEART FAILURE, UNSPECIFIED Status: Acute (2) Elevated troponin SNOMED Code(s): 005054524, 442102125, 607989272 ICD Code: R74.8 - ABNORMAL LEVELS OF OTHER SERUM ENZYMES Status: Acute (3) New onset atrial fibrillation SNOMED Code(s): 78581084 ICD Code: I48.91 - UNSPECIFIED ATRIAL FIBRILLATION Status: Acute (4) Tracheobronchomalacia SNOMED Code(s): 128040828 ICD Code: J39.8 - OTHER SPECIFIED DISEASES OF UPPER RESPIRATORY TRACT Status: Acute - Patient Summary/Data Consults: Consultations 01/12/18 11:04 Consult to Physical Therapy [PT Evaluation and Treatment] [CONS] Routine Consult to Chuck Splitter [CONS] Routine - Patient Instructions Diet: Heart Healthy Diet - Discharge Plan Home Medications: Home Meds Dutasteride [Avodart] 0.5 mg PO DAILY 06/06/15 [History] Insulin Aspart [Novolog Flexpen] 1 injection SUBCUT ASDIRECTED 06/06/15 [History ] Insulin Detemir [Levemir] 25 units SUBCUT BID 06/06/15 [History] Losartan Potassium 50 mg PO DAILY 06/06/15 [History] Nitroglycerin [Nitrostat] 0.4 mg SL ASDIRECTED PRN 06/06/15 [History] Tamsulosin HCl 0.4 mg PO DAILY 06/06/15 [History] atorvaSTATin [Lipitor] 40 mg PO DAILY 06/06/15 [History] PARoxetine HCl [Paxil] 40 mg PO DAILY 08/05/15 [History] Furosemide [Lasix] 80 mg PO DAILY 01/08/18 [History] Potassium Chloride [Klor-Con M20] 1 tab PO DAILY 01/08/18 [History] Albuterol/Ipratropium [DuoNeb 3.0-0.5 MG/3 ML] 3 ml NEB Q4HRRT PRN neb [Rx] Apixaban [Eliquis] 5 mg PO BID tablet 01/16/18 [Rx] Dextromethorphan/guaiFENesin [Robitussin DM] 10 ml PO Q6H PRN cup 01/16/18 [Rx] Furosemide [Lasix] 80 mg PO BIDDIURETIC tablet 01/16/18 [Rx] Insulin Aspart [NovoLOG] 0 unit SUBCUT TIDAC pen 01/16/18 [Rx] Lisinopril [Prinivil] 2.5 mg PO DAILY tablet 01/16/18 [Rx] Metoprolol Succinate [Toprol XL] 25 mg PO DAILY tab.er 01/16/18 [Rx] Patient Handouts: Tracheomalacia, Pediatric, Heart Failure, [id number], Atrial Fibrillation, [id number], Community-Acquired Pneumonia, Adult, Easy-to- Read Referrals: Romel Dc MD [Primary Care Provider] - 01/18/18 1:45 pm Gonzalo Jane MD [Ordering Only Provider] - 01/31/18 12:45 pm - Discharge Summary/Plan Comment DC Time >30 min.: No Discharge Summary/Plan Comment: Admission diagnosis: #1. CHF exacerbation with acute hypoxia #2. Elevated troponin Discharge diagnosis: #1. CHF exacerbation with acute hypoxia, improved #2. Elevated troponin, improved #3. Tracheobronchomalacia #4. Atrial fibrillation 72-year-old male that was admitted with symptoms of shortness of breath with exertion, increasing edema in the lower extremities and orthopnea. Was suspected that the patient is suffering from a CHF exacerbation leading to acute hypoxic respiratory failure. His most recent echocardiogram showed an ejection fraction of 35-40%. BNP was elevated at 1669. Patient did have a chest x-ray done which showed an elevated right hemidiaphragm, increased cardiac silhouette and bibasilar atelectasis without consolidation. White blood cell count was normal throughout entire admission. Patient was never started on antibiotics given that he had a normal white blood cell count and was improving with IV Lasix which was given for his CHF exacerbation. Sputum cultures were negative. Patient also had elevated troponins on admission. These were trending down throughout admission. Dr. Lund, stripe marker, was consult it and did see the patient. He believes that the elevated troponins were secondary to demand ischemia from decompensated heart failure. Patient also developed new onset atrial fibrillation during admission and was treated with digoxin, metoprolol and lisinopril. Dr. Lund continue to follow the patient as this was new onset atrial fibrillation. He was started on Eliquis for anticoagulation. He was also placed on telemetry. Patient also was noted to have noisy breathing and desaturations while sleeping. A chest CT was obtained which showed tracheobronchomalacia with 75% narrowing of the trachea with inspiration. Patient started on chest physiotherapy and received saline nebulizer treatments. Throughout admission the patient was requiring anywhere between 1-5 L nasal cannula to maintain his oxygen saturation greater than 95%. Patient was refusing use of CPAP at night. He did desat when sleeping but his oxygen saturation increased dramatically once awake. Given the patient's new onset atrial fibrillation, significant narrowing of the trachea and oxygen desaturations, the family was asking for the patient to be transferred to a facility that can provide a higher level of care. I spoke with Dr. Contreras from the ER at [facility] in [place] and he agreed to accept the patient for transfer. When the patient was transferred, he was tolerating oral intake, voiding appropriately and doing well. Discharge plan: #1. I spoke with Dr. Contreras, ER physician, at [facility] in [place]. He accepted the patient for transfer for higher level of care. - Patient Data Vitals - Most Recent: Last Vital Signs Temp 96.8 F 01/16/18 10:06 Pulse 75 01/16/18 10:06 Resp 20 01/16/18 10:06 BP 115/75 01/16/18 10:06 Pulse Ox 95 01/16/18 10:06 Weight - Most Recent: 109.1 kg Med Orders - Current: Current Medications Discontinued Medications Albuterol/Ipratropium (Duoneb 3.0-0.5 Mg/3 Ml) 3 ml NEB Q4HRRT PRN PRN Reason: Shortness Of Breath/wheezing Last Admin: 01/13/18 17:24 Dose: 3 ml Apixaban (Eliquis) 5 mg PO BID [facility] Last Admin: 01/16/18 08:54 Dose: 5 mg Aspirin (Aspirin) 324 mg PO ONETIME ONE Stop: 01/08/18 20:23 Last Admin: 01/08/18 20:37 Dose: 324 mg Aspirin (Aspirin) 81 mg PO DAILY [facility] Last Admin: 01/11/18 17:32 Dose: Not Given Dextrose/Water (Dextrose 50% In Water) 50 ml IVPUSH ONETIME ONE Stop: 01/08/18 20:33 Last Admin: 01/08/18 20:39 Dose: 50 ml Dextrose/Water (Dextrose 50% In Water) 50 ml IVPUSH STAT STA Stop: 01/09/18 00:41 Last Admin: 01/09/18 00:50 Dose: 50 ml Digoxin (Lanoxin) 250 mcg IVPUSH ONETIME ONE Stop: 01/10/18 10:21 Last Admin: 01/10/18 10:46 Dose: 250 mcg Furosemide (Lasix) 80 mg IVPUSH NOW ONE Stop: 01/09/18 09:01 Last Admin: 01/09/18 09:12 Dose: Not Given Furosemide (Lasix) 40 mg IVPUSH NOW ONE Stop: 01/09/18 09:01 Last Admin: 01/09/18 09:16 Dose: 40 mg Furosemide (Lasix) 40 mg IVPUSH NOW ONE Stop: 01/09/18 10:38 Last Admin: 01/09/18 10:48 Dose: 40 mg Furosemide (Lasix) 40 mg IVPUSH BID@0800,1500 [facility] Furosemide (Lasix) 80 mg IVPUSH BID@0800,1500 [facility] Last Admin: 01/12/18 08:00 Dose: 80 mg Furosemide (Lasix) 80 mg PO BIDDIURETIC [facility] Last Admin: 01/16/18 08:45 Dose: Not Given Furosemide (Lasix) 80 mg IVPUSH NOW ONE Stop: 01/12/18 18:32 Last Admin: 01/12/18 18:37 Dose: 80 mg Guaifenesin/Dextromethorphan (Robitussin Dm) 10 ml PO Q6H PRN PRN Reason: Cough Last Admin: 01/16/18 09:58 Dose: 10 ml Heparin Sodium (Porcine) (Heparin Sodium) 5,000 units SUBCUT Q8H [facility] Last Admin: 01/11/18 15:59 Dose: 5,000 units Dextrose/Water (Dextrose 5% In Water) 1,000 mls @ 50 mls/hr IV ASDIRECTED [facility] Last Admin: 01/10/18 00:32 Dose: 50 mls/hr Levofloxacin/Dextrose 750 mg/ (Premix) 150 mls @ 100 mls/hr IV Q24H [facility] Last Admin: 01/11/18 21:01 Dose: 100 mls/hr Ceftriaxone Sodium/Dextrose 1 (gm/ Premix) 50 mls @ 100 mls/hr IV Q24H [facility] Last Admin: 01/11/18 22:57 Dose: 100 mls/hr Magnesium Sulfate 2 gm/ Premix 50 mls @ 25 mls/hr IV ONETIME ONE Stop: 01/10/18 10:53 Last Admin: 01/10/18 09:23 Dose: 50 mls/hr Magnesium Sulfate 2 gm/ Premix 50 mls @ 50 mls/hr IV ONETIME ONE Stop: 01/10/18 11:37 Last Admin: 01/10/18 10:47 Dose: 50 mls/hr Insulin Aspart (Novolog) 0 unit SUBCUT TIDAC [facility]; Protocol Last Admin: 01/16/18 12:03 Dose: Not Given Lisinopril (Prinivil) 2.5 mg PO ONETIME ONE Stop: 01/11/18 21:01 Last Admin: 01/11/18 21:01 Dose: 2.5 mg Lisinopril (Prinivil) 2.5 mg PO DAILY [facility] Last Admin: 01/16/18 08:45 Dose: Not Given Metoprolol Succinate (Toprol Xl) 25 mg PO DAILY [facility] Last Admin: 01/16/18 08:45 Dose: Not Given Potassium Chloride (Klor-Con M20) 40 meq PO ONETIME ONE Stop: 01/12/18 10:34 Last Admin: 01/12/18 12:10 Dose: 40 meq Potassium Chloride (Klor-Con M20) 40 meq PO ONETIME ONE Stop: 01/14/18 16:12 Last Admin: 01/14/18 16:21 Dose: 40 meq Potassium Chloride (Klor-Con M20) Confirm Administered Dose 20 meq .ROUTE .STK- MED ONE Stop: 01/14/18 16:25 Last Admin: 01/14/18 16:49 Dose: Not Given Potassium Chloride (Klor-Con M20) Confirm Administered Dose 20 meq .ROUTE .STK- MED ONE Stop: 01/14/18 16:53 Last Admin: 01/14/18 18:11 Dose: Not Given Potassium Chloride (Klor-Con M20) 40 meq PO ONETIME ONE Stop: 01/15/18 16:15 Last Admin: 01/15/18 16:54 Dose: 40 meq Sodium Chloride (Saline Flush) 10 ml FLUSH ASDIRECTED PRN PRN Reason: Keep Vein Open Last Admin: 01/08/18 20:39 Dose: 10 ml Sodium Chloride (Saline Flush) 2.5 ml FLUSH ASDIRECTED PRN PRN Reason: Keep Vein Open Last Admin: 01/08/18 20:37 Dose: 2.5 ml Sodium Chloride (Sodium Chloride 0.9%) 3 ml INH Q4HR VAN Last Admin: 01/10/18 11:28 Dose: 3 ml Sodium Chloride (Sodium Chloride 0.9%) 3 ml INH Q4HR VAN Last Admin: 01/11/18 03:34 Dose: 3 ml Sodium Chloride (Sodium Chloride 0.9%) 3 ml INH Q4H VAN Sodium Chloride (Sodium Chloride 0.9%) 3 ml INH Q4HRRT VAN Last Admin: 01/12/18 14:23 Dose: Not Given Sodium Chloride (Sodium Chloride 0.9%) 3 ml INH Q6H VAN Last Admin: 01/12/18 15:18 Dose: Not Given Sodium Chloride (Sodium Chloride 0.9%) 3 ml INH Q6H VAN Last Admin: 01/16/18 12:03 Dose: Not Given <Mauricio Omer - Last Filed: 01/22/18 13:07> Discharge Summary - Patient Summary/Data Consults: Consultations 01/12/18 11:04 Consult to Physical Therapy [PT Evaluation and Treatment] [CONS] Routine Consult to Chuck Splitter [CONS] Routine - Patient Data Vitals - Most Recent: Last Vital Signs Temp 36.0 C 01/16/18 10:06 Pulse 75 01/16/18 10:06 Resp 20 01/16/18 10:06 BP 115/75 01/16/18 10:06 Pulse Ox 95 01/16/18 10:06 Med Orders - Current: Current Medications Discontinued Medications Albuterol/Ipratropium (Duoneb 3.0-0.5 Mg/3 Ml) 3 ml NEB Q4HRRT PRN PRN Reason: Shortness Of Breath/wheezing Last Admin: 01/13/18 17:24 Dose: 3 ml Apixaban (Eliquis) 5 mg PO BID VAN Last Admin: 01/16/18 08:54 Dose: 5 mg Aspirin (Aspirin) 324 mg PO ONETIME ONE Stop: 01/08/18 20:23 Last Admin: 01/08/18 20:37 Dose: 324 mg Aspirin (Aspirin) 81 mg PO DAILY [facility] Last Admin: 01/11/18 17:32 Dose: Not Given Dextrose/Water (Dextrose 50% In Water) 50 ml IVPUSH ONETIME ONE Stop: 01/08/18 20:33 Last Admin: 01/08/18 20:39 Dose: 50 ml Dextrose/Water (Dextrose 50% In Water) 50 ml IVPUSH STAT STA Stop: 01/09/18 00:41 Last Admin: 01/09/18 00:50 Dose: 50 ml Digoxin (Lanoxin) 250 mcg IVPUSH ONETIME ONE Stop: 01/10/18 10:21 Last Admin: 01/10/18 10:46 Dose: 250 mcg Furosemide (Lasix) 80 mg IVPUSH NOW ONE Stop: 01/09/18 09:01 Last Admin: 01/09/18 09:12 Dose: Not Given Furosemide (Lasix) 40 mg IVPUSH NOW ONE Stop: 01/09/18 09:01 Last Admin: 01/09/18 09:16 Dose: 40 mg Furosemide (Lasix) 40 mg IVPUSH NOW ONE Stop: 01/09/18 10:38 Last Admin: 01/09/18 10:48 Dose: 40 mg Furosemide (Lasix) 40 mg IVPUSH BID@0800,1500 [facility] Furosemide (Lasix) 80 mg IVPUSH BID@0800,1500 [facility] Last Admin: 01/12/18 08:00 Dose: 80 mg Furosemide (Lasix) 80 mg PO BIDDIURETIC VAN Last Admin: 01/16/18 08:45 Dose: Not Given Furosemide (Lasix) 80 mg IVPUSH NOW ONE Stop: 01/12/18 18:32 Last Admin: 01/12/18 18:37 Dose: 80 mg Guaifenesin/Dextromethorphan (Robitussin Dm) 10 ml PO Q6H PRN PRN Reason: Cough Last Admin: 01/16/18 09:58 Dose: 10 ml Heparin Sodium (Porcine) (Heparin Sodium) 5,000 units SUBCUT Q8H [facility] Last Admin: 01/11/18 15:59 Dose: 5,000 units Dextrose/Water (Dextrose 5% In Water) 1,000 mls @ 50 mls/hr IV ASDIRECTED [facility] Last Admin: 01/10/18 00:32 Dose: 50 mls/hr Levofloxacin/Dextrose 750 mg/ (Premix) 150 mls @ 100 mls/hr IV Q24H [facility] Last Admin: 01/11/18 21:01 Dose: 100 mls/hr Ceftriaxone Sodium/Dextrose 1 (gm/ Premix) 50 mls @ 100 mls/hr IV Q24H [facility] Last Admin: 01/11/18 22:57 Dose: 100 mls/hr Magnesium Sulfate 2 gm/ Premix 50 mls @ 25 mls/hr IV ONETIME ONE Stop: 01/10/18 10:53 Last Admin: 01/10/18 09:23 Dose: 50 mls/hr Magnesium Sulfate 2 gm/ Premix 50 mls @ 50 mls/hr IV ONETIME ONE Stop: 01/10/18 11:37 Last Admin: 01/10/18 10:47 Dose: 50 mls/hr [facility]ulin [facility]) [facility] Last Admin: 01/16/18 12:03 Dose: Not Given Lisinopril (Prinivil) 2.5 mg PO ONETIME ONE Stop: 01/11/18 21:01 Last Admin: 01/11/18 21:01 Dose: 2.5 mg Lisinopril (Prinivil) 2.5 mg PO DAILY [facility] Last Admin: 01/16/18 08:45 Dose: Not Given Metoprolol Succinate (Toprol Xl) 25 mg PO DAILY [facility] Last Admin: 01/16/18 08:45 Dose: Not Given Potassium Chloride (Klor-Con M20) 40 meq PO ONETIME ONE Stop: 01/12/18 10:34 Last Admin: 01/12/18 12:10 Dose: 40 meq Potassium Chloride (Klor-Con M20) 40 meq PO ONETIME ONE Stop: 01/14/18 16:12 Last Admin: 01/14/18 16:21 Dose: 40 meq Potassium Chloride (Klor-Con M20) Confirm Administered Dose 20 meq .ROUTE .STK- MED ONE Stop: 01/14/18 16:25 Last Admin: 01/14/18 16:49 Dose: Not Given Potassium Chloride (Klor-Con M20) Confirm Administered Dose 20 meq .ROUTE .STK- MED ONE Stop: 01/14/18 16:53 Last Admin: 01/14/18 18:11 Dose: Not Given Potassium Chloride (Klor-Con M20) 40 meq PO ONETIME ONE Stop: 01/15/18 16:15 Last Admin: 01/15/18 16:54 Dose: 40 meq Sodium Chloride (Saline Flush) 10 ml FLUSH ASDIRECTED PRN PRN Reason: Keep Vein Open Last Admin: 01/08/18 20:39 Dose: 10 ml Sodium Chloride (Saline Flush) 2.5 ml FLUSH ASDIRECTED PRN PRN Reason: Keep Vein Open Last Admin: 01/08/18 20:37 Dose: 2.5 ml Sodium Chloride (Sodium Chloride 0.9%) 3 ml INH Q4HR VAN Last Admin: 01/10/18 11:28 Dose: 3 ml Sodium Chloride (Sodium Chloride 0.9%) 3 ml INH Q4HR VAN Last Admin: 01/11/18 03:34 Dose: 3 ml Sodium Chloride (Sodium Chloride 0.9%) 3 ml INH Q4H VAN Sodium Chloride (Sodium Chloride 0.9%) 3 ml INH Q4HRRT VAN Last Admin: 01/12/18 14:23 Dose: Not Given Sodium Chloride (Sodium Chloride 0.9%) 3 ml INH Q6H VAN Last Admin: 01/12/18 15:18 Dose: Not Given Sodium Chloride (Sodium Chloride 0.9%) 3 ml INH Q6H VAN Last Admin: 01/16/18 12:03 Dose: Not Given - Free Text/Narrative Note: I have examined the patient. I have discussed findings and treatment plan with the resident. I agree with the assessment and plan outlined in the following resident's note.
== END 2018-01-16 11:15 | DRG 177 ==
LOC: MW.ED 19:58 → UNDOADMIN 23:14 → MW.ICU 23:14 → MW.MS 01-13 14:50
PROVIDERS: ADMIT Internal Medicine; ATTEND Internal Medicine
DX: R06.00 Dyspnea, unspecified (principal); I50.9 Heart failure, unspecified; J69.0 Pneumonitis due to inhalation of food and vomit; J96.00 Acute respiratory failure, unspecified whether with hypoxia or hypercapnia; I11.0 Hypertensive heart disease with heart failure; I50.23 Acute on chronic systolic (congestive) heart failure; J39.8 Other specified diseases of upper respiratory tract; I48.91 Unspecified atrial fibrillation; R74.8 Abnormal levels of other serum enzymes; E11.649 Type 2 diabetes mellitus with hypoglycemia without coma; G31.84 Mild cognitive impairment of uncertain or unknown etiology; E78.00 Pure hypercholesterolemia, unspecified; I25.2 Old myocardial infarction; I25.10 Atherosclerotic heart disease of native coronary artery without angina pectoris; G47.30 Sleep apnea, unspecified; Z95.5 Presence of coronary angioplasty implant and graft; Z87.891 Personal history of nicotine dependence; Z87.820 Personal history of traumatic brain injury; Z79.899 Other long term (current) drug therapy; Z79.4 Long term (current) use of insulin
CPT/HCPCS: 36415; 36600; 71045; 80053; 81001; 82803; 82962 ×2; 83605; 83880; 84484; 85025; 85610; 87804 ×2; 94660; 96374; 99285; A9270; J7060; 70490; 70490-26; 71250; 71250-26; 80048; 83735; 84100; 87070; 87205; 93005; 94640; 94667; 94668; 97161-GP; 99284; J0696; J1160; J1644; J1815-GY; J1940; J1956; J3475

== ENCOUNTER 2018-02-17 15:37 | Emergency (ER) | payer MEDICARE ==
[2018-02-17] MEDS ORDERED: Sodium Chloride 0.9% 10 ML Syringe FLUSH PRN (15:51)
[2018-02-17] MEDS ORDERED: Sodium Chloride 0.9% 2.5 ML Syringe FLUSH PRN (15:51)
--- NOTE | 2018-02-17 16:28 | EDM.PDOC ---
ED HPI GENERAL MEDICAL PROBLEM - General Chief Complaint: General Stated Complaint: DIZZY SPILL Time Seen by Provider: 02/17/18 15:53 Source of Information: Reports: Patient History Limitations: Reports: No Limitations - History of Present Illness INITIAL COMMENTS - FREE TEXT/NARRATIVE: History of present illness: []Patient has had a new recliner chair for the past week and last night he was trying to get out of it and lost his balance and fell and hit the floor hitting his head and spraining his right ankle Review of systems: As per history of present illness and below otherwise all systems reviewed and negative. Past medical history: As per history of present illness and as reviewed below otherwise noncontributory. Surgical history: As per history of present illness and as reviewed below otherwise noncontributory. Social history: No reported history of drug or alcohol abuse. Family history: As per history of present illness and as reviewed below otherwise noncontributory. Physical exam: General: Well developed, well nourished in NAD HEENT: Atraumatic, normocephalic, pupils reactive, negative for conjunctival pallor or scleral icterus, mucous membranes moist, throat clear, neck supple, nontender, trachea midline. Lungs: Clear to auscultation, breath sounds equal bilaterally, chest nontender. Heart: S1S2, regular, negative for clicks, rubs, or JVD. Abdomen: Soft, nondistended, nontender. Negative for masses or hepatosplenomegaly. Negative for costovertebral tenderness. Pelvis: Stable nontender. Genitourinary: Deferred. Rectal: Deferred. Extremities: Atraumatic, negative for cords or calf pain. Neurovascular unremarkable. Neuro: Awake, alert, oriented. Cranial nerves II through XII unremarkable. Cerebellum unremarkable. Motor and sensory unremarkable throughout. Exam nonfocal. Diagnostics: []CT head negative for ischemia, fracture or bleed. CBC negative chemistry shows a sodium 134, bilirubin of 1.4 and glucose 171. X-rays of his ankle show no fracture and chest x-ray is negative. Therapeutics: []Patient declined pain meds Impression: []Fall, ankle sprain, head contusion Plan: []Follow-up with primary care ice, elevate and Tylenol for pain in your ankle. Definitive disposition and diagnosis as appropriate pending reevaluation and review of above. - Related Data Allergies Allergy/AdvReac Type Severity Reaction Status Date / Time No Known Allergies Allergy Verified 02/17/18 15:51 Home Meds: Home Meds Carvedilol 3.125 mg PO DAILY 02/17/18 [History] Clopidogrel [Plavix] 75 mg PO DAILY 02/17/18 [History] Dutasteride [Avodart] 0.5 mg PO DAILY 02/17/18 [History] Fluconazole [Diflucan] 100 mg PO DAILY 02/17/18 [History] Furosemide 40 mg PO DAILY 02/17/18 [History] Insulin Aspart [NovoLOG] 100 units INJECT ASDIRECTED 02/17/18 [History] Insulin Detemir [Levemir] 100 units INJECT ASDIRECTED 02/17/18 [History] Losartan Potassium 25 mg PO DAILY 02/17/18 [History] PARoxetine [Paxil CR] 45 mg PO DAILY 02/17/18 [History] Spironolactone [Aldactone] 25 mg PO DAILY 02/17/18 [History] Tamsulosin [Flomax] 0.4 mg PO DAILY 02/17/18 [History] atorvaSTATin [Lipitor] 40 mg PO DAILY 02/17/18 [History] metFORMIN [Glucophage XR] 500 mg PO DAILY 02/17/18 [History] Past Medical History HEENT History: Reports: Other (See Below) Other HEENT History: hearing aids, wears glasses, top denture Cardiovascular History: Reports: Heart Failure, High Cholesterol, Hypertension, Other (See Below) Other Cardiovascular History: Heart Attack Respiratory History: Reports: Other (See Below) Other Respiratory History: Fluid on lungs Gastrointestinal History: Reports: Other (See Below) Other Gastrointestinal History: occasional heartburn Genitourinary History: Reports: Other (See Below) Other Genitourinary History: frequent urination occasional incontinence Musculoskeletal History: Reports: None Neurological History: Reports: Other (See Below) Other Neuro History: states had holes drilled in his skull following concusion at 18 yrs old Psychiatric History: Reports: None Other Psychiatric History: hx of alcohol abuse Endocrine/Metabolic History: Reports: Diabetes, Type II Hematologic History: Reports: None Immunologic History: Reports: None Oncologic (Cancer) History: Reports: None Dermatologic History: Reports: None - Infectious Disease History Infectious Disease History: Reports: Chicken Pox, Measles, Mumps - Past Surgical History Head Surgeries/Procedures: Reports: None HEENT Surgical History: Reports: Other (See Below) Other HEENT Surgeries/Procedures: hx fx jaw Cardiovascular Surgical History: Reports: Coronary Artery Stent Respiratory Surgical History: Reports: None GI Surgical History: Reports: None Male Surgical History: Reports: Vasectomy Endocrine Surgical History: Reports: None Neurological Surgical History: Reports: None Musculoskeletal Surgical History: Reports: None Oncologic Surgical History: Reports: None Dermatological Surgical History: Reports: None Social & Family History - Family History Family Medical History: Noncontributory Psychiatric: Reports: Other (See Below) Other Psychiatric Family History: alcohol abuse-brother Oncologic: Reports: Breast Other Oncologic Family History: Mother - Tobacco Use Smoking Status *Q: Never Smoker Second Hand Smoke Exposure: No - Caffeine Use Caffeine Use: Reports: Coffee - Recreational Drug Use Recreational Drug Use: No ED ROS GENERAL - Review of Systems Review Of Systems: See Below (See history of present illness) ED EXAM, GENERAL - Physical Exam Exam: See Below (See history of present illness) Course - Vital Signs Last Recorded V/S: Last Vital Signs Temp 96.4 F 02/17/18 15:51 Pulse 75 02/17/18 15:51 Resp 18 02/17/18 15:51 BP 119/73 02/17/18 15:51 Pulse Ox 96 02/17/18 15:51 - Orders/Labs/Meds Orders: Active Orders 24 hr Category Date Time Status EKG Documentation Completion [RC] STAT Care 02/17/18 15:51 Active Ankle Min 3V Rt [CR] Stat Exams 02/17/18 16:36 Taken Chest 1V Frontal [CR] Stat Exams 02/17/18 15:51 Taken Head wo Cont [CT] Stat Exams 02/17/18 15:51 Taken UA W/MICROSCOPIC [URIN] Stat Lab 02/17/18 17:12 Ordered Sodium Chloride 0.9% [Saline Flush] Med 02/17/18 15:51 Active 10 ml FLUSH ASDIRECTED PRN Sodium Chloride 0.9% [Saline Flush] Med 02/17/18 15:51 Active 2.5 ml FLUSH ASDIRECTED PRN Saline Lock Insert [OM.PC] Stat Oth 02/17/18 15:51 Ordered Medication Orders Sodium Chloride (Saline Flush) 10 ml FLUSH ASDIRECTED PRN PRN Reason: Keep Vein Open Sodium Chloride (Saline Flush) 2.5 ml FLUSH ASDIRECTED PRN PRN Reason: Keep Vein Open Labs: Laboratory Tests 02/17/18 02/17/18 Range/Units 15:56 15:56 WBC 6.72 (4.0-11.0) K/uL RBC 5.71 (4.50-5.90) M/uL Hgb 16.4 (13.0-17.0) g/dL Hct 48.0 (38.0-50.0) % MCV 84.1 (80.0-98.0) fL MCH 28.7 (27.0-32.0) pg MCHC 34.2 (31.0-37.0) g/dL RDW Std Deviation 41.4 (28.0-62.0) fl RDW Coeff of Osvalod 14 (11.0-15.0) % Plt Count 134 L (150-400) K/uL MPV 9.80 (7.40-12.00) fL Neut % (Auto) 47.6 L (48.0-80.0) % Lymph % (Auto) 40.9 H (16.0-40.0) % Rock % (Auto) 8.8 (0.0-15.0) % Eos % (Auto) 2.4 (0.0-7.0) % Baso % (Auto) 0.3 (0.0-1.5) % Neut # (Auto) 3.2 (1.4-5.7) K/uL Lymph # (Auto) 2.8 H (0.6-2.4) K/uL Rock # (Auto) 0.6 (0.0-0.8) K/uL Eos # (Auto) 0.2 (0.0-0.7) K/uL Baso # (Auto) 0.0 (0.0-0.1) K/uL Nucleated RBC % 0.0 /100WBC Nucleated RBCs # 0 K/uL Sodium 134 L (136-148) mmol/L Potassium 4.2 (3.5-5.1) mmol/L Chloride 100 (98-107) mmol/L Carbon Dioxide 23.6 (21.0-32.0) mmol/L BUN 17 (7.0-18.0) mg/dL Creatinine 1.3 (0.8-1.3) mg/dL Est Cr Clr Drug Dosing 54.59 mL/min Estimated GFR (MDRD) 54.6 ml/min Glucose 171 H (74-106) mg/dL Calcium 10.1 (8.5-10.1) mg/dL Total Bilirubin 1.4 H (0.2-1.0) mg/dL AST 35 (15-37) IU/L ALT 59 (14-63) IU/L Alkaline Phosphatase 82 (46-116) U/L Troponin I < 0.050 (0.000-0.056) ng/mL Total Protein 7.6 (6.4-8.2) g/dL Albumin 4.0 (3.4-5.0) g/dL Globulin 3.6 H (2.0-3.5) g/dL Albumin/Globulin Ratio 1.1 L (1.3-2.8) Meds: Medications Generic Name Dose Route Start Last Admin Trade Name Freq PRN Reason Stop Dose Admin Sodium Chloride 10 ml 02/17/18 15:51 Saline Flush FLUSH ASDIRECTED PRN Keep Vein Open Sodium Chloride 2.5 ml 02/17/18 15:51 Saline Flush FLUSH ASDIRECTED PRN Keep Vein Open Departure - Departure Time of Disposition: 17:40 Disposition: Home, Self-Care 01 Condition: Good Clinical Impression: Fall Qualifiers: Encounter type: initial encounter Qualified Code(s): W19.XXXA - Unspecified fall, initial encounter Right ankle sprain Qualifiers: Encounter type: initial encounter Involved ligament of ankle: unspecified ligament Qualified Code(s): S93.401A - Sprain of unspecified ligament of right ankle, initial encounter Head contusion Qualifiers: Encounter type: initial encounter Contusion of head detail: unspecified part of head Qualified Code(s): S00.93XA - Contusion of unspecified part of head, initial encounter - Discharge Information Referrals: PCP,Unknown [Primary Care Provider] - Forms: ED Department Discharge Additional Instructions: The following information is given to patients seen in the emergency department who are being discharged to home. This information is to outline your options for follow-up care. We provide all patients seen in our emergency department with a follow-up referral. The need for follow-up, as well as the timing and circumstances, are variable depending upon the specifics of your emergency department visit. If you don't have a primary care physician on staff, we will provide you with a referral. We always advise you to contact your personal physician following an emergency department visit to inform them of the circumstance of the visit and for follow-up with them and/or the need for any referrals to a consulting specialist. The emergency department will also refer you to a specialist when appropriate. This referral assures that you have the opportunity for follow-up care with a specialist. All of these measure are taken in an effort to provide you with optimal care, which includes your follow-up. Under all circumstances we always encourage you to contact your private physician who remains a resource for coordinating your care. When calling for follow-up care, please make the office aware that this follow-up is from your recent emergency room visit. If for any reason you are refused follow-up, please contact the [facility] Emergency Department at and asked to speak to the emergency department charge nurse. Tylenol, ice, elevate ankle for comfort, follow up with primary care return if symptoms worsen or change - My Orders Last 24 Hours: My Active Orders 02/17/18 16:36 Ankle Min 3V Rt [CR] Stat 02/17/18 17:12 UA W/MICROSCOPIC [URIN] Stat - Assessment/Plan Last 24 Hours: My Active Orders 02/17/18 16:36 Ankle Min 3V Rt [CR] Stat 02/17/18 17:12 UA W/MICROSCOPIC [URIN] Stat
[2018-02-17 16:40] LABS: CHLORIDE,CL 100 mmol/L (98-107); SODIUM,NA 134 mmol/L (136-148)
[2018-02-17 18:31] VITALS: BP 108/67
--- NOTE | 2018-02-20 17:50 | CT ---
EXAM DATE: 02/17/18 PATIENT'S AGE: 72 Patient: CUONG TSAI Facility: [place], [place] Site . Site : 1945 Study: CT Head WO CONT [id number]/11/2018 4:43:05 PM Ordering Physician: Doctor Thorne Final Report: INDICATION: Dizziness, fell out of a recliner last night. TECHNIQUE: CT Head without i.v. contrast. COMPARISON: Brain MRI dated 10/07/2009. FINDINGS: CSF spaces: Within normal limits for age. Brain parenchyma: Mild diffuse cortical atrophy is noted. There are low attenuation white matter changes, likely due to chronic microvascular disease. There is preservation of the van-white matter junction. No sign of mass, hemorrhage, or midline shift seen. Skull base and calvarium: The visualized paranasal sinuses are well aerated. The mastoid air cells are clear. The visualized orbits are grossly unremarkable. No skull fractures are seen. IMPRESSION: 1. No evidence of acute infarction, intracranial hemorrhage, or mass effect seen. Dictated by Gonzalez Tracey MD @ 02/17/2018 4:54:27 PM Please note that all CT scans at this facility use dose modulation, iterative reconstruction, and/or weight-based dosing when appropriate to reduce radiation dose to as low as reasonably achievable. Dictated by: Gonzalez Tracey MD @ 02/17/2018 16:54:36 (Electronic Signature) Report Signed by Proxy. [facility]ENTER[facility]he[facility]
--- NOTE | 2018-02-20 17:53 | CR ---
EXAM DATE: 02/17/18 PATIENT'S AGE: 72 Patient: CUONG TSAI Facility: [place], [place] Site . Site : 1945 Study: XRay Extremity Right ANKLE [id number]/11/2018 4:53:28 PM Ordering Physician: Riky Stapleton Final Report: INDICATION: PAIN IN RIGHT ANKLE. TECHNIQUE: Ankle radiograph 3 views COMPARISON: None FINDINGS: Bones: Alignment is normal. No acute fractures or aggressive osseous lesions seen. Joint spaces: The visualized tibiotalar, subtalar, and midfoot joints are unremarkable in appearance. No joint effusion is seen. Soft tissues: Kager`s fat pad is normal in appearance. The Achilles` tendon is normal in appearance. No radiopaque foreign bodies are noted. IMPRESSION: 1. No acute osseous injuries are identified. Dictated by Gonzalez Tracey MD @ 02/17/2018 5:33:47 PM Dictated by: Gonzalez Tracey MD @ 02/17/2018 17:33:52 (Electronic Signature) Report Signed by Proxy. [facility]
--- NOTE | 2018-02-20 17:53 | CR ---
EXAM DATE: 02/17/18 PATIENT'S AGE: 72 Patient: CUONG TSAI Facility: [place], [place] Site . Site : 1945 Study: XRay Chest [id number]/11/2018 4:52:48 PM Ordering Physician: Doctor Thorne Final Report: INDICATION: Dizziness. TECHNIQUE: Chest radiograph 1 view COMPARISON: None FINDINGS: Cardiovascular and mediastinum: The heart silhouette is normal in size and morphology. The mediastinum is normal in appearance. Lungs and pleural spaces: Both lungs are unremarkable in appearance. No sign of pleural effusion seen. No pneumothorax is identified. Bones and soft tissues: No significant findings. IMPRESSION: 1. No acute cardiopulmonary disease is seen. Dictated by Gonzalez Tracey MD @ 02/17/2018 4:59:22 PM Dictated by: Gonzalez Tracey MD @ 02/17/2018 16:59:31 (Electronic Signature) Report Signed by Proxy. [facility]
== END 2018-02-17 17:59 | disposition home or self-care (01) ==
LOC: MW.ED 15:37
DX: S93.401A Sprain of unspecified ligament of right ankle, initial encounter (principal); S00.93XA Contusion of unspecified part of head, initial encounter; I11.0 Hypertensive heart disease with heart failure; I50.9 Heart failure, unspecified; E78.00 Pure hypercholesterolemia, unspecified; E11.9 Type 2 diabetes mellitus without complications; W07.XXXA Fall from chair, initial encounter; Z79.899 Other long term (current) drug therapy; Z79.4 Long term (current) use of insulin; Z79.01 Long term (current) use of anticoagulants
CPT/HCPCS: 70450; 70450-26; 71045; 71045-26; 73610-26-RT; 73610-RT; 80053; 81001; 84484; 85025; 93005; 99285-25

== ENCOUNTER 2019-03-05 12:56 | Emergency (ER) | payer MEDICARE ==
[2019-03-05 13:41] VITALS: BP 137/96
--- NOTE | 2019-03-05 13:45 | EDM.PDOC ---
ED HPI GENERAL MEDICAL PROBLEM - General Chief Complaint: Medication Administration Stated Complaint: INSULIN Time Seen by Provider: 03/05/19 13:44 Source of Information: Reports: Patient - History of Present Illness INITIAL COMMENTS - FREE TEXT/NARRATIVE: HISTORY AND PHYSICAL: History of present illness: [Patient ran out of his Lantus pen which he uses 25 units a.m. and p.m., is in no distress his glucoses currently to 25 pharmacies are not open we are trying to find a solution for his Lantus pen No fever nausea vomiting chills sweats no chest pain shortness breath headache dizziness palpitation no bowel or urine symptoms] Review of systems: As per history of present illness and below otherwise all systems reviewed and negative. Past medical history: As per history of present illness and as reviewed below otherwise noncontributory. Surgical history: As per history of present illness and as reviewed below otherwise noncontributory. Social history: No reported history of drug or alcohol abuse. Family history: As per history of present illness and as reviewed below otherwise noncontributory. Physical exam: HEENT: Atraumatic, normocephalic, pupils reactive, negative for conjunctival pallor or scleral icterus, mucous membranes moist, throat clear, neck supple, nontender, trachea midline. Lungs: Clear to auscultation, breath sounds equal bilaterally, chest nontender. Heart: S1S2, regular, negative for clicks, rubs, or JVD. Abdomen: Soft, nondistended, nontender. Negative for masses or hepatosplenomegaly. Negative for costovertebral tenderness. Pelvis: Stable nontender. Genitourinary: Deferred. Rectal: Deferred. Extremities: Atraumatic, negative for cords or calf pain. Neurovascular unremarkable. Neuro: Awake, alert, oriented. Cranial nerves II through XII unremarkable. Cerebellum unremarkable. Motor and sensory unremarkable throughout. Exam nonfocal. Diagnostics: [Accu-Chek 227 ] Therapeutics: Apparently we were able to obtain a Lantus pen through our pharmacy and I provided this for the patient Impression: [Hyperglycemia medications/insulin] Definitive disposition and diagnosis as appropriate pending reevaluation and review of above. - Related Data Allergies Allergy/AdvReac Type Severity Reaction Status Date / Time No Known Allergies Allergy Verified 03/05/19 13:41 Home Meds: Home Meds Carvedilol 3.125 mg PO DAILY 02/17/18 [History] Clopidogrel [Plavix] 75 mg PO DAILY 02/17/18 [History] Dutasteride [Avodart] 0.5 mg PO DAILY 02/17/18 [History] Fluconazole [Diflucan] 100 mg PO DAILY 02/17/18 [History] Furosemide 40 mg PO DAILY 02/17/18 [History] Insulin Aspart [NovoLOG] 100 units INJECT ASDIRECTED 02/17/18 [History] Insulin Detemir [Levemir] 100 units INJECT ASDIRECTED 02/17/18 [History] Losartan Potassium 25 mg PO DAILY 02/17/18 [History] PARoxetine [Paxil CR] 45 mg PO DAILY 02/17/18 [History] Spironolactone [Aldactone] 25 mg PO DAILY 02/17/18 [History] Tamsulosin [Flomax] 0.4 mg PO DAILY 02/17/18 [History] atorvaSTATin [Lipitor] 40 mg PO DAILY 02/17/18 [History] metFORMIN [Glucophage XR] 500 mg PO DAILY 02/17/18 [History] Past Medical History HEENT History: Reports: Other (See Below) Other HEENT History: hearing aids, wears glasses, top denture Cardiovascular History: Reports: Heart Failure, High Cholesterol, Hypertension, Other (See Below) Other Cardiovascular History: Heart Attack Respiratory History: Reports: Other (See Below) Other Respiratory History: Fluid on lungs Gastrointestinal History: Reports: Other (See Below) Other Gastrointestinal History: occasional heartburn Genitourinary History: Reports: Other (See Below) Other Genitourinary History: frequent urination occasional incontinence Musculoskeletal History: Reports: None Neurological History: Reports: Other (See Below) Other Neuro History: states had holes drilled in his skull following concusion at 18 yrs old Psychiatric History: Reports: None Other Psychiatric History: hx of alcohol abuse Endocrine/Metabolic History: Reports: Diabetes, Type II Hematologic History: Reports: None Immunologic History: Reports: None Oncologic (Cancer) History: Reports: None Dermatologic History: Reports: None - Infectious Disease History Infectious Disease History: Reports: Chicken Pox, Measles, Mumps - Past Surgical History Head Surgeries/Procedures: Reports: None HEENT Surgical History: Reports: Other (See Below) Other HEENT Surgeries/Procedures: hx fx jaw Cardiovascular Surgical History: Reports: Coronary Artery Stent Respiratory Surgical History: Reports: None GI Surgical History: Reports: None Male Surgical History: Reports: Vasectomy Endocrine Surgical History: Reports: None Neurological Surgical History: Reports: None Musculoskeletal Surgical History: Reports: None Oncologic Surgical History: Reports: None Dermatological Surgical History: Reports: None Social & Family History - Family History Family Medical History: Noncontributory Psychiatric: Reports: Other (See Below) Other Psychiatric Family History: alcohol abuse-brother Oncologic: Reports: Breast Other Oncologic Family History: Mother - Tobacco Use Smoking Status *Q: Never Smoker - Caffeine Use Caffeine Use: Reports: Coffee - Recreational Drug Use Recreational Drug Use: No ED ROS GENERAL - Review of Systems Review Of Systems: See Below ED EXAM, GENERAL - Physical Exam Exam: See Below Course - Vital Signs Last Recorded V/S: Last Vital Signs Temp 97.8 F 03/05/19 13:39 Pulse 62 03/05/19 13:39 Resp 18 03/05/19 13:39 BP 137/96 H 03/05/19 13:39 Pulse Ox 98 03/05/19 13:39 - Orders/Labs/Meds Orders: Active Orders 24 hr Category Date Time Status Glucose [Blood Glucose Check, Bedside] [RC] ONETIME Care 03/05/19 13:42 Active Insulin Glarg,Human.Rec.Analog [LantUS Solostar] Med 03/05/19 21:00 Active 25 units SUBCUT BID Medication Orders Insulin Glargine (Lantus Solostar) 25 units SUBCUT BID [facility] Labs: Laboratory Tests 03/05/19 Range/Units 13:44 POC Glucose 227 H (60-110) mg/dL Meds: Medications Generic Name Dose Route Start Last Admin Trade Name Jordyn PRN Reason Stop Dose Admin Insulin Glargine 25 units 03/05/19 21:00 Lantus Solostar SUBCUT BID [facility] Departure - Departure Time of Disposition: 14:16 Disposition: Home, Self-Care 01 Condition: Good Clinical Impression: Medication administered - Discharge Information Referrals: PCP,Unknown [Primary Care Provider] - Forms: ED Department Discharge Additional Instructions: The following information is given to patients seen in the emergency department who are being discharged to home. This information is to outline your options for follow-up care. We provide all patients seen in our emergency department with a follow-up referral. The need for follow-up, as well as the timing and circumstances, are variable depending upon the specifics of your emergency department visit. If you don't have a primary care physician on staff, we will provide you with a referral. We always advise you to contact your personal physician following an emergency department visit to inform them of the circumstance of the visit and for follow-up with them and/or the need for any referrals to a consulting specialist. The emergency department will also refer you to a specialist when appropriate. This referral assures that you have the opportunity for follow-up care with a specialist. All of these measure are taken in an effort to provide you with optimal care, which includes your follow-up. Under all circumstances we always encourage you to contact your private physician who remains a resource for coordinating your care. When calling for follow-up care, please make the office aware that this follow-up is from your recent emergency room visit. If for any reason you are refused follow-up, please contact the [facility] emergency department at and asked to speak to the emergency department charge nurse. - My Orders Last 24 Hours: My Active Orders 03/05/19 21:00 Insulin Glarg,Human.Rec.Analog [LantUS Solostar] 25 units SUBCUT BID - Assessment/Plan Last 24 Hours: My Active Orders 03/05/19 21:00 Insulin Glarg,Human.Rec.Analog [LantUS Solostar] 25 units SUBCUT BID
[2019-03-05] MEDS ORDERED: Insulin Regular, Human 100 Units/ML 10 ML Vial SUBCUT STA (13:54)
[2019-03-05] MEDS ORDERED: Insulin Glargine,Human Rec. Analog 100 Units/ML 3 ML Pen SUBCUT SCH (21:00)
== END 2019-03-05 14:40 | disposition home or self-care (01) ==
LOC: MW.ED 12:56
DX: E11.65 Type 2 diabetes mellitus with hyperglycemia (principal); I11.0 Hypertensive heart disease with heart failure; I50.9 Heart failure, unspecified; Z79.4 Long term (current) use of insulin; Z79.899 Other long term (current) drug therapy; Z95.5 Presence of coronary angioplasty implant and graft
CPT/HCPCS: 82962; 99282

== ENCOUNTER 2024-11-15 17:19 | Inpatient (IN) | payer MEDICARE ==
[2024-11-15 17:45] LABS: BASOPHILS ABSOLUTE AUTO 0.02 K/uL (0.00-0.20); BASOPHILS PERCENT AUTO 0.2 % (0.0-1.0); EOSINOPHILS ABSOLUTE AUTO 0.01 K/uL (0.00-0.45); EOSINOPHILS PERCENT AUTO 0.1 % (0.0-6.0); HEMATOCRIT 45.8 % (42.0-52.0); HEMOGLOBIN 14.5 g/dL (14.0-18.0); IMMATURE GRAN ABSOLUTE AUTO 0.05 K/uL (0.00-0.05); IMMATURE GRAN PERCENT AUTO 0.4 % (0.0-0.4); LYMPHOCYTES ABSOLUTE AUTO 0.46 K/uL (1.00-4.80); LYMPHOCYTES PERCENT AUTO 4.1 % (24.0-44.0); MEAN CORPUSCULAR HGB CONC 31.7 g/dL (32.0-36.0); MEAN CORPUSCULAR VOLUME 88.6 fL (83.0-99.0); MEAN PLATELET VOLUME 9.9 fL (9.4-12.4); MONOCYTES ABSOLUTE AUTO 0.74 K/uL (0.00-0.80); MONOCYTES PERCENT AUTO 6.6 % (0.0-8.0); NEUTROPHILS ABSOLUTE AUTO 9.91 K/uL (1.80-7.70); NEUTROPHILS PERCENT AUTO 88.6 % (41.0-71.0); PLATELET COUNT,PLT 200 K/uL (150-400); RED BLOOD CELL COUNT 5.17 M/uL (4.52-5.90); WHITE BLOOD CELL COUNT,WBC 11.19 K/uL (3.9-11.3)
[2024-11-15 17:53] LABS: INR 1.36 (0.86-1.11)
[2024-11-15] MEDS: Furosemide 40 MG/4 ML VIAL IVPUSH ONE ×2 (18:19→20:57)
[2024-11-15 18:20] LABS: A/G RATIO 1.1 (0.9-1.6); ALBUMIN 3.7 g/dL (3.4-5.0); BILIRUBIN TOTAL 2.6 mg/dL (0.2-1.0); CALCIUM 8.7 mg/dL (8.5-10.1); CARBON DIOXIDE,CO2 24.2 mmol/L (21.0-32.0); CREATININE 1.5 mg/dL (0.8-1.3); EST CRCL DRUG DOSING (CG) 45.27 mL/min; POTASSIUM,K 3.9 mmol/L (3.5-5.1); PROTEIN TOTAL,TP 7.2 g/dL (6.4-8.2)
[2024-11-16] MEDS: 50% Dextrose in Water 50 ML Syringe IVPUSH ONE (04:20)
[2024-11-16] MEDS: Sodium Chloride 0.9% 10 ML Syringe FLUSH PRN (04:28)
[2024-11-16] MEDS: Sodium Chloride 0.9% 2.5 ML Syringe FLUSH PRN (04:28)
[2024-11-16] MEDS: 50% Dextrose in Water 50 ML Syringe ONE (04:28)
[2024-11-16 05:15] LABS: BASOPHILS ABSOLUTE AUTO 0.02 K/uL (0.00-0.20); BASOPHILS PERCENT AUTO 0.2 % (0.0-1.0); HEMATOCRIT 43.3 % (42.0-52.0); HEMOGLOBIN 14.1 g/dL (14.0-18.0); IMMATURE GRAN ABSOLUTE AUTO 0.02 K/uL (0.00-0.05); IMMATURE GRAN PERCENT AUTO 0.2 % (0.0-0.4); LYMPHOCYTES ABSOLUTE AUTO 0.86 K/uL (1.00-4.80); MEAN CORPUSCULAR HEMOGLOBIN 28.4 pg (28.0-32.0); MEAN CORPUSCULAR HGB CONC 32.6 g/dL (32.0-36.0); MEAN CORPUSCULAR VOLUME 87.3 fL (83.0-99.0); MEAN PLATELET VOLUME 9.8 fL (9.4-12.4); MONOCYTES ABSOLUTE AUTO 0.67 K/uL (0.00-0.80); MONOCYTES PERCENT AUTO 6.2 % (0.0-8.0); NEUTROPHILS PERCENT AUTO 85.4 % (41.0-71.0); PLATELET COUNT,PLT 177 K/uL (150-400); RED BLOOD CELL COUNT 4.96 M/uL (4.52-5.90); WHITE BLOOD CELL COUNT,WBC 10.77 K/uL (3.9-11.3)
[2024-11-16 05:23] LABS: PH,VENOUS 7.36 (7.31-7.41)
[2024-11-16 05:45] LABS: A/G RATIO 1.1 (0.9-1.6); ALBUMIN 3.5 g/dL (3.4-5.0); BILIRUBIN TOTAL 3.5 mg/dL (0.2-1.0); CALCIUM 9.1 mg/dL (8.5-10.1); CARBON DIOXIDE,CO2 25.1 mmol/L (21.0-32.0); CREATININE 1.4 mg/dL (0.8-1.3); EST CRCL DRUG DOSING (CG) 48.5 mL/min; POTASSIUM,K 4.4 mmol/L (3.5-5.1); PROTEIN TOTAL,TP 6.7 g/dL (6.4-8.2)
[2024-11-16] MEDS: Furosemide 40 MG/4 ML VIAL IVPUSH ONE (07:08)
[2024-11-16] MEDS: Potassium Chloride 20 MEQ Tab.ER PO SCH (09:35)
[2024-11-16] MEDS: Digoxin 125 MCG Tab PO SCH (09:35)
[2024-11-16] MEDS: Spironolactone 25 MG Tab PO SCH ×2 (09:36→20:10)
[2024-11-16] MEDS: Carvedilol 3.125 MG Tab PO SCH ×2 (09:36→20:06)
[2024-11-16] MEDS: Clopidogrel 75 MG Tab PO SCH (09:37)
[2024-11-16] MEDS: Aspirin 81 MG Tab.Chew PO SCH (09:38)
[2024-11-16] MEDS: Iopamidol 755 MG/ML 500 ML Multipack Bottle IVPUSH STA (10:37)
[2024-11-16] MEDS: cefTRIAXone 2 GM in Sodium Chloride 0.9% 50 ML IV ONE (11:49)
[2024-11-16] MEDS: Azithromycin 500 MG in Sodium Chloride 0.9% 250 ML IV ONE (12:30)
[2024-11-16 12:53] LABS: LACTIC ACID 1.5 mmol/L (0.4-2.0)
[2024-11-16] MEDS ORDERED: Sodium Chloride 0.9% 2.5 ML Syringe FLUSH PRN (13:51)
[2024-11-16] MEDS ORDERED: Polyethylene Glycol 3350 Powder 17 GM Packet PO PRN (13:51)
[2024-11-16] MEDS ORDERED: Ondansetron 4 MG/2 ML SDV IVPUSH PRN (13:51)
[2024-11-16] MEDS ORDERED: Docusate Sodium 100 MG Cap PO PRN (13:51)
[2024-11-16] MEDS ORDERED: Acetaminophen 325 MG Tab PO PRN (13:51)
[2024-11-16] MEDS ORDERED: Sodium Chloride 0.9% 10 ML Syringe FLUSH PRN (13:51)
[2024-11-16] MEDS ORDERED: Glucagon,Human Recombinant 1 MG Vial IM PRN (14:00)
[2024-11-16] MEDS ORDERED: LORazepam 1 MG Tab PO PRN (14:52)
[2024-11-16] MEDS: guaiFENesin 100 MG/5 ML Soln 5 ML UD Cup PO PRN (15:27)
[2024-11-16] MEDS: Furosemide 40 MG/4 ML VIAL IVPUSH SCH (15:29)
[2024-11-16] MEDS: 50% Dextrose in Water 50 ML Syringe IVPUSH PRN (16:21)
[2024-11-16] MEDS: Albuterol/Ipratropium 3.0-0.5 MG/3 ML Neb Soln NEB PRN (16:21)
[2024-11-16] MEDS: Insulin Aspart 100 Units/ML 3 ML Pen SUBCUT SCH (17:04)
[2024-11-16] MEDS: Heparin Sodium 5,000 Units/ML Vial SUBCUT SCH (18:48)
[2024-11-16] MEDS: Furosemide 20 MG/2 ML VIAL IVPUSH ONE (19:55)
[2024-11-16] MEDS: Folic Acid 1 MG Tab PO SCH (20:10)
[2024-11-16] MEDS: Thiamine 100 MG Tab PO SCH (20:10)
[2024-11-16] MEDS: Melatonin 3 MG Tab PO PRN (20:14)
[2024-11-16] MEDS ORDERED: Insulin Glargine,Hum.Rec.Anlog 100 UNIT/ML 3 ML Pen SUBCUT SCH (21:00)
[2024-11-17] MEDS: Dextrose 5%-0.45% NaCl 1,000 ML IV SCH (00:22)
[2024-11-17 07:06] LABS: BASOPHILS ABSOLUTE AUTO 0.03 K/uL (0.00-0.20); BASOPHILS PERCENT AUTO 0.4 % (0.0-1.0); EOSINOPHILS ABSOLUTE AUTO 0.02 K/uL (0.00-0.45); EOSINOPHILS PERCENT AUTO 0.2 % (0.0-6.0); HEMATOCRIT 42.9 % (42.0-52.0); HEMOGLOBIN 14.1 g/dL (14.0-18.0); IMMATURE GRAN ABSOLUTE AUTO 0.04 K/uL (0.00-0.05); IMMATURE GRAN PERCENT AUTO 0.5 % (0.0-0.4); LYMPHOCYTES ABSOLUTE AUTO 1.81 K/uL (1.00-4.80); LYMPHOCYTES PERCENT AUTO 22.1 % (24.0-44.0); MEAN CORPUSCULAR HEMOGLOBIN 28.5 pg (28.0-32.0); MEAN CORPUSCULAR HGB CONC 32.9 g/dL (32.0-36.0); MEAN CORPUSCULAR VOLUME 86.7 fL (83.0-99.0); MEAN PLATELET VOLUME 10.3 fL (9.4-12.4); MONOCYTES ABSOLUTE AUTO 0.89 K/uL (0.00-0.80); MONOCYTES PERCENT AUTO 10.9 % (0.0-8.0); NEUTROPHILS ABSOLUTE AUTO 5.41 K/uL (1.80-7.70); NEUTROPHILS PERCENT AUTO 65.9 % (41.0-71.0); PLATELET COUNT,PLT 171 K/uL (150-400); RED BLOOD CELL COUNT 4.95 M/uL (4.52-5.90)
[2024-11-17 07:35] LABS: A/G RATIO 1.1 (0.9-1.6); ALBUMIN 3.3 g/dL (3.4-5.0); BILIRUBIN TOTAL 2.9 mg/dL (0.2-1.0); CALCIUM 8.9 mg/dL (8.5-10.1); CARBON DIOXIDE,CO2 25.2 mmol/L (21.0-32.0); CREATININE 1.8 mg/dL (0.8-1.3); EST CRCL DRUG DOSING (CG) 37.72 mL/min; MAGNESIUM 2.3 mg/dL (1.8-2.4); POTASSIUM,K 4.2 mmol/L (3.5-5.1); PROTEIN TOTAL,TP 6.4 g/dL (6.4-8.2)
[2024-11-17] MEDS: Digoxin 125 MCG Tab PO SCH (08:41)
[2024-11-17] MEDS: Azithromycin 250 MG Tab PO SCH (08:42)
[2024-11-17] MEDS: Clopidogrel 75 MG Tab PO SCH (08:42)
[2024-11-17] MEDS: Finasteride 5 MG Tab PO SCH (08:42)
[2024-11-17] MEDS: Empagliflozin 10 MG Tab PO SCH (08:42)
[2024-11-17] MEDS: Aspirin 81 MG Tab.EC PO SCH (08:43)
[2024-11-17] MEDS: cefTRIAXone 1 GM in Sodium Chloride 0.9% 50 ML IV SCH (08:44)
[2024-11-17] MEDS ORDERED: Tamsulosin 0.4 MG Cap.ER PO SCH (09:00)
[2024-11-17] MEDS ORDERED: Losartan 25 MG Tab PO SCH (09:00)
[2024-11-17] MEDS: PARoxetine 20 MG Tab PO SCH (10:00)
[2024-11-17] MEDS: PAROXETINE 25 MG PO SCH (10:06)
[2024-11-17 15:47] VITALS: BP 118/79; PULSE 72
[2024-11-17] MEDS ORDERED: atorvaSTATin 40 MG Tab PO SCH (21:00)
== END 2024-11-17 15:48 | disposition home or self-care (01) | DRG 193 ==
LOC: MW.ED 17:19 → MW.ICU 20:48 → MW.MS 11-17 11:42
PROVIDERS: ADMIT Family Medicine; ATTEND Family Medicine
PROC: 5A09357 Assistance with Respiratory Ventilation, Less than 24 Consecutive Hours, Continuous Positive Airway Pressure (ICD-10-PCS; principal; 2024-11-16)
DX: J18.9 Pneumonia, unspecified organism (principal); I50.9 Heart failure, unspecified; J90 Pleural effusion, not elsewhere classified; E87.70 Fluid overload, unspecified; R60.0 Localized edema; I50.23 Acute on chronic systolic (congestive) heart failure; I11.0 Hypertensive heart disease with heart failure; E11.9 Type 2 diabetes mellitus without complications; E78.00 Pure hypercholesterolemia, unspecified; I25.10 Atherosclerotic heart disease of native coronary artery without angina pectoris; I48.91 Unspecified atrial fibrillation; G47.33 Obstructive sleep apnea (adult) (pediatric); J39.8 Other specified diseases of upper respiratory tract; E11.649 Type 2 diabetes mellitus with hypoglycemia without coma; Z79.84 Long term (current) use of oral hypoglycemic drugs; Z79.4 Long term (current) use of insulin; Z79.899 Other long term (current) drug therapy; I25.2 Old myocardial infarction; Z95.5 Presence of coronary angioplasty implant and graft; Z98.890 Other specified postprocedural states; Z79.02 Long term (current) use of antithrombotics/antiplatelets; Z87.820 Personal history of traumatic brain injury; Z91.148 Patient's other noncompliance with medication regimen for other reason
CPT/HCPCS: 36415; 71046; 80053; 83690; 83880; 84484; 85025; 85610; 86850; 86900; 86901; 87428; 93005 ×2; 96374; 99285; J1940; 74177; 74177-26; 82803; 82947; 83605; 83735; 87040; 93010; 93306; 94660; 94667; A9270-GY; J0456; J0696; J1644; J3490; J7050; J7620-GY; J7799; Q9967